=== PATIENT | male | born 1995 | race Two or more races ===

== ENCOUNTER 2019-01-02 14:24 | Inpatient (IN) | payer MEDICAID ==
[2019-01-02] VITALS (9 sets, daily range): BP systolic 91–126; BP diastolic 44–80
[~2019-01-02] VITALS: Ht 165.1 cm; Wt 59.4 kg
[~2019-01-02 14:24] MED LIST: Cefepime HCl 1 GM in NS 55 ML IV STA
[2019-01-02] MEDS ORDERED: LORazepam Inj 2mg/ml 1ml IV ONE (14:30)
[2019-01-02] MEDS ORDERED: Sodium Chloride 1,900 ML IVLG ONE (14:30)
[2019-01-02] MEDS ORDERED: Acetaminophen 650 MG SUPP RECTAL ONE (14:30)
[2019-01-02] MEDS ORDERED: levETIRAcetam 500mg/NS100ml 100 ML IVPB ONE (14:30)
[2019-01-02] MEDS ORDERED: Vancomycin 1 GM in NS 275 ML IV ONE (14:30)
[2019-01-02] MEDS ORDERED: ALBUTEROL2.5 MG/3 M INH (14:36)
--- NOTE | 2019-01-02 14:40 | Emergency Room Report ---
History of Present Illness General Chief Complaint: Seizure Source: Family Member, Medical Record, EMS Present Illness HPI Patient is brought by EMS from a custodial facility. Apparently has a fever and also seizures. Patient has a tracheostomy and is unable to communicate at this time. According to family member he was discharged from [facility] yesterday. When he left the hospital he still had a fever. 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 He's been treated with by PLEX and IVIG. Also it appears that he got rituximab. When he was admitted on December 26 he did have evidence of possible pneumonia at that time. This was treated with antibiotics. Because of uncontrolled seizures he had respiratory failure. This finally led to a tracheostomy. The patient also has a gastrostomy tube. 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 His mom says that these are persistent and never extinguished. The patient is on Keppra and valproic acid. 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 Social History Narrative from SNF Reviewed Nursing Documentation: PMH: Agreed; PSxH: Agreed Nursing Documentation-PMH Hx Cardiac Problems: No - ENCEPHALOPY Hx Seizures: Yes Review of Systems All Other Systems: limited Physical Exam Vital Signs Date Time Temp Pulse Resp B/P (MAP) Pulse Ox O2 Delivery O2 Flow Rate FiO2 01/02/19 14:15 101.1 151 22 120/73 100 Ambu-Bag General Appearance: moderate distress, Chronically Ill Head: normocephalic, atraumatic Eyes: bilateral eye normal inspection, bilateral eye PERRL, bilateral eye abnormal EOM - constant stare ENT: dry mucus membranes, other - constant motor movement of lips and mough Neck: supple, tracheotomy Respiratory: respiratory distress, rales, rhonchi Cardiovascular #1: no edema, no JVD, tachycardia Cardiovascular #2: 2+ radial (R) Gastrointestinal: other - Gastrostomy tube, decreased bowel sounds Genitourinary: other - Uncircumcised Musculoskeletal: other - Atrophy Neurologic: other - Not responding to exter with fasciculations of lips Psychiatric: other - Stupor Reflexes: 3+ knee (R), 3+ knee (L) Skin: other - Hot and diaphoretic Procedures Critical Care Time Critical Care Time Total Critical Care Time: 60 min bedside evaluation and treatment excludes procedures (EKG). Reason for critical care: sepsis, pneumonia, alternative history, treatment for possible seizures Possible complications: hypotension, hypertension, OH, shock, arrhythmias, metabolic acidosis, end organ damage, respiratory failure. Interventions: sepsis resuscitation, antibiotics, vent adjustment, repeat evaluations, discussions with family Course: Patient presents with fever, respiratory distress and allergic seizures with a history of encephalopathy. Sepsis resuscitation initiated and antibiotics begun. Patient placed on ventilator (prior was on CPAP). Discussion with family and review of records from [facility]. Treatment with Ativan and Keppra. Transient hypotension treated with fluid bolus. Reassessment. Discussion with RT ventilator setting adjustment. Determination of level of care. Discussion with admitting physician. Consultations: nursing staff, EMS, family, RT, admitting MD Performed by: Dr. Roman Tolerated well condition = serious Medical Decision Making Diagnostic Impression: Primary Impression: Sepsis Qualified Codes: A41.9 - Sepsis, unspecified organism Additional Impressions: Pneumonia Qualified Codes: J18.1 - Lobar pneumonia, unspecified organism Anti-NMDA receptor encephalitis ER Course Patient presents with fever, respiratory distress and h/o seizures. Differential includes sepsis, pneumonia, aspiration, uncontrolled seizures, electrolyte abnormalities amongst others. Evaluation will be with chest x-ray, EKG and labs. The patient will get sepsis resuscitation, Tylenol and antibiotics. The patient was on CPAP before he needs to be placed on a ventilator at this time. In addition Ativan has been ordered along with Keppra. At baseline Keppra level has been ordered also. As mom states baseline mentation and neurologic function, CT not indicated. EKG ST. CXR L infiltrate. Leukocytosis with L shift. CMP unremarkable. Initial lactate elevated. ABG with adequate oxygenation and pH. BP dropped 88. Still tachycardic. Rebolus. Improved with bolus. BP 99. Bolus LR as HR still elevated. Temp better. Repeat lactate normal. Good capillary fill. Mentation unchanged. (Sepsis re-evaluation) Appears to be fluid responsive. Valproic acid level undetected. No tonic/clonic seizure activity and Keppra had been given. Discussed with Dr. Leung and family. Decrease FIO2. Admit SDU. Laboratory Tests Test 01/02/19 14:55 01/02/19 15:00 01/02/19 15:05 01/02/19 15:40 Arterial Blood pH 7.438 (7.350-7.450) Arterial Blood Partial Pressure CO2 32.4 mmHg (35.0-45.0) L Arterial Blood Partial Pressure O2 159.4 mmHg (75.0-100.0) H Arterial Blood HCO3 21.4 mmol/L (22.0-26.0) L Arterial Blood Oxygen Saturation 98.6 % (95-100) Arterial Blood Base Excess -2.2 (-2-2) L Jurgen Test Positive White Blood Count 11.2 K/UL (4.8-10.8) H Red Blood Count 3.78 M/UL (4.70-6.10) L Hemoglobin 11.5 G/DL (14.2-18.0) L Hematocrit 34.3 % (42.0-52.0) L Mean Corpuscular Volume 91 FL (80-99) Mean Corpuscular Hemoglobin 30.4 PG (27.0-31.0) Mean Corpuscular Hemoglobin Concent 33.5 G/DL (32.0-36.0) Red Cell Distribution Width 13.1 % (11.6-14.8) Platelet Count 141 K/UL (150-450) L Mean Platelet Volume 5.8 FL (6.5-10.1) L Neutrophils (%) (Auto) % (45.0-75.0) Lymphocytes (%) (Auto) % (20.0-45.0) Monocytes (%) (Auto) % (1.0-10.0) Eosinophils (%) (Auto) % (0.0-3.0) Basophils (%) (Auto) % (0.0-2.0) Neutrophils % (Manual) Pending Lymphocytes % (Manual) Pending Prothrombin Time 12.7 SEC (9.30-11.50) H Prothrombin Time INR 1.2 (0.9-1.1) H PTT 31 SEC (23-33) Sodium Level 135 MMOL/L (136-145) L Potassium Level 3.8 MMOL/L (3.5-5.1) Chloride Level 98 MMOL/L (98-107) Carbon Dioxide Level 27 MMOL/L (21-32) Anion Gap 10 mmol/L (5-15) Blood Urea Nitrogen 16 mg/dL (7-18) Creatinine 0.7 MG/DL (0.55-1.30) Estimate Glomerular Filtration Rate > 60 mL/min (>60) Glucose Level 121 MG/DL (74-106) H Lactic Acid Level 2.10 mmol/L (0.4-2.0) H 1.40 mmol/L (0.66-2.22) Calcium Level 9.0 MG/DL (8.5-10.1) Magnesium Level 1.9 MG/DL (1.8-2.4) Total Bilirubin 0.2 MG/DL (0.2-1.0) Aspartate Amino Transferase (AST) 27 U/L (15-37) Alanine Aminotransferase (ALT) 39 U/L (12-78) Alkaline Phosphatase 70 U/L (46-116) Total Creatine Kinase 34 U/L (26-308) Troponin I 0.000 ng/mL (0.000-0.056) Pro-B-Type Natriuretic Peptide 443 pg/mL (0-125) H Total Protein 8.1 G/DL (6.4-8.2) Albumin 2.8 G/DL (3.4-5.0) L Globulin 5.3 g/dL Albumin/Globulin Ratio 0.5 (1.0-2.7) L Lipase 342 U/L (73-393) Valproic Acid Level < 3 MCG/ML (50-100) L Levetiracetam Level Pending Urine Color Pale yellow Urine Appearance Clear Urine pH 6 (4.5-8.0) Urine Specific [place] 1.010 (1.005-1.035) Urine Protein 1+ (NEGATIVE) H Urine Glucose (UA) Negative (NEGATIVE) Urine Ketones Negative (NEGATIVE) Urine Blood 5+ (NEGATIVE) H Urine Nitrite Negative (NEGATIVE) Urine Bilirubin Negative (NEGATIVE) Urine Urobilinogen Normal MG/DL (0.0-1.0) Urine Leukocyte Esterase Negative (NEGATIVE) Urine RBC 10-15 /HPF (0 - 0) H Urine WBC 2-4 /HPF (0 - 0) Urine Squamous Epithelial Cells None /LPF (NONE/OCC) Urine Bacteria Few /HPF (NONE) EKG Diagnostic Results Rate: tachycardiac Rhythm: other ST Segments: no acute changes Rhythm Strip Diag. Results EP Interpretation: yes Rhythm: no PVC's, no ectopy, other - Sinus tachycardia Chest X-Ray Diagnostic Results Chest X-Ray Diagnostic Results : Chest X-Ray Ordered: Yes # of Views/Limited/Complete: 1 View Indication: Other EP Interpretation: Yes Interpretation: no effusion, no pneumothorax, other - LLL infiltrate Impression: Other Electronically Signed by: Electronically signed by Kojo Roman MD Last Vital Signs Date Time Temp Pulse Resp B/P (MAP) Pulse Ox O2 Delivery O2 Flow Rate FiO2 01/03/19 05:24 107 27 35 01/03/19 05:00 134/95 (108) 100 01/03/19 04:00 100.8 01/03/19 04:00 Mechanical Ventilator 01/02/19 18:45 55.0 Status: improved Disposition: ADMITTED INPATIENT Condition: Critical Kojo Roman MD Jan 02, 2019 14:40
[2019-01-02] MEDS ORDERED: ASCORBIC ACID500 MG ORAL (14:48)
[2019-01-02] MEDS ORDERED: VALPROIC ACID250 MG GT (14:48)
[2019-01-02] MEDS ORDERED: SENNA8.6 M2 GT (14:48)
[2019-01-02] MEDS ORDERED: CLOBAZAM10 MG GT (14:48)
[2019-01-02] MEDS ORDERED: LANSOPRAZOLE15 MG GT (14:48)
[2019-01-02] MEDS ORDERED: LEVOCARNITINE330 M1 GT (14:48)
[2019-01-02] MEDS ORDERED: METAMUCIL1 PK1 GT (14:48)
[2019-01-02] MEDS ORDERED: ACETAMINOPHEN325 M1 GT (14:48)
[2019-01-02] MEDS ORDERED: ZINC SULFATE220 M2 ORAL (14:48)
[2019-01-02] MEDS ORDERED: MULTI-DELYN237 ML GT (14:48)
--- NOTE | 2019-01-02 14:53 | NUR ---
ED Nurse Note: Pt BIBA from [facility] s/p seizures starting today. EMS also stated that he has a fever. Upon arrival to ED, pt has a rectal temp of 101.7F. Pt is full code. Vent dependent. Gtube in place. Sating at 100%.
--- NOTE | 2019-01-02 15:19 | Diagnostic Imaging Report ---
Indication: Dyspnea Comparison: None A single view chest radiograph was obtained. Findings: Cardiomediastinal appearance is within normal limits for age. Tracheostomy noted. The lungs are clear. Pulmonary vascularity is appropriate. The diaphragmatic contour is smooth and costophrenic angles are sharp. No pleural effusions are identified. The bones are unremarkable. Impression: No acute findings
[2019-01-02 15:22] LABS: INR 1.2 (0.9-1.1)
[2019-01-02 15:29] LABS: HEMATOCRIT 34.3 % (42.0-52.0); HEMOGLOBIN 11.5 G/DL (14.2-18.0); MEAN CORPUSCULAR VOLUME 91 FL (80-99); PLATELET COUNT 141 K/UL (150-450); RED BLOOD COUNT 3.78 M/UL (4.70-6.10); RED CELL DISTRIBUTION WIDTH 13.1 % (11.6-14.8); WHITE BLOOD COUNT 11.2 K/UL (4.8-10.8)
[2019-01-02 15:31] LABS: ANION GAP 10 mmol/L (5-15); BLOOD UREA NITROGEN 16 mg/dL (7-18); CARBON DIOXIDE 27 MMOL/L (21-32); CHLORIDE 98 MMOL/L (98-107); CREATININE 0.7 MG/DL (0.55-1.30); POTASSIUM 3.8 MMOL/L (3.5-5.1); SODIUM 135 MMOL/L (136-145)
[2019-01-02 15:45] LABS: ALANINE AMINOTRANSFERASE 39 U/L (12-78); ALBUMIN 2.8 G/DL (3.4-5.0); ALBUMIN/GLOBULIN RATIO 0.5 (1.0-2.7); ALKALINE PHOSPHATASE 70 U/L (46-116); ASPARTATE AMINO TRANSFERASE 27 U/L (15-37); BILIRUBIN,TOTAL 0.2 MG/DL (0.2-1.0); CREATINE KINASE 34 U/L (26-308)
[2019-01-02 16:09] LABS: APPEARANCE,URINE CLEAR; BILIRUBIN, URINE NEGATIVE (NEGATIVE); COLOR,URINE PALE YELLOW; GLUCOSE, URINE (UA) NEGATIVE (NEGATIVE); KETONES,URINE NEGATIVE (NEGATIVE); LEUKOCYTE ESTERASE ,URINE NEGATIVE (NEGATIVE); NITRITE,URINE NEGATIVE (NEGATIVE); PH,URINE 6 (4.5-8.0); PROTEIN,URINE 1+ (NEGATIVE); UROBILINOGEN,URINE NORMAL MG/DL (0.0-1.0)
--- NOTE | 2019-01-02 16:32 | NUR ---
ED Nurse Note: Sacral redness noted on pt.
[2019-01-02] MEDS ORDERED: LR 1000ml 1,000 ML IV STA (17:18)
[2019-01-02] MEDS: LR 1000ml 1,000 ML IV SCH ×2 (17:30→17:45)
--- NOTE | 2019-01-02 18:12 | NUR ---
ED Nurse Note: Gave telephone report to ILA Damon.
--- NOTE | 2019-01-02 18:15 | NUR ---
ED Nurse Note: Waiting for RT arrival to send pt up to unit.
--- NOTE | 2019-01-02 18:44 | NUR ---
ED Nurse Note: Pt brought up to unit w/ no acute distress noted. Pt had not belongings.
--- NOTE | 2019-01-02 18:50 | NUR ---
NURSE NOTES: Pt admitted from ER via [facility]. Received hand-off report from Olivia THORPE. Pt is on vent via trach Shiley 8.0, AC16, VT450, FIO2 40%, Peep 5.0, with O2Sat 100%. GT in place, tubing clumped. Peripheral IV access on left AC #20G, and right FA #20G, both saline locks, patent/intact. Skin is intact, coccyx redness noted. Pt is on seizure precautions, with side rails padded, bed locked and in lowest position, with three side rails up and head of bed at semi-hunter's, and call light within reach. Magdaleno in place, draining clear/yellow urine. monitoring specialist displays ST, with heart rate fluctuating from 120's to 130's. Pt has no belonging's. Will continue to monitor and endorse to next shift for admission orders. Addendum: 01/02/19 at 1941 by PITER LEMUS RN Belonging's list was signed with the receiving nurse.
--- NOTE | 2019-01-02 19:00 | NUR ---
NURSE NOTES: Patient received from Marisol THORPE. Patient newly admitted from ER. Patient is trached Shiley 8, AC 16, 450tv, 40% FiO2 and peep of 5. Patient Has L and R AC 20G SL. Patient is obtunded, opens eyes spontaneously, has no strength at bilateral arm. able to shake legs a bit. Patient has a Magdaleno that was inserted in ER. Will continue to monitor.
--- NOTE | 2019-01-02 19:12 | NUR ---
NURSE NOTES: Called and left message for Dr. Cox for admission orders. Awaiting for call back.
--- NOTE | 2019-01-02 19:30 | NUR ---
NURSE NOTES: Non-blanchable redness on sacral area. Pictures were taken and low air loss mattress applied. Calazime applied to sacral area and Optifoam applied. Addendum: 01/03/19 at 0537 by GINA HEATON RN CORRECTION TO THIS NOTE: Red non blanchable skin with open wound at sacral area. Pictures were taken. Low air loss mattress applied. Triad, non skin barrier film and Optifoam applied. Wound intervention was updated.
--- NOTE | 2019-01-02 19:41 | NUR ---
HAND-OFF: Report given to Guy THORPE. Pt is resting in semi-hunter's position in stable condition. Endorsed plan of care.
--- NOTE | 2019-01-02 20:00 | NUR ---
NURSE NOTES: Patient is tachycardic in the 120s, BP is normotensive, Temperature of 100.1F. Applied Cooling blanket. Fan at bedside. Patient given oral care and cooling bath also provided.
--- NOTE | 2019-01-02 20:18 | NUR ---
NURSE NOTES: Called Dr. Leung and left message regarding admission orders, awaiting for call back.
[2019-01-02] MEDS ORDERED: Albuterol/Ipratropium 3ml neb HHN PRN (20:45)
--- NOTE | 2019-01-02 21:00 | NUR ---
NURSE NOTES: Dr. Leung called back to give admission orders. DVT prophylaxis was provided. Family are at bedside and given updates and the plan of care for the night.
[2019-01-02] MEDS: D5 1/2NS 1,000 ML IV SCH (21:29)
[2019-01-02] MEDS: Heparin 5000 units/ml inj SUBQ SCH (21:36)
--- NOTE | 2019-01-02 22:00 | NUR ---
NURSE NOTES: Dr. Leung at bedside assessing patient and viewing patients chart. Gave Md report and updates. Orders to continue tube feeds from SNF
[2019-01-02] MEDS: Piperacillin/Tazobactam 3.375 GM in NS 110 ML IVPB SCH (23:01)
[2019-01-03] VITALS (24 sets, daily range): BP systolic 117–146; BP diastolic 75–102
--- NOTE | 2019-01-03 | NUR ---
NURSE NOTES: Patient repositioned and provided oral care. No new changes. temperature now is 100.4F. Patient remains Sinus tach with current HR of 109/ D51/2Ns hung earlier and Zosyn abx hung, IV lines remain patent.
--- NOTE | 2019-01-03 02:00 | NUR ---
NURSE NOTES: Patient repositioned and given oral care. HR remains Sinus Tachy. Patients temperature now is 100.0, Rectal tube remains in place, no leaks. Will continue to monitor.
--- NOTE | 2019-01-03 04:00 | NUR ---
NURSE NOTES: Patient repositioned and provided oral care, no acute distress at this time, but remains feverish. Cooling blanket remains on. Patient HR is slightly coming down. Patient continues to be having diarrhea.
[2019-01-03] MEDS: D5 1/2NS 1,000 ML IV SCH (04:43)
[2019-01-03 05:12] LABS: BASOPHILS % (AUTO) 0.4 % (0.0-2.0); HEMATOCRIT 28.2 % (42.0-52.0); HEMOGLOBIN 9.3 G/DL (14.2-18.0); LYMPHOCYTES % (AUTO) 10.7 % (20.0-45.0); MEAN CORPUSCULAR VOLUME 91 FL (80-99); MONOCYTES % (AUTO) 9.2 % (1.0-10.0); NEUTROPHILS % (AUTO) 79.7 % (45.0-75.0); PLATELET COUNT 120 K/UL (150-450); RED BLOOD COUNT 3.11 M/UL (4.70-6.10); WHITE BLOOD COUNT 11.8 K/UL (4.8-10.8)
[2019-01-03 05:40] LABS: ALANINE AMINOTRANSFERASE 43 U/L (12-78); ALBUMIN 2.1 G/DL (3.4-5.0); ALBUMIN/GLOBULIN RATIO 0.5 (1.0-2.7); ALKALINE PHOSPHATASE 55 U/L (46-116); ANION GAP 7 mmol/L (5-15); ASPARTATE AMINO TRANSFERASE 30 U/L (15-37); BILIRUBIN,TOTAL 0.2 MG/DL (0.2-1.0); BLOOD UREA NITROGEN 4 mg/dL (7-18); CALCIUM 8.1 MG/DL (8.5-10.1); CARBON DIOXIDE 27 MMOL/L (21-32); CHLORIDE 101 MMOL/L (98-107); CREATININE 0.4 MG/DL (0.55-1.30); SODIUM 135 MMOL/L (136-145)
--- NOTE | 2019-01-03 06:00 | NUR ---
NURSE NOTES: Repositioned and hung Abx. Patient suctioned and made comfortable. No acute distress at this time. Vitals remains stable, making good urine output, IV lines remains patent.
[2019-01-03] MEDS: Piperacillin/Tazobactam 3.375 GM in NS 110 ML IVPB SCH ×3 (06:08→21:30)
--- NOTE | 2019-01-03 06:27 | NUR ---
NURSE NOTES: C-diff coming back negative
--- NOTE | 2019-01-03 07:03 | NUR ---
RESPIRATORY NOTE:Received pt on current vent settings with size 8 shiley trached cuffed. Pt is sleeping and showing no s/s of distress. Vent alarms are on and audible. Will cont. to monitor pt.
--- NOTE | 2019-01-03 07:40 | NUR ---
NURSE NOTES: Report received from Guy THORPE. Pt awake, obtunded, eyes open without tracking. Pt on cardiac surgeon, SR. PT on trache to vent shiley #8, AC 16, TV 450, 40% fiO2, PEEP 5. GTF with Jevity 1.2 running at 55 cc/hr. Rectal tube noted and intact draining liquid, brown stool to gravity. Cooling blanket on monitor mode, rectal temp 99.2. Magdaleno noted and intact draining clear, yellow urine to gravity. LAC 20G and RFA 20G noted with D51/2 NS @ 150 cc/hr. Safety measures in place with bed locked and in lowest position, side rails x3 up and bed alarm on. Will continue to monitor and continue plan of care.
--- NOTE | 2019-01-03 08:21 | NUR ---
NURSE NOTES: Pt generalized seizure activity for about 40 seconds. Called and left message to Dr Leung. Will continue to monitor.
[2019-01-03] MEDS: Heparin 5000 units/ml inj SUBQ SCH ×2 (08:51→21:32)
[2019-01-03] MEDS ORDERED: levETIRAcetam 500mg/5ml Liquid GT SCH (09:00)
[2019-01-03] MEDS: Pantoprazole Inj IVP SCH (09:00)
[2019-01-03] MEDS: LORazepam Inj 2mg/ml 1ml IV PRN (09:01)
--- NOTE | 2019-01-03 09:11 | NUR ---
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 PNA VS: BP 91/73, P 151, T 101.7, RR 22, SpO2 100 VENT AC 16, TV 450, PEEP 5.0, FiO2 40 WBC 11.2, RBC 3.78, H&H 11.5/34.3, LACTIC ACID 2.10, Na 135, K 3.0, BUN 4, CR 0.4 IS:LACTATED RINGERS x1L IV NS x1L IV VANCOMYCIN 275ml IV NS x1.9L IVLG LORAZEPAM 1mg IV LEVETIRACETAM 100ml IVPB CEFEPIME HCI 55ml IV LEVOFLOXACIN 150ml IV ADMITEED TO ICU DCP: RETURN TO [facility]
--- NOTE | 2019-01-03 10:14 | NUR ---
NURSE NOTES: Dr Thompson and Dr Hardy here to see pt. Discussed KCL level and seizures. Will continue to monitor.
--- NOTE | 2019-01-03 10:29 | Consultation ---
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 Allergies: Coded Allergies: No Known Allergies (Unverified , 01/02/19) Medication History Scheduled Ascorbic Acid* (Ascorbic Acid*), 500 MG ORAL DAILY, (Reported) Lansoprazole* (Lansoprazole*), 15 MG GT DAILY, (Reported) Levocarnitine (levOCARNitine), 330 MG GT EVERY 8 HOURS, (Reported) Multivitamin Liquid* (Multi-Delyn*), 5 ML GT DAILY, (Reported) Psyllium (Metamucil Powder), 1 PKT GT BID, (Reported) Sennosides (Senna), 8.6 MG GT DAILY, (Reported) Valproic Acid (Valproic Acid), 250 MG GT EVERY 8 HOURS, (Reported) Zinc Sulfate (Zinc Sulfate), 220 MG ORAL DAILY, (Reported) Scheduled PRN Acetaminophen* (Acetaminophen 325MG Tablet*), 650 MG GT Q6H PRN for Pain Scale ( 3-5), (Reported) Albuterol Sulfate* (Albuterol Sulfate Hhn*), 3 ML INH Q4H PRN for Shortness of Breath, (Reported) Miscellaneous Medications cloBAZam (cloBAZam), 10 MG GT, (Reported) Patient History Healthcare decision maker Sonia Roth Resuscitation status Full Code Advanced Directive on File No Past Medical/Surgical History Past Medical/Surgical History: (1) Chronic respiratory failure (2) S/P percutaneous endoscopic gastrostomy (PEG) tube placement (3) Anti-NMDA receptor encephalitis Review of Systems All Other Systems: negative except mentioned in HPI Physical Exam General Appearance: WD/WN Lines, tubes and drains: peripheral, trach, gtube HEENT: normocephalic, atraumatic Neck: non-tender, normal alignment Respiratory/Chest: chest wall non-tender, lungs clear Breasts: no masses Cardiovascular/Chest: normal peripheral pulses, normal rate Abdomen: normal bowel sounds Genitourinary/Rectal: normal genital exam Extremities: normal range of motion Last 24 Hour Vital Signs Date Time Temp Pulse Resp B/P (MAP) Pulse Ox O2 Delivery O2 Flow Rate FiO2 01/03/19 10:00 103 17 118/77 (91) 100 01/03/19 09:02 142 24 35 01/03/19 09:00 106 17 117/75 (89) 100 01/03/19 08:00 40 01/03/19 08:00 99.2 129 28 123/81 (95) 100 01/03/19 08:00 Mechanical Ventilator 01/03/19 08:00 96 01/03/19 07:00 102 21 35 01/03/19 07:00 93 22 127/90 (102) 100 01/03/19 06:00 94 20 146/96 (113) 100 01/03/19 05:24 107 27 35 01/03/19 05:00 115 20 134/95 (108) 100 01/03/19 04:00 123 01/03/19 04:00 40 01/03/19 04:00 100.8 115 23 137/89 (105) 100 01/03/19 04:00 Mechanical Ventilator 01/03/19 03:00 108 20 125/86 (99) 100 01/03/19 02:59 115 24 35 01/03/19 02:00 111 22 134/92 (106) 100 01/03/19 01:09 102 20 35 01/03/19 01:00 109 21 117/87 (97) 100 01/03/19 00:00 40 01/03/19 00:00 100.4 100 20 118/83 (95) 100 01/03/19 00:00 112 01/03/19 00:00 Mechanical Ventilator 01/02/19 23:00 122 22 126/76 (93) 100 01/02/19 22:57 135 23 40 01/02/19 22:00 131 26 108/44 (65) 100 01/02/19 21:28 114 20 40 01/02/19 21:00 118 22 106/54 (71) 100 01/02/19 20:00 130 01/02/19 20:00 125 23 106/60 (75) 100 01/02/19 20:00 40 01/02/19 20:00 Mechanical Ventilator 01/02/19 19:12 139 24 40 01/02/19 19:00 101.7 129 23 104/66 (79) 100 01/02/19 18:56 Mechanical Ventilator 01/02/19 18:56 101.4 23 115/80 (92) 100 01/02/19 18:45 99.6 139 29 108/63 100 Mechanical Ventilator 55.0 40 01/02/19 17:05 135 30 40 01/02/19 17:00 100.0 120 23 91/73 100 Mechanical Ventilator 55.0 40 01/02/19 16:06 40 01/02/19 15:17 99.6 01/02/19 14:55 119 21 Mechanical Ventilator 100 01/02/19 14:55 101.7 119 21 113/73 100 Mechanical Ventilator 55.0 40 01/02/19 14:40 129 29 Mechanical Ventilator 55.0 40 01/02/19 14:36 129 29 40 01/02/19 14:15 101.1 151 22 120/73 100 Ambu-Bag Intake and Output 01/02/19 01/03/19 18:59 06:59 Intake Total 2150 ml 2560.0 ml Output Total 400 ml 2500 ml Balance 1750 ml 60.0 ml Intake Free Water 100 ml IV Total 2150 ml 2310.0 ml Tube Feeding 150 ml Output Urine Total 400 ml 2500 ml # Bowel Movements 1 Laboratory Tests Test 01/02/19 14:55 01/02/19 15:00 01/02/19 15:05 01/02/19 15:40 Arterial Blood pH 7.438 (7.350-7.450) Arterial Blood Partial Pressure CO2 32.4 mmHg (35.0-45.0) L Arterial Blood Partial Pressure O2 159.4 mmHg (75.0-100.0) H Arterial Blood HCO3 21.4 mmol/L (22.0-26.0) L Arterial Blood Oxygen Saturation 98.6 % (95-100) Arterial Blood Base Excess -2.2 (-2-2) L Jurgen Test Positive White Blood Count 11.2 K/UL (4.8-10.8) H Red Blood Count 3.78 M/UL (4.70-6.10) L Hemoglobin 11.5 G/DL (14.2-18.0) L Hematocrit 34.3 % (42.0-52.0) L Mean Corpuscular Volume 91 FL (80-99) Mean Corpuscular Hemoglobin 30.4 PG (27.0-31.0) Mean Corpuscular Hemoglobin Concent 33.5 G/DL (32.0-36.0) Red Cell Distribution Width 13.1 % (11.6-14.8) Platelet Count 141 K/UL (150-450) L Mean Platelet Volume 5.8 FL (6.5-10.1) L Neutrophils (%) (Auto) % (45.0-75.0) Lymphocytes (%) (Auto) % (20.0-45.0) Monocytes (%) (Auto) % (1.0-10.0) Eosinophils (%) (Auto) % (0.0-3.0) Basophils (%) (Auto) % (0.0-2.0) Differential Total Cells Counted 100 Neutrophils % (Manual) 70 % (45-75) Lymphocytes % (Manual) 9 % (20-45) L Monocytes % (Manual) 3 % (1-10) Eosinophils % (Manual) 0 % (0-3) Basophils % (Manual) 0 % (0-2) Band Neutrophils 18 % (0-8) H Platelet Estimate Adequate Platelet Morphology Normal Hypochromasia 1+ Anisocytosis 1+ Prothrombin Time 12.7 SEC (9.30-11.50) H Prothromb Time International Ratio 1.2 (0.9-1.1) H Activated Partial Thromboplast Time 31 SEC (23-33) Sodium Level 135 MMOL/L (136-145) L Potassium Level 3.8 MMOL/L (3.5-5.1) Chloride Level 98 MMOL/L (98-107) Carbon Dioxide Level 27 MMOL/L (21-32) Anion Gap 10 mmol/L (5-15) Blood Urea Nitrogen 16 mg/dL (7-18) Creatinine 0.7 MG/DL (0.55-1.30) Estimat Glomerular Filtration Rate > 60 mL/min (>60) Glucose Level 121 MG/DL (74-106) H Lactic Acid Level 2.10 mmol/L (0.4-2.0) H 1.40 mmol/L (0.66-2.22) Calcium Level 9.0 MG/DL (8.5-10.1) Magnesium Level 1.9 MG/DL (1.8-2.4) Total Bilirubin 0.2 MG/DL (0.2-1.0) Aspartate Amino Transf (AST/SGOT) 27 U/L (15-37) Alanine Aminotransferase (ALT/SGPT) 39 U/L (12-78) Alkaline Phosphatase 70 U/L (46-116) Total Creatine Kinase 34 U/L (26-308) Troponin I 0.000 ng/mL (0.000-0.056) Pro-B-Type Natriuretic Peptide 443 pg/mL (0-125) H Total Protein 8.1 G/DL (6.4-8.2) Albumin 2.8 G/DL (3.4-5.0) L Globulin 5.3 g/dL Albumin/Globulin Ratio 0.5 (1.0-2.7) L Lipase 342 U/L (73-393) Valproic Acid (Depakene) Level < 3 MCG/ML (50-100) L Levetiracetam (Keppra) Level Pending Urine Color Pale yellow Urine Appearance Clear Urine pH 6 (4.5-8.0) Urine Specific [place] 1.010 (1.005-1.035) Urine Protein 1+ (NEGATIVE) H Urine Glucose (UA) Negative (NEGATIVE) Urine Ketones Negative (NEGATIVE) Urine Blood 5+ (NEGATIVE) H Urine Nitrite Negative (NEGATIVE) Urine Bilirubin Negative (NEGATIVE) Urine Urobilinogen Normal MG/DL (0.0-1.0) Urine Leukocyte Esterase Negative (NEGATIVE) Urine RBC 10-15 /HPF (0 - 0) H Urine WBC 2-4 /HPF (0 - 0) Urine Squamous Epithelial Cells None /LPF (NONE/OCC) Urine Bacteria Few /HPF (NONE) Test 01/03/19 04:00 White Blood Count 11.8 K/UL (4.8-10.8) H Red Blood Count 3.11 M/UL (4.70-6.10) L Hemoglobin 9.3 G/DL (14.2-18.0) L Hematocrit 28.2 % (42.0-52.0) L Mean Corpuscular Volume 91 FL (80-99) Mean Corpuscular Hemoglobin 30.0 PG (27.0-31.0) Mean Corpuscular Hemoglobin Concent 33.0 G/DL (32.0-36.0) Red Cell Distribution Width 13.0 % (11.6-14.8) Platelet Count 120 K/UL (150-450) L Mean Platelet Volume 5.9 FL (6.5-10.1) L Neutrophils (%) (Auto) 79.7 % (45.0-75.0) H Lymphocytes (%) (Auto) 10.7 % (20.0-45.0) L Monocytes (%) (Auto) 9.2 % (1.0-10.0) Eosinophils (%) (Auto) 0.0 % (0.0-3.0) Basophils (%) (Auto) 0.4 % (0.0-2.0) Erythrocyte Sedimentation Rate 100 MM/HR (0-15) H Sodium Level 135 MMOL/L (136-145) L Potassium Level 3.0 MMOL/L (3.5-5.1) L Chloride Level 101 MMOL/L (98-107) Carbon Dioxide Level 27 MMOL/L (21-32) Anion Gap 7 mmol/L (5-15) Blood Urea Nitrogen 4 mg/dL (7-18) L Creatinine 0.4 MG/DL (0.55-1.30) L Estimat Glomerular Filtration Rate > 60 mL/min (>60) Glucose Level 137 MG/DL (74-106) H Calcium Level 8.1 MG/DL (8.5-10.1) L Total Bilirubin 0.2 MG/DL (0.2-1.0) Aspartate Amino Transf (AST/SGOT) 30 U/L (15-37) Alanine Aminotransferase (ALT/SGPT) 43 U/L (12-78) Alkaline Phosphatase 55 U/L (46-116) Total Protein 6.5 G/DL (6.4-8.2) Albumin 2.1 G/DL (3.4-5.0) L Globulin 4.4 g/dL Albumin/Globulin Ratio 0.5 (1.0-2.7) L Vitamin D 25-Hydroxy Pending 25-Hydroxy Vitamin D2 Pending 25-Hydroxy Vitamin D3 Pending Thyroid Stimulating Hormone (TSH) 1.649 uiU/mL (0.358-3.740) Microbiology Date/Time Source Procedure Growth Status 01/02/19 23:00 Stool Clostridium difficile Toxin Assay - Final Complete Height (Feet): 5 Height (Inches): 5.00 Weight (Pounds): 127 Medications Current Medications Medications (Trade) Dose Ordered Sig/Cassidy Route PRN Reason Start Time Stop Time Status Last Admin Dose Admin Albuterol/ Ipratropium (Albuterol/ Ipratropium) 3 ml Q4HRT PRN HHN Shortness of Breath 01/02/19 20:45 01/07/19 20:44 Dextrose/Sodium Chloride 1,000 ml @ 150 mls/hr Q6H40M IV 01/02/19 22:00 02/01/19 21:59 01/03/19 04:43 Heparin Sodium (Porcine) (Heparin 5000 units/ml) 5,000 units EVERY 12 HOURS SUBQ 01/02/19 21:00 02/01/19 20:59 01/02/19 21:36 Levetiracetam (Keppra) 500 mg Q12HR GT 01/03/19 09:00 02/02/19 08:59 01/03/19 09:01 Lorazepam (Ativan 2mg/ml 1ml) 2 mg Q2H PRN IV For Seizures 01/03/19 08:45 01/10/19 08:44 01/03/19 09:01 Pantoprazole (Protonix) 40 mg DAILY IVP 01/03/19 09:00 02/02/19 08:59 01/03/19 09:00 Piperacillin Sod/ Tazobactam Sod 3.375 gm/Sodium Chloride 110 ml @ 27.5 mls/hr Q8HR IVPB 01/02/19 22:00 01/09/19 21:59 01/03/19 06:08 Assessment/Plan Problem List: (1) Sepsis ICD Codes: A41.9 - Sepsis, unspecified organism SNOMED: 62330019 Qualifiers: Qualified Codes: A41.9 - Sepsis, unspecified organism (2) Chronic respiratory failure ICD Codes: J96.10 - Chronic respiratory failure, unspecified whether with hypoxia or hypercapnia SNOMED: 28233135 (3) S/P percutaneous endoscopic gastrostomy (PEG) tube placement ICD Codes: Z93.1 - Gastrostomy status SNOMED: 801045267 (4) Anti-NMDA receptor encephalitis ICD Codes: G04.81 - Other encephalitis and encephalomyelitis SNOMED: 16441601 Respiratory: monitor respiratory rate, adjust FIO2, CXR Cardiac: continue to monitor HR/BP Renal: F/U I&O, check electrolytes Infectious Disease: check cultures Gastrointestinal: continue feedings/current rate Endocrine: monitor blood sugar Hematologic: monitor H/H, transfuse if hgb<8.5 Neurologic: PRN Ativan, keep patient comfortable Prophylaxis: Protonix Disposition: keep in ICU Notes Reviewed: decaler, cardio Discussed with: nurses, complex case manager Babita Hardy MD January 03, 2019 10:29
--- NOTE | 2019-01-03 11:27 | NUR ---
RD ASSESSMENT & RECOMMENDATIONS SEE CARE ACTIVITY FOR COMPLETE ASSESSMENT DAILY ESTIMATED NEEDS: Needs based on Critical care, underweight, wound/ 41kg 28-35 kcals/kg [id number] total kcals 1.25-2 g protein/kg 51-82 g total protein 25-30 mL/kg 25-1230 total fluid mLs NUTRITION DIAGNOSIS: * Swallowing difficulty R/T respiratory status, dx of uncontrolled seizures as evidenced by trach/vent dep, PEG dep. * Increased kcal/prot needs R/T wound healing and underweight status as evidenced by admitted w/ sacral redness per RN report, low BMI per guidelines, pt @ 73% IBW. CURRENT TF:Jevity 1.2 @ 55ml/hr x 24hrs ENTERAL NUTRITION RECOMMENDATIONS: Jevity 1.2 @ 50ml/hr x 24 hrs to provide 1200ml, 1440kcal, 67g prot, 968ml free water * Rec to decrease goal rate to 50ml/hr x 24 hrs -> meets 100% est kcal/prot needs * HOB over 30 degrees/ water flush per MD ADDITIONAL RECOMMENDATIONS: 1) Per SNF: HT=63", WT=90lbs (obtained 01/02/19) 2) Calibrated bedscale wt: conflicting wts, pt on P200 mattress 3) Monitor lytes, replete as needed 4) Consider probiotics BID -> +diarrhea 5) Continue Jasbir 1pkt BID for skin integrity, f/up w/ wound eval 6) Monitor BGs w/ TF
--- NOTE | 2019-01-03 11:51 | NUR ---
NURSE NOTES: Mom visiting with pt. Fan turned back on because temp was 99. Will continue to monitor.
--- NOTE | 2019-01-03 13:22 | NUR ---
NURSE NOTES: Pt turned and repositioned. Mom at bedside. Will continue to monitor.
--- NOTE | 2019-01-03 13:30 | NUR ---
Social Service Note Patient opens eyes, non-responsive with trach and vent support. SW confirmed with [place] [phone] patient was transferred on 01/01 form [facility] and within less then 24 hours [place] [facility] Patient mother Sonia Roth [phone] and brother Flynn Roth [phone] are patient's emergency contacts. Patient is a full code. Patient will continue to require ocean transportation intermediary placement upon discharge. Will continue to monitor and assist as needed.
[2019-01-03] MEDS: Acetaminophen 650mg/20.3ml GT PRN (13:56)
--- NOTE | 2019-01-03 14:54 | Diagnostic Imaging Report ---
APPROVED REPORT CPT Code: 53348 Present Symptoms Comments: AMS. Screening. BILATERAL: Imaging reveals a patent deep venous system bilaterally. There is no evidence of thrombus within the common femoral, superficial femoral, popliteal or tibial segments. The greater saphenous veins are within normal limits. Doppler indicates normal spontaneous flow within these segments.
--- NOTE | 2019-01-03 15:12 | NUR ---
NURSE NOTES: Pt rectal temp is back down to 99.7. Pt turned and repositioned. Will continue to monitor.
--- NOTE | 2019-01-03 15:55 | NUR ---
NURSE NOTES:WOUND CARE NOTES:Pt presented on admission with non-blanchable erythema without induration or fluctuance to sacrum . Incontinence associated dermatitis noted to groin.scrotum and R and L ischial regions.Medial and posterior aspects of both upper thighs. . Erythema with shearing perianal area. Macular red rash noted to upper/mid back. Both heels are pink and blanchable. No other areas of skin breakdown noted. Tx.Plan: Apply Triad paste to sacrum .Cover with Optifoam drsg. Change every 3 days and prn. Apply Triad Paste to groin,scrotum ,Affected areas upper thighs and perianal areas with each incontinence care. Apply Cavilon Skin Barrier to both heels. Cover each heel with Optifoam drsg. Change every 7 days and prn. Reposition at least every 2hours or as tolerated. APM/LIYA Mattress overlay.
--- NOTE | 2019-01-03 17:14 | Consultation ---
History of Present Illness General Chief Complaint: Seizure Present Illness Allergies: Coded Allergies: No Known Allergies (Unverified , 01/02/19) Medication History Scheduled Ascorbic Acid* (Ascorbic Acid*), 500 MG ORAL DAILY, (Reported) Lansoprazole* (Lansoprazole*), 15 MG GT DAILY, (Reported) Levocarnitine (levOCARNitine), 330 MG GT EVERY 8 HOURS, (Reported) Multivitamin Liquid* (Multi-Delyn*), 5 ML GT DAILY, (Reported) Psyllium (Metamucil Powder), 1 PKT GT BID, (Reported) Sennosides (Senna), 8.6 MG GT DAILY, (Reported) Valproic Acid (Valproic Acid), 250 MG GT EVERY 8 HOURS, (Reported) Zinc Sulfate (Zinc Sulfate), 220 MG ORAL DAILY, (Reported) Scheduled PRN Acetaminophen* (Acetaminophen 325MG Tablet*), 650 MG GT Q6H PRN for Pain Scale ( 3-5), (Reported) Albuterol Sulfate* (Albuterol Sulfate Hhn*), 3 ML INH Q4H PRN for Shortness of Breath, (Reported) Miscellaneous Medications cloBAZam (cloBAZam), 10 MG GT, (Reported) Patient History Healthcare decision maker Sonia Roth Resuscitation status Full Code Advanced Directive on File No Physical Exam Last 24 Hour Vital Signs Date Time Temp Pulse Resp B/P (MAP) Pulse Ox O2 Delivery O2 Flow Rate FiO2 01/03/19 16:52 93 21 35 01/03/19 16:00 88 01/03/19 16:00 98.9 83 16 123/90 (101) 100 01/03/19 16:00 Mechanical Ventilator 01/03/19 16:00 40 01/03/19 15:00 107 16 124/83 (97) 100 01/03/19 15:00 107 20 35 01/03/19 14:26 99.7 01/03/19 14:00 99 17 138/99 (112) 100 01/03/19 13:15 112 20 35 01/03/19 13:00 110 16 128/99 (109) 100 01/03/19 12:00 Mechanical Ventilator 01/03/19 12:00 96 01/03/19 12:00 100.0 78 16 128/83 (98) 100 01/03/19 12:00 40 01/03/19 11:00 100 18 123/81 (95) 100 01/03/19 10:40 133 22 35 01/03/19 10:00 103 17 118/77 (91) 100 01/03/19 09:02 142 24 35 01/03/19 09:00 106 17 117/75 (89) 100 01/03/19 08:00 40 01/03/19 08:00 99.2 129 28 123/81 (95) 100 01/03/19 08:00 Mechanical Ventilator 01/03/19 08:00 96 01/03/19 07:00 102 21 35 01/03/19 07:00 93 22 127/90 (102) 100 01/03/19 06:00 94 20 146/96 (113) 100 01/03/19 05:24 107 27 35 01/03/19 05:00 115 20 134/95 (108) 100 01/03/19 04:00 123 01/03/19 04:00 40 01/03/19 04:00 100.8 115 23 137/89 (105) 100 01/03/19 04:00 Mechanical Ventilator 01/03/19 03:00 108 20 125/86 (99) 100 01/03/19 02:59 115 24 35 01/03/19 02:00 111 22 134/92 (106) 100 01/03/19 01:09 102 20 35 01/03/19 01:00 109 21 117/87 (97) 100 01/03/19 00:00 40 01/03/19 00:00 100.4 100 20 118/83 (95) 100 01/03/19 00:00 112 01/03/19 00:00 Mechanical Ventilator 01/02/19 23:00 122 22 126/76 (93) 100 01/02/19 22:57 135 23 40 01/02/19 22:00 131 26 108/44 (65) 100 01/02/19 21:28 114 20 40 01/02/19 21:00 118 22 106/54 (71) 100 01/02/19 20:00 130 01/02/19 20:00 125 23 106/60 (75) 100 01/02/19 20:00 40 01/02/19 20:00 Mechanical Ventilator 01/02/19 19:12 139 24 40 01/02/19 19:00 101.7 129 23 104/66 (79) 100 01/02/19 18:56 Mechanical Ventilator 01/02/19 18:56 101.4 23 115/80 (92) 100 01/02/19 18:45 99.6 139 29 108/63 100 Mechanical Ventilator 55.0 40 01/02/19 17:05 135 30 40 Intake and Output 01/02/19 01/03/19 19:00 07:00 Intake Total 2150 ml 2590.0 ml Output Total 650 ml 2350 ml Balance 1500 ml 240.0 ml Intake Free Water 100 ml IV Total 2150 ml 2310.0 ml Tube Feeding 180 ml Output Urine Total 650 ml 2350 ml # Bowel Movements 1 Laboratory Tests Test 01/03/19 04:00 White Blood Count 11.8 K/UL (4.8-10.8) H Red Blood Count 3.11 M/UL (4.70-6.10) L Hemoglobin 9.3 G/DL (14.2-18.0) L Hematocrit 28.2 % (42.0-52.0) L Mean Corpuscular Volume 91 FL (80-99) Mean Corpuscular Hemoglobin 30.0 PG (27.0-31.0) Mean Corpuscular Hemoglobin Concent 33.0 G/DL (32.0-36.0) Red Cell Distribution Width 13.0 % (11.6-14.8) Platelet Count 120 K/UL (150-450) L Mean Platelet Volume 5.9 FL (6.5-10.1) L Neutrophils (%) (Auto) 79.7 % (45.0-75.0) H Lymphocytes (%) (Auto) 10.7 % (20.0-45.0) L Monocytes (%) (Auto) 9.2 % (1.0-10.0) Eosinophils (%) (Auto) 0.0 % (0.0-3.0) Basophils (%) (Auto) 0.4 % (0.0-2.0) Erythrocyte Sedimentation Rate 100 MM/HR (0-15) H Sodium Level 135 MMOL/L (136-145) L Potassium Level 3.0 MMOL/L (3.5-5.1) L Chloride Level 101 MMOL/L (98-107) Carbon Dioxide Level 27 MMOL/L (21-32) Anion Gap 7 mmol/L (5-15) Blood Urea Nitrogen 4 mg/dL (7-18) L Creatinine 0.4 MG/DL (0.55-1.30) L Estimat Glomerular Filtration Rate > 60 mL/min (>60) Glucose Level 137 MG/DL (74-106) H Calcium Level 8.1 MG/DL (8.5-10.1) L Total Bilirubin 0.2 MG/DL (0.2-1.0) Aspartate Amino Transf (AST/SGOT) 30 U/L (15-37) Alanine Aminotransferase (ALT/SGPT) 43 U/L (12-78) Alkaline Phosphatase 55 U/L (46-116) Total Protein 6.5 G/DL (6.4-8.2) Albumin 2.1 G/DL (3.4-5.0) L Globulin 4.4 g/dL Albumin/Globulin Ratio 0.5 (1.0-2.7) L Vitamin D 25-Hydroxy Pending 25-Hydroxy Vitamin D2 Pending 25-Hydroxy Vitamin D3 Pending Thyroid Stimulating Hormone (TSH) 1.649 uiU/mL (0.358-3.740) Microbiology Date/Time Source Procedure Growth Status 01/02/19 23:00 Stool Clostridium difficile Toxin Assay - Final Complete Height (Feet): 5 Height (Inches): 5.00 Weight (Pounds): 127 Medications Current Medications Medications (Trade) Dose Ordered Sig/Cassidy Route PRN Reason Start Time Stop Time Status Last Admin Dose Admin Acetaminophen (Tylenol) 650 mg Q4H PRN GT Mild Pain/Temp > 100.5 01/03/19 14:00 02/02/19 13:59 01/03/19 13:56 Albuterol/ Ipratropium (Albuterol/ Ipratropium) 3 ml Q4HRT PRN HHN Shortness of Breath 01/02/19 20:45 01/07/19 20:44 Dextrose/ Electrolytes 1,000 ml @ 50 mls/hr Q20H IV 01/03/19 11:30 02/02/19 11:29 01/03/19 11:39 Heparin Sodium (Porcine) (Heparin 5000 units/ml) 5,000 units EVERY 12 HOURS SUBQ 01/02/19 21:00 02/01/19 20:59 01/02/19 21:36 Levetiracetam (Keppra) 1,000 mg Q12HR GT 01/03/19 21:00 02/02/19 08:59 Lorazepam (Ativan 2mg/ml 1ml) 2 mg Q2H PRN IV For Seizures 01/03/19 08:45 01/10/19 08:44 01/03/19 09:01 Pantoprazole (Protonix) 40 mg DAILY IVP 01/03/19 09:00 02/02/19 08:59 01/03/19 09:00 Piperacillin Sod/ Tazobactam Sod 3.375 gm/Sodium Chloride 110 ml @ 27.5 mls/hr Q8HR IVPB 01/02/19 22:00 01/09/19 21:59 01/03/19 14:59 Assessment/Plan Assessment/Plan: Hematology Consultation REQ MD: Klever Leung DOS: 01/03/19 RFC: Anemia eval HPI Patient is brought by EMS from a group home facility. Apparently has a fever and also seizures. Patient has a tracheostomy and is unable to communicate at this time. According to family member he was discharged from [facility] yesterday. When he left the hospital he still had a fever. 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 He's been treated with by PLEX and IVIG. Also it appears that he got rituximab. When he was admitted on December 26 he did have evidence of possible pneumonia at that time. This was treated with antibiotics. Because of uncontrolled seizures he had respiratory failure. This finally led to a tracheostomy. The patient also has a gastrostomy tube. 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 His mom says that these are persistent and never extinguished. The patient is on Keppra and valproic acid. Allergies: No Known Allergies (Unverified , 01/02/19) Limited by: medical condition Past Medical History: see triage record, old chart reviewed Social History: Denies: smoking, alcohol use, drug use - pain medicine Social History Narrative from SNF Reviewed Nursing Documentation: PMH: Agreed; PSxH: Agreed Hx Cardiac Problems: No - ENCEPHALOPY Hx Seizures: Yes Review of systems: limited PE Vital Signs Date Time Temp Pulse Resp B/P (MAP) Pulse Ox O2 Delivery O2 Flow Rate FiO2 01/02/19 14:15 101.1 151 22 120/73 100 Ambu-Bag General Appearance: moderate distress, Chronically Ill Head: normocephalic, atraumatic Eyes: bilateral eye normal inspection, bilateral eye PERRL, bilateral eye abnormal EOM - constant stare ENT: dry mucus membranes, other - constant motor movement of lips and mough Neck: supple, tracheotomy Respiratory: respiratory distress, rales, rhonchi Cardiovascular: no edema, no JVD, tachycardia, 2+ radial (R) GI: Gastrostomy tube, decreased bowel sounds : other - Uncircumcised Musculoskeletal: other - Atrophy Neurologic: other - Not responding to exter with fasciculations of lips Psychiatric: other - Stupor Laboratory Tests Test 01/03/19 04:00 White Blood Count 11.8 K/UL (4.8-10.8) H Red Blood Count 3.11 M/UL (4.70-6.10) L Hemoglobin 9.3 G/DL (14.2-18.0) L Hematocrit 28.2 % (42.0-52.0) L Mean Corpuscular Volume 91 FL (80-99) Mean Corpuscular Hemoglobin 30.0 PG (27.0-31.0) Mean Corpuscular Hemoglobin Concent 33.0 G/DL (32.0-36.0) Red Cell Distribution Width 13.0 % (11.6-14.8) Platelet Count 120 K/UL (150-450) L Mean Platelet Volume 5.9 FL (6.5-10.1) L Neutrophils (%) (Auto) 79.7 % (45.0-75.0) H Lymphocytes (%) (Auto) 10.7 % (20.0-45.0) L Monocytes (%) (Auto) 9.2 % (1.0-10.0) Eosinophils (%) (Auto) 0.0 % (0.0-3.0) Basophils (%) (Auto) 0.4 % (0.0-2.0) Erythrocyte Sedimentation Rate 100 MM/HR (0-15) H Sodium Level 135 MMOL/L (136-145) L Potassium Level 3.0 MMOL/L (3.5-5.1) L Chloride Level 101 MMOL/L (98-107) Carbon Dioxide Level 27 MMOL/L (21-32) Anion Gap 7 mmol/L (5-15) Blood Urea Nitrogen 4 mg/dL (7-18) L Creatinine 0.4 MG/DL (0.55-1.30) L Estimat Glomerular Filtration Rate > 60 mL/min (>60) Glucose Level 137 MG/DL (74-106) H Calcium Level 8.1 MG/DL (8.5-10.1) L Total Bilirubin 0.2 MG/DL (0.2-1.0) Aspartate Amino Transf (AST/SGOT) 30 U/L (15-37) Alanine Aminotransferase (ALT/SGPT) 43 U/L (12-78) Alkaline Phosphatase 55 U/L (46-116) Total Protein 6.5 G/DL (6.4-8.2) Albumin 2.1 G/DL (3.4-5.0) L Globulin 4.4 g/dL Albumin/Globulin Ratio 0.5 (1.0-2.7) L Vitamin D 25-Hydroxy Pending 25-Hydroxy Vitamin D2 Pending 25-Hydroxy Vitamin D3 Pending Thyroid Stimulating Hormone (TSH) 1.649 uiU/mL (0.358-3.740) Current Medications Medications (Trade) Dose Ordered Sig/Cassidy Route PRN Reason Start Time Stop Time Status Last Admin Dose Admin Acetaminophen (Tylenol) 650 mg Q4H PRN GT Mild Pain/Temp > 100.5 01/03/19 14:00 02/02/19 13:59 01/03/19 13:56 Albuterol/ Ipratropium (Albuterol/ Ipratropium) 3 ml Q4HRT PRN HHN Shortness of Breath 01/02/19 20:45 01/07/19 20:44 Dextrose/ Electrolytes 1,000 ml @ 50 mls/hr Q20H IV 01/03/19 11:30 02/02/19 11:29 01/03/19 11:39 Heparin Sodium (Porcine) (Heparin 5000 units/ml) 5,000 units EVERY 12 HOURS SUBQ 01/02/19 21:00 02/01/19 20:59 01/02/19 21:36 Levetiracetam (Keppra) 1,000 mg Q12HR GT 01/03/19 21:00 02/02/19 08:59 Lorazepam (Ativan 2mg/ml 1ml) 2 mg Q2H PRN IV For Seizures 01/03/19 08:45 01/10/19 08:44 01/03/19 09:01 Pantoprazole (Protonix) 40 mg DAILY IVP 01/03/19 09:00 02/02/19 08:59 01/03/19 09:00 Piperacillin Sod/ Tazobactam Sod 3.375 gm/Sodium Chloride 110 ml @ 27.5 mls/hr Q8HR IVPB 01/02/19 22:00 01/09/19 21:59 01/03/19 14:59 Assessment and Recs: # Anemia of chronic disease (or of iron deficiency) due to underlying chronic medical issues, multifactorial --> Anemia workup has been ordered, rule out gi bleed --> No evidence of hemolysis is noted, peripheral smear has been reviewed. --> Hgb goal >7. Transfuse prn. --> Epogen or iron at this time is not particularly indicated --> Medications have been reviewed --> evaluate with Gi team prn --> transfuse if hgb is < 7 (will trend CBC daily) --> low threshold for gi evaluation in case has occult + # Thrombocytopenia - potential causes multifactorial, evaluate liver and viral etiologies to begin, also could be related to underlying medications patient has received. --> Hep panel and HIV ordered --> US abd to evaluate for cirrhosis and hsm ordered --> Peripheral smear ordered to evaluate for blasts /schistocytes --> abx and other meds have been reviewed --> ok for ppx if plt >50k w/ either heparin or lovenox --> Transfuse if Plt < 20k and fever, or if Plt < 10k without fever # Leukocytosis with cxr showing left infitrate, cmp is unremarkable, initial lactate elevated --> peripheral smear has been ordered # Sepsis r/o undelrying infection --> on abx, as per id # Pneumonia # Anti-NMDA rec # h/o seizures. --> Valproic acid level undetected. No tonic/clonic seizure activity and Keppra had been given --> per neuro # Respiratory with vent --> as per Antony santos The timing of this note does not necessarily reflect the time of the patient was seen. Greatly appreciate consultation! Alok Thompson MD January 03, 2019 17:14
[2019-01-03] MEDS ORDERED: D5 1/2NS 1000ml IV ONE (18:05)
[2019-01-03] MEDS ORDERED: Tubing IV Secondary IV ONE (18:05)
[2019-01-03] MEDS ORDERED: Sterile Water Irrig 1000ml IRRIG ONE (18:05)
--- NOTE | 2019-01-03 18:11 | NUR ---
NURSE NOTES: Pt turned and repositioned. No more seizure activity since this am. Temp is 97.9. No acute distress. Will continue to monitor.
--- NOTE | 2019-01-03 18:15 | History and Physical Report ---
DATE OF ADMISSION: 01/02/2019 NOTE: POOR AUDIO REASON FOR ADMISSION: This is a first admission to [facility] of this 23-year-old patient because of fever, tachycardia, and sepsis. HISTORY OF PRESENT ILLNESS: The patient was discharged 2 days ago from [facility] to [facility]. Short period after his arrival, he developed again high fever to 101.8, tachycardia to the heart rate of 140. He was transferred to [facility] ER where he was found to be in septic shock and he came and was admitted. PAST MEDICAL HISTORY: 1. While here he was bizarre behavior the patient in the right function. 2. His last seizure was 1 year ago, he was admitted to [facility] and underwent extensive examination that included MRI of the brain, CT scan of the brain and face, CT scan of the chest, multiple lab tests . 3. 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 ALLERGIES: No known drug allergies. MEDICATIONS: The patient has been on antibiotic upon arrival but recommend the patient . FAMILY HISTORY: Both parents are alive and in good health. SOCIAL HISTORY: Lives single. for many years prior to the debility. The patient did not smoke, drink, or use illicit drugs. REVIEW OF SYSTEMS: The patient is unable to give any information regarding his state of health. PHYSICAL EXAMINATION: VITAL SIGNS: The patient is 108/50, pulse was . HEART: PMI was in the fourth left intercostal space in midclavicular line. Normal S1 and normal S2. There was no murmur. No arrhythmia. No S3. No S4. No pericardial rub. ABDOMEN: Soft and nontender without organomegaly. There were no masses palpable. Normal bowel sounds without bruits. There was no guarding. No rebound tenderness. No ascites. No hernia. No CVA tenderness. Liver span was 8 cm, mostly nontender. EXTREMITIES: No cyanosis, no clubbing, and no edema. Extremities were warm. NEUROLOGICAL: Reflexes in biceps, triceps, and brachioradialis were difficult to obtain. Patellar retinaculum was difficult to obtain. Plantars were in extension bilaterally. . Cerebellar function, there was no tremor. No nystagmus. No extrapyramidal rigidity. Sensory exam to pinprick, cotton touch, and position grossly normal. Motor strength was 5/5 against resistance in upper and lower extremities in proximal and distal muscles. LABORATORY AND DIAGNOSTIC DATA: His chest x-ray showed no active disease. His hemoglobin was , hematocrit with MCV of 91, WBC , and platelets 141,000. His BUN and creatinine, urine drug screen was negative. 2+. IMPRESSION AND PLAN: Despite of his low WBC, the patient has fever and tachycardia. the patient was . pulmonary consulted. to assist in the management of this case. Klever Leung M.D. DR: CRISTA JOB#: [id number] CC:
--- NOTE | 2019-01-03 18:59 | NUR ---
HAND-OFF: Report given to Guy THORPE.
--- NOTE | 2019-01-03 19:00 | NUR ---
NURSE NOTES: Report received from Mychal RN. Pt awake, obtunded, eyes open without tracking. Pt on patient monitor, SR. PT on trache to vent shiley #8, AC 16, TV 450, 40% fiO2, PEEP 5. GTF with Jevity 1.2 running at 55 cc/hr. Rectal tube noted and intact draining liquid, brown stool to gravity. Cooling blanket on monitor mode, rectal temp 98.8F. Magdaleno noted and intact draining clear, yellow urine to gravity. LAC 20G and RFA 20G noted with D5NS w/20mEq KCL @ 50 cc/hr. Seizures precautions/padded side rails in place and other safety measures in place with bed locked and in lowest position, side rails x3 up and bed alarm on. Skin assessment noted.
--- NOTE | 2019-01-03 20:00 | NUR ---
NURSE NOTES: Dr. Palomares at bedside assessing patient. Urine culture and Sputum cultures were ordered and sent to lab. Vancomycin and Cefepime added to abx regiment. The urine and sputum cx were obtain and sent before starting the new regiment of abx. Patient was turned and repositioned. Added Optifoam to bony prominences. Rectal tube remains intact and minimal leak observed. Patient continues to be having fever, cooling blanket is turned on and light sheet is applied. Temperature is 101.0
--- NOTE | 2019-01-03 20:30 | Consultation ---
Consult Note Consult Note # [id number] Marcell Palomares MD January 03, 2019 20:30
[2019-01-03 20:37] LABS: % IRON SATURATION 15 % (15-50); IRON 31 ug/dL (50-175); TOTAL IRON BINDING CAPACITY 201 ug/dL (250-450)
[2019-01-03 20:40] LABS: FERRITIN 378 NG/ML (8-388); LACTATE DEHYDROGENASE 194 U/L (81-234)
[2019-01-03 20:51] LABS: INR 1.2 (0.9-1.1)
[2019-01-03] MEDS: levETIRAcetam 500mg/5ml Liquid GT SCH (21:00)
--- NOTE | 2019-01-03 21:16 | Consultation ---
History of Present Illness General Date patient seen: January 03, 2019 Chief Complaint: Seizure with hx of NMDA Encephalitis Referring physician: Dr. Roxanne Hardy Present Illness HPI Chon Roth is a 23 year old young man with a complicated history of prescription opioid, illicit drug use, and acquired seizure disorder. 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 Events leading to his initial admission included his family noticing that patient stopped remembering where regular items in home were, or to wash himself. They ultimately noted that he became non verbal and brought him to the hospital where he then had tonic clonic seizure, ultimately respiratory failure and was intubated on 11/26/18. His LP was performed and showed 1:320 positive anti-NMDA receptor antibodies. He was started on PLEX. He received a total of 5 day course with no clinical improvement. A starting dose of IVIG on 12/05/18 was also done for the patient. Apparently during this time, there was some clinical improvement in patient's wakefulness and eye tracking. He was subsequently diagnosed with PNA bilaterally and treated with broad specturm antibiotics. He was discharged/ transferred to [facility] with recs to continue Rituximab 1000mg IV x 2 induction therapy and then every 6 months thereafter for immunosuppression. Tracheostomy placed 12/15/18, PEG 12/20/18, transferred to LT[facility] on or around and [place] [facility] [place] for fever and also seizures. Allergies: Coded Allergies: No Known Allergies (Unverified , 01/02/19) Medication History Scheduled Ascorbic Acid* (Ascorbic Acid*), 500 MG ORAL DAILY, (Reported) Lansoprazole* (Lansoprazole*), 15 MG GT DAILY, (Reported) Levocarnitine (levOCARNitine), 330 MG GT EVERY 8 HOURS, (Reported) Multivitamin Liquid* (Multi-Delyn*), 5 ML GT DAILY, (Reported) Psyllium (Metamucil Powder), 1 PKT GT BID, (Reported) Sennosides (Senna), 8.6 MG GT DAILY, (Reported) Valproic Acid (Valproic Acid), 250 MG GT EVERY 8 HOURS, (Reported) Zinc Sulfate (Zinc Sulfate), 220 MG ORAL DAILY, (Reported) Scheduled PRN Acetaminophen* (Acetaminophen 325MG Tablet*), 650 MG GT Q6H PRN for Pain Scale ( 3-5), (Reported) Albuterol Sulfate* (Albuterol Sulfate Hhn*), 3 ML INH Q4H PRN for Shortness of Breath, (Reported) Miscellaneous Medications cloBAZam (cloBAZam), 10 MG GT, (Reported) Patient History Healthcare decision maker Sonia Roth Resuscitation status Full Code Advanced Directive on File No Physical Exam General Appearance: lethargic - INtubated, triple flexion in LEs to noxious stimuli and decerebrate posturing in UEs. , confused, other Lines, tubes and drains: endotracheal tube HEENT: normocephalic, atraumatic, anicteric, mucous membranes moist Neck: normal alignment Extremities: normal inspection, non-pitting Skin Exam: normal pigmentation, warm/dry Neurologic: no pronator, abnormal CN, motor weakness, disoriented, unresponsiveness, aphasia, other Musculoskeletal: atrophy - General atrophy Last 24 Hour Vital Signs Date Time Temp Pulse Resp B/P (MAP) Pulse Ox O2 Delivery O2 Flow Rate FiO2 01/03/19 21:08 87 17 35 01/03/19 19:00 92 20 129/82 (98) 100 01/03/19 18:54 74 18 35 01/03/19 18:00 76 17 137/102 (114) 100 01/03/19 17:00 71 16 121/91 (101) 100 01/03/19 16:52 93 21 35 01/03/19 16:00 88 01/03/19 16:00 98.9 83 16 123/90 (101) 100 01/03/19 16:00 Mechanical Ventilator 01/03/19 16:00 40 01/03/19 15:00 107 16 124/83 (97) 100 01/03/19 15:00 107 20 35 01/03/19 14:26 99.7 01/03/19 14:00 99 17 138/99 (112) 100 01/03/19 13:15 112 20 35 01/03/19 13:00 110 16 128/99 (109) 100 01/03/19 12:00 Mechanical Ventilator 01/03/19 12:00 96 01/03/19 12:00 100.0 78 16 128/83 (98) 100 01/03/19 12:00 40 01/03/19 11:00 100 18 123/81 (95) 100 01/03/19 10:40 133 22 35 01/03/19 10:00 103 17 118/77 (91) 100 01/03/19 09:02 142 24 35 01/03/19 09:00 106 17 117/75 (89) 100 01/03/19 08:00 40 01/03/19 08:00 99.2 129 28 123/81 (95) 100 01/03/19 08:00 Mechanical Ventilator 01/03/19 08:00 96 01/03/19 07:00 102 21 35 01/03/19 07:00 93 22 127/90 (102) 100 01/03/19 06:00 94 20 146/96 (113) 100 01/03/19 05:24 107 27 35 01/03/19 05:00 115 20 134/95 (108) 100 01/03/19 04:00 123 01/03/19 04:00 40 01/03/19 04:00 100.8 115 23 137/89 (105) 100 01/03/19 04:00 Mechanical Ventilator 01/03/19 03:00 108 20 125/86 (99) 100 01/03/19 02:59 115 24 35 01/03/19 02:00 111 22 134/92 (106) 100 01/03/19 01:09 102 20 35 01/03/19 01:00 109 21 117/87 (97) 100 01/03/19 00:00 40 01/03/19 00:00 100.4 100 20 118/83 (95) 100 01/03/19 00:00 112 01/03/19 00:00 Mechanical Ventilator 01/02/19 23:00 122 22 126/76 (93) 100 01/02/19 22:57 135 23 40 01/02/19 22:00 131 26 108/44 (65) 100 01/02/19 21:28 114 20 40 Intake and Output 01/02/19 01/03/19 19:00 07:00 Intake Total 2150 ml 2590.0 ml Output Total 650 ml 2350 ml Balance 1500 ml 240.0 ml Intake Free Water 100 ml IV Total 2150 ml 2310.0 ml Tube Feeding 180 ml Output Urine Total 650 ml 2350 ml # Bowel Movements 1 Laboratory Tests Test 01/03/19 04:00 01/03/19 19:35 White Blood Count 11.8 K/UL (4.8-10.8) H Red Blood Count 3.11 M/UL (4.70-6.10) L Hemoglobin 9.3 G/DL (14.2-18.0) L Hematocrit 28.2 % (42.0-52.0) L Mean Corpuscular Volume 91 FL (80-99) Mean Corpuscular Hemoglobin 30.0 PG (27.0-31.0) Mean Corpuscular Hemoglobin Concent 33.0 G/DL (32.0-36.0) Red Cell Distribution Width 13.0 % (11.6-14.8) Platelet Count 120 K/UL (150-450) L Mean Platelet Volume 5.9 FL (6.5-10.1) L Neutrophils (%) (Auto) 79.7 % (45.0-75.0) H Lymphocytes (%) (Auto) 10.7 % (20.0-45.0) L Monocytes (%) (Auto) 9.2 % (1.0-10.0) Eosinophils (%) (Auto) 0.0 % (0.0-3.0) Basophils (%) (Auto) 0.4 % (0.0-2.0) Differential Total Cells Counted 100 Neutrophils % (Manual) 46 % (45-75) Lymphocytes % (Manual) 22 % (20-45) Monocytes % (Manual) 9 % (1-10) Eosinophils % (Manual) 0 % (0-3) Basophils % (Manual) 0 % (0-2) Band Neutrophils 23 % (0-8) H Platelet Estimate Decreased L Platelet Morphology Normal Hypochromasia 1+ Anisocytosis 1+ Erythrocyte Sedimentation Rate 100 MM/HR (0-15) H Reticulocyte Count 2.7 % (0.0-2.0) H Sodium Level 135 MMOL/L (136-145) L Potassium Level 3.0 MMOL/L (3.5-5.1) L Chloride Level 101 MMOL/L (98-107) Carbon Dioxide Level 27 MMOL/L (21-32) Anion Gap 7 mmol/L (5-15) Blood Urea Nitrogen 4 mg/dL (7-18) L Creatinine 0.4 MG/DL (0.55-1.30) L Estimat Glomerular Filtration Rate > 60 mL/min (>60) Glucose Level 137 MG/DL (74-106) H Calcium Level 8.1 MG/DL (8.5-10.1) L Total Bilirubin 0.2 MG/DL (0.2-1.0) Aspartate Amino Transf (AST/SGOT) 30 U/L (15-37) Alanine Aminotransferase (ALT/SGPT) 43 U/L (12-78) Alkaline Phosphatase 55 U/L (46-116) Total Protein 6.5 G/DL (6.4-8.2) Albumin 2.1 G/DL (3.4-5.0) L Globulin 4.4 g/dL Albumin/Globulin Ratio 0.5 (1.0-2.7) L Vitamin D 25-Hydroxy Pending 25-Hydroxy Vitamin D2 Pending 25-Hydroxy Vitamin D3 Pending Thyroid Stimulating Hormone (TSH) 1.649 uiU/mL (0.358-3.740) HIV (1&2) Antibody Rapid Negative (NEGATIVE) Sickle Cell Screen Pending Prothrombin Time 12.2 SEC (9.30-11.50) H Prothromb Time International Ratio 1.2 (0.9-1.1) H Fibrinogen 386 mg/dL (200-400) Iron Level 31 ug/dL (50-175) L Total Iron Binding Capacity 201 ug/dL (250-450) L Percent Iron Saturation 15 % (15-50) Unsaturated Iron Binding 170 ug/dL (112-346) Ferritin 378 NG/ML (8-388) Lactate Dehydrogenase 194 U/L (81-234) Vitamin B12 Level 1336 PG/ML (193-986) H Hepatitis A IgM Antibody Pending Hepatitis B Surface Antigen Pending Hepatitis B Core IgM Antibody Pending Hepatitis C Antibody Pending Microbiology Date/Time Source Procedure Growth Status 01/02/19 23:00 Stool Clostridium difficile Toxin Assay - Final Complete Height (Feet): 5 Height (Inches): 5.00 Weight (Pounds): 127 Medications Current Medications Medications (Trade) Dose Ordered Sig/Cassidy Route PRN Reason Start Time Stop Time Status Last Admin Dose Admin Acetaminophen (Tylenol) 650 mg Q4H PRN GT Mild Pain/Temp > 100.5 01/03/19 14:00 02/02/19 13:59 01/03/19 13:56 Albuterol/ Ipratropium (Albuterol/ Ipratropium) 3 ml Q4HRT PRN HHN Shortness of Breath 01/02/19 20:45 01/07/19 20:44 Cefepime HCl 1 gm/ Dextrose 55 ml @ 110 mls/hr EVERY 12 HOURS IVPB 01/03/19 23:00 01/10/19 22:59 Dextrose/ Electrolytes 1,000 ml @ 50 mls/hr Q20H IV 01/03/19 11:30 02/02/19 11:29 01/03/19 11:39 Heparin Sodium (Porcine) (Heparin 5000 units/ml) 5,000 units EVERY 12 HOURS SUBQ 01/02/19 21:00 02/01/19 20:59 01/02/19 21:36 Levetiracetam (Keppra) 1,000 mg Q12HR GT 01/03/19 21:00 02/02/19 08:59 Lorazepam (Ativan 2mg/ml 1ml) 2 mg Q2H PRN IV For Seizures 01/03/19 08:45 01/10/19 08:44 01/03/19 09:01 Pantoprazole (Protonix) 40 mg DAILY IVP 01/03/19 09:00 02/02/19 08:59 01/03/19 09:00 Piperacillin Sod/ Tazobactam Sod 3.375 gm/Sodium Chloride 110 ml @ 27.5 mls/hr Q8HR IVPB 01/02/19 22:00 01/09/19 21:59 01/03/19 14:59 Vancomycin HCl (Vanco rx to dose) 1 ea DAILY PRN MISC Per rx protocol 01/03/19 20:30 02/02/19 20:29 Vancomycin HCl 750 mg/Sodium Chloride 275 ml @ 183.333 mls/hr Q8H IVPB 01/04/19 06:00 01/09/19 05:59 Vancomycin HCl/ Dextrose 275 ml @ 183.333 mls/hr ONCE IVPB 01/03/19 22:00 01/04/19 00:00 Assessment/Plan Problem List: (1) Status post tracheostomy ICD Codes: Z93.0 - Tracheostomy status SNOMED: 22114542, 361511704 (2) Seizure disorder ICD Codes: G40.909 - Epilepsy, unspecified, not intractable, without status epilepticus SNOMED: 458567055 (3) Anti-NMDA receptor encephalitis ICD Codes: G04.81 - Other encephalitis and encephalomyelitis SNOMED: 81831831 (4) Chronic respiratory failure ICD Codes: J96.10 - Chronic respiratory failure, unspecified whether with hypoxia or hypercapnia SNOMED: 99125130 (5) Pneumonia ICD Codes: J18.9 - Pneumonia, unspecified organism SNOMED: 155617706 Qualifiers: Qualified Codes: J18.1 - Lobar pneumonia, unspecified organism (6) S/P percutaneous endoscopic gastrostomy (PEG) tube placement ICD Codes: Z93.1 - Gastrostomy status SNOMED: 343317133 Assessment/Plan: EEG ordered LP ordered Test for : Glucose Protein Culture/Sensitivity Oligoclonal Bands Coccoides Anti NMDA antibody HSV Maintain normothermia Commence Broad spectrum Abx Na 135-145 Maintain normoglycemia IV Keppra 1g BID Check Keppra serum level 1-2mg Ativan for seizure activity PRN Record/ report all seizure activity. Q hr Neuro checks . Advisable to commence Rituxan DREA for induction phase x 2 weeks . Nell Bragg N.P. January 03, 2019 21:16
[2019-01-03] MEDS: Cefepime HCl 1 GM in D5W 55 ML IVPB SCH (21:30)
[2019-01-03] MEDS ORDERED: Vancomycin 1.25gm Premix IVPB SCH (22:00)
--- NOTE | 2019-01-03 22:00 | NUR ---
NURSE NOTES: Spinal tap with CSF fluid collection studies has been ordered for tomorrow by SENIOR ANALYST . CT head w/o contrast was ordered. Patient repositioned and pillows adjusted. Scheduled medications given. Oral care performed and passive range of motion provided for patient. Heel remains off loaded. Patients temperature now is 99.8F.
--- NOTE | 2019-01-03 23:00 | NUR ---
NURSE NOTES: Patient back from CT, no issues along the way. Patient kept clean and dry. Patient is making good urine output, >100ml/hr. Patient continues to have fasciculations of the his face and mouth since start of shift. Mother states he has been having this twitching since he has been hospitalized at previous hospital prior to this admission. No seizure activity since start of shift. Previous RN endorsed to me that patient experienced a generalized tonic clonic seizure in the morning lasting for about 40 seconds.
[2019-01-04] VITALS (27 sets, daily range): BP systolic 90–151; BP diastolic 17–121
--- NOTE | 2019-01-04 | NUR ---
NURSE NOTES: Patient repositioned and provided oral care. TF ongoing. No residual noted. Patient remains on cooling blanket.
--- NOTE | 2019-01-04 02:00 | NUR ---
NURSE NOTES: Patient repositioned and given oral care, vitals has remained stable. Patient is afebrile at this moment. No seizure activity observed so far.
--- NOTE | 2019-01-04 04:00 | NUR ---
NURSE NOTES: Patient was cleaned and repositioned. Lab draws was done and sent. No form of acute distress at this time. Remains afebrile at this time. No seizure activity observed at this time. Patient continues to have facial twitching and intensifies when patient is moved and repositioned. Patient has not opened his eyes throughout the shift, yesterday patients eyes were open throughout some of the night.
[2019-01-04 04:56] LABS: EOSINOPHILS % (AUTO) 0.2 % (0.0-3.0); HEMATOCRIT 30.7 % (42.0-52.0); HEMOGLOBIN 10.4 G/DL (14.2-18.0); LYMPHOCYTES % (AUTO) 16.1 % (20.0-45.0); MEAN CORPUSCULAR VOLUME 89 FL (80-99); MONOCYTES % (AUTO) 10.8 % (1.0-10.0); PLATELET COUNT 131 K/UL (150-450); RED BLOOD COUNT 3.43 M/UL (4.70-6.10); RED CELL DISTRIBUTION WIDTH 12.8 % (11.6-14.8); WHITE BLOOD COUNT 8.6 K/UL (4.8-10.8)
[2019-01-04 05:26] LABS: ALANINE AMINOTRANSFERASE 41 U/L (12-78); ALBUMIN 2.3 G/DL (3.4-5.0); ALBUMIN/GLOBULIN RATIO 0.5 (1.0-2.7); ALKALINE PHOSPHATASE 65 U/L (46-116); ANION GAP 6 mmol/L (5-15); ASPARTATE AMINO TRANSFERASE 25 U/L (15-37); BILIRUBIN,TOTAL 0.2 MG/DL (0.2-1.0); BLOOD UREA NITROGEN 3 mg/dL (7-18); CALCIUM 8.2 MG/DL (8.5-10.1); CARBON DIOXIDE 30 MMOL/L (21-32); CHLORIDE 96 MMOL/L (98-107); CREATININE 0.4 MG/DL (0.55-1.30); POTASSIUM 2.9 MMOL/L (3.5-5.1); SODIUM 132 MMOL/L (136-145)
--- NOTE | 2019-01-04 05:30 | Consultation ---
DATE OF CONSULTATION: 01/03/2019 INFECTIOUS DISEASE CONSULTATION CONSULTING PHYSICIAN: Marcell Palomares M.D. REFERRING PHYSICIAN: Babita Haryd M.D. REASON FOR CONSULTATION: Evaluation of the patient for fever, possible sepsis, and antibiotic management. HISTORY OF PRESENT ILLNESS: The patient is a 23-year-old unfortunate male with past medical history significant for NMDA encephalitis, who was admitted to this medical center due to fever and onset of a seizure. The patient has been admitted to intensive care unit and started on IV antibiotics. Infectious Disease consultation has been requested for further evaluation of the patient and antibiotic management. The patient's past medical history is complicated, that was obtained from the history of the patient from back in December of 2018. PAST MEDICAL HISTORY: 1. History of recent seizure x1 year. 2. History of ventilator-dependent respiratory failure, status post trach. 3. History of anti-NMDA receptor antibody encephalitis (status post LP that showed a titer of 1:320). 4. Status post PLEX without improvement. 5. Status post IVIG, CT of chest, abdomen, and pelvis did not show any evidence of cancer. MEDICATIONS: IV Zosyn. ALLERGIES: No known drug allergies. SOCIAL HISTORY: The patient lives in a fci. FAMILY HISTORY: Not contributing. REVIEW OF SYSTEMS: Unobtainable. LABORATORY AND DIAGNOSTIC DATA: White blood cells 11.8, hemoglobin 9.3, and platelets 120. UA unremarkable. Hepatitis panel is pending. HIV is negative. C. diff toxin negative. Blood culture is growing Gram-positive cocci in clusters. Chest x-ray, no acute findings. Venous duplex unremarkable. ASSESSMENT: 1. The patient is a 23-year-old male with multiple medical problems as above, who has positive blood culture, Gram-positive cocci. 2. Fever. 3. Ventilator associated pneumonia. 4. Anemia. 5. Thrombocytopenia. 6. Seizure disorder. PLAN: 1. Change Zosyn (due to threshold of the seizure) to cefepime and add IV vancomycin. 2. Repeat blood culture. 3. Sputum culture. 4. Urine culture. 5. Monitor CBC and BMP. 6. Based on the patient's clinical course and labs, we will do further recommendations. 7. 2D echo. Marcell Palomares M.D. DR: YOUNG JOB#: [id number] CC:
[2019-01-04] MEDS: Piperacillin/Tazobactam 3.375 GM in NS 110 ML IVPB SCH (05:31)
[2019-01-04] MEDS: Vancomycin 750mg/NS 275ml IVPB SCH ×4 (05:31→15:06)
--- NOTE | 2019-01-04 06:00 | NUR ---
NURSE NOTES: Patient repositioned, temperature now is 99.5F. Patient is calm and relaxed. NAD at this time. Maintenance fluids are ongoing, antibiotics infusing.
--- NOTE | 2019-01-04 07:00 | NUR ---
HAND-OFF: Report given to Nicol Horta RN. Patient remains stable at this time. Current temperature is 98.0 F. BP stable, bedside report given.
--- NOTE | 2019-01-04 07:25 | NUR ---
NURSE NOTES: Report received from Guy THORPE. Pt sleeping, obtunded, eyes closed without tracking. Pt on night monitor, SR. Pt on trache to vent shiley #8, AC 16, TV 450, 40% fiO2, PEEP 5. GTF clamped, feeding on hold, kept NPO for abdominal ultrasound today. Rectal tube noted and intact draining liquid, brown stool to gravity. Cooling blanket on monitor mode, rectal temp 98. Magdaleno noted and intact draining clear, yellow urine to gravity. LAC 20G and RFA 20G noted with D5NS + 20K @ 50 cc/hr. Safety measures in place with bed locked and in lowest position, side rails x3 up and bed alarm on. Will continue to monitor and continue plan of care.
[2019-01-04] MEDS: Heparin 5000 units/ml inj SUBQ SCH ×2 (08:07→20:58)
[2019-01-04] MEDS: levETIRAcetam 500mg/5ml Liquid GT SCH ×2 (08:17→20:15)
[2019-01-04] MEDS: Pantoprazole Inj IVP SCH (08:17)
[2019-01-04] MEDS: Cefepime HCl 1 GM in D5W 55 ML IVPB SCH ×3 (08:17→21:00)
--- NOTE | 2019-01-04 09:38 | Diagnostic Imaging Report ---
Indication: Headache Technique: Contiguous 5 mm thick transaxial imaging of the head obtained in a Siemens Sensation [address] scanner. Soft tissue and bone windows generated. Automatic Exposure Control was utilized. Total Dose length Product (DLP): 1358.[address] Dose Index Volume (CTDIvol): 70.38 mGy Comparison: none Findings: The size and configuration of the cortical sulci, basal cisterns, and ventricles are within normal limits for age. There is no mass effect, midline shift, or edema identified. There is no evidence of acute hemorrhage or abnormal intra-axial or extra-axial fluid collections. The bones and soft tissues are unremarkable. Impression: No mass effect, edema or acute bleed. [facility] has communicated the preliminary results to the Emergency Department. Their findings are largely concordant with this report. The CT scanner at [facility] is accredited by the [employer] and the scans are performed using dose optimization techniques as appropriate to a performed exam including Automatic Exposure control.
--- NOTE | 2019-01-04 09:55 | NUR ---
NURSE NOTES: US tech here to do abdominal and scrotal ultrasound. VSS. No acute distress. Will continue to monitor.
--- NOTE | 2019-01-04 10:15 | Pulmonolgy Critical Care Note ---
Critical Care - Asmt/Plan Problems: (1) Sepsis (2) Pneumonia (3) Anti-NMDA receptor encephalitis (4) Chronic respiratory failure (5) S/P percutaneous endoscopic gastrostomy (PEG) tube placement Respiratory: monitor respiratory rate, adjust FIO2, CXR Cardiac: continue to monitor HR/BP Renal: F/U I&O, keep IV fluid Infectious Disease: check cultures, continue antibiotics Gastrointestinal: continue feedings/current rate Endocrine: monitor blood sugar Hematologic: transfuse if hgb<8.5 Neurologic: PRN Ativan, PRN Morphine, keep patient comfortable Prophylaxis: Heparin Notes Reviewed: oil rigger, cardio, renal Discussed with: nurses, consultants, 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 - Objective Last 24 Hour Vital Signs Date Time Temp Pulse Resp B/P (MAP) Pulse Ox O2 Delivery O2 Flow Rate FiO2 01/04/19 10:00 113 17 147/108 (121) 100 01/04/19 09:00 102 18 139/89 (106) 100 01/04/19 08:00 99.1 72 18 135/89 (104) 100 01/04/19 08:00 72 01/04/19 08:00 40 01/04/19 08:00 Mechanical Ventilator 01/04/19 07:00 94 16 130/94 (106) 19 01/04/19 06:46 102 17 35 01/04/19 06:00 81 16 131/96 (108) 100 01/04/19 05:14 72 17 35 01/04/19 05:00 68 18 127/90 (102) 100 01/04/19 04:00 98.1 93 18 122/89 (100) 100 01/04/19 04:00 Mechanical Ventilator 01/04/19 04:00 40 01/04/19 04:00 97 01/04/19 03:22 88 17 35 01/04/19 03:00 93 18 126/90 (102) 100 01/04/19 02:00 91 21 151/99 (116) 100 01/04/19 01:45 77 19 35 01/04/19 01:00 93 17 140/94 (109) 100 01/04/19 00:00 99.4 68 18 147/104 (118) 100 01/04/19 00:00 Mechanical Ventilator 01/04/19 00:00 78 01/04/19 00:00 40 01/03/19 23:25 67 16 35 01/03/19 23:00 74 17 125/84 (98) 100 01/03/19 22:00 83 17 120/85 (97) 100 01/03/19 21:08 87 17 35 01/03/19 21:00 104 19 128/90 (103) 100 01/03/19 20:00 Mechanical Ventilator 01/03/19 20:00 40 01/03/19 20:00 101.0 110 19 129/82 (98) 100 01/03/19 20:00 111 01/03/19 19:00 92 20 129/82 (98) 100 01/03/19 18:54 74 18 35 01/03/19 18:00 76 17 137/102 (114) 100 01/03/19 17:00 71 16 121/91 (101) 100 01/03/19 16:52 93 21 35 01/03/19 16:00 88 01/03/19 16:00 98.9 83 16 123/90 (101) 100 01/03/19 16:00 Mechanical Ventilator 01/03/19 16:00 40 01/03/19 15:00 107 16 124/83 (97) 100 01/03/19 15:00 107 20 35 01/03/19 14:26 99.7 01/03/19 14:00 99 17 138/99 (112) 100 01/03/19 13:15 112 20 35 01/03/19 13:00 110 16 128/99 (109) 100 01/03/19 12:00 Mechanical Ventilator 01/03/19 12:00 96 01/03/19 12:00 100.0 78 16 128/83 (98) 100 01/03/19 12:00 40 01/03/19 11:00 100 18 123/81 (95) 100 01/03/19 10:40 133 22 35 Condition: critical HEENT: atraumatic Heart: HR/BP stable Abdomen: soft, non-tender Extremities: no C/C/E Micro: Microbiology Date/Time Source Procedure Growth Status 01/02/19 14:30 Blood Blood Culture - Preliminary Staphylococcus Species Resulted 01/02/19 14:15 Blood Blood Culture - Preliminary Staphylococcus Species Resulted 01/02/19 15:20 Nasal Nares MRSA Culture - Final NO METHICILLIN RESISTANT STAPH AUREUS... Complete 01/02/19 23:00 Stool Clostridium difficile Toxin Assay - Final Complete 01/02/19 15:20 Rectum VRE Culture - Final NO VANCOMYCIN RESISTANT ENTEROCOCCUS ... Resulted 01/02/19 15:20 Rectum Pending Resulted Critical Care - Subjective ROS Limited/Unobtainable: Yes Condition: critical EKG Rhythm: Sinus Rhythm FI02: 40 Vent Support Breath Rate: 16 Vent Support Mode: AC Vent Tidal Volume: 450 Sputum Amount: Scant PEEP: 5.0 PIP: 16 Tube Feeding Amount: 55 I&O: Intake and Output 01/03/19 01/04/19 19:00 07:00 Intake Total 1170.0 ml 2330.0 ml Output Total 1340 ml 2325 ml Balance -170.0 ml 5.0 ml Intake Free Water 300 ml 100 ml IV Total 485.0 ml 1570.0 ml Tube Feeding 385 ml 660 ml Output Urine Total 1340 ml 2325 ml Labs: Laboratory Tests Test 01/03/19 19:35 01/04/19 04:20 01/04/19 08:50 Sickle Cell Screen Pending Prothrombin Time 12.2 SEC (9.30-11.50) H Prothromb Time International Ratio 1.2 (0.9-1.1) H Fibrinogen 386 mg/dL (200-400) Iron Level 31 ug/dL (50-175) L Total Iron Binding Capacity 201 ug/dL (250-450) L Percent Iron Saturation 15 % (15-50) Unsaturated Iron Binding 170 ug/dL (112-346) Ferritin 378 NG/ML (8-388) Lactate Dehydrogenase 194 U/L (81-234) Vitamin B12 Level 1336 PG/ML (193-986) H Levetiracetam (Keppra) Level Pending Hepatitis A IgM Antibody Negative (Negative) Hepatitis B Surface Antigen Negative (Negative) Hepatitis B Core IgM Antibody Negative (Negative) Hepatitis C Antibody 0.1 s/co ratio (0.0-0.9) White Blood Count 8.6 K/UL (4.8-10.8) Red Blood Count 3.43 M/UL (4.70-6.10) L Hemoglobin 10.4 G/DL (14.2-18.0) L Hematocrit 30.7 % (42.0-52.0) L Mean Corpuscular Volume 89 FL (80-99) Mean Corpuscular Hemoglobin 30.4 PG (27.0-31.0) Mean Corpuscular Hemoglobin Concent 34.0 G/DL (32.0-36.0) Red Cell Distribution Width 12.8 % (11.6-14.8) Platelet Count 131 K/UL (150-450) L Mean Platelet Volume 6.2 FL (6.5-10.1) L Neutrophils (%) (Auto) 72.0 % (45.0-75.0) Lymphocytes (%) (Auto) 16.1 % (20.0-45.0) L Monocytes (%) (Auto) 10.8 % (1.0-10.0) H Eosinophils (%) (Auto) 0.2 % (0.0-3.0) Basophils (%) (Auto) 1.0 % (0.0-2.0) Erythrocyte Sedimentation Rate 90 MM/HR (0-15) H Sodium Level 132 MMOL/L (136-145) L Potassium Level 2.9 MMOL/L (3.5-5.1) L Chloride Level 96 MMOL/L (98-107) L Carbon Dioxide Level 30 MMOL/L (21-32) Anion Gap 6 mmol/L (5-15) Blood Urea Nitrogen 3 mg/dL (7-18) L Creatinine 0.4 MG/DL (0.55-1.30) L Estimat Glomerular Filtration Rate > 60 mL/min (>60) Glucose Level 144 MG/DL (74-106) H Calcium Level 8.2 MG/DL (8.5-10.1) L Phosphorus Level 3.0 MG/DL (2.5-4.9) Magnesium Level 1.7 MG/DL (1.8-2.4) L Total Bilirubin 0.2 MG/DL (0.2-1.0) Aspartate Amino Transf (AST/SGOT) 25 U/L (15-37) Alanine Aminotransferase (ALT/SGPT) 41 U/L (12-78) Alkaline Phosphatase 65 U/L (46-116) C-Reactive Protein, Quantitative 10.2 mg/dL (0.00-0.90) H Total Protein 7.1 G/DL (6.4-8.2) Albumin 2.3 G/DL (3.4-5.0) L Globulin 4.8 g/dL Albumin/Globulin Ratio 0.5 (1.0-2.7) L Arterial Blood pH 7.458 (7.350-7.450) Arterial Blood Partial Pressure CO2 42.1 mmHg (35.0-45.0) Arterial Blood Partial Pressure O2 312.8 mmHg (75.0-100.0) H Arterial Blood HCO3 29.1 mmol/L (22.0-26.0) H Arterial Blood Oxygen Saturation 99.2 % (95-100) Arterial Blood Base Excess 4.8 (-2-2) H Jurgen Test Positive Babita Hardy MD January 04, 2019 10:15
--- NOTE | 2019-01-04 10:16 | NUR ---
NURSE NOTES: Discussed with IR regarding lumbar puncture. IR said they cant do the procedure because pt has to be face down for about an hour. Called Devin Kelly NP and left message, awaiting call back. Will continue to monitor.
--- NOTE | 2019-01-04 11:36 | Diagnostic Imaging Report ---
Indication: Dyspnea Comparison: 01/02/2019 A single view chest radiograph was obtained. Findings: Cardiomediastinal appearance is within normal limits for age. The lungs are clear. Tracheostomy is noted. Pulmonary vascularity is appropriate. The diaphragmatic contour is smooth and costophrenic angles are sharp. No pleural effusions are identified. The bones are unremarkable. Impression: No acute findings. No interval change
[2019-01-04] MEDS ORDERED: Potassium Chloride 40 MEQ in Sodium Chloride 550 ML IVPB ONE (12:00)
--- NOTE | 2019-01-04 12:00 | Diagnostic Imaging Report ---
Indication:Scrotal pain Technique: Real time grayscale and duplex Doppler imaging of the scrotum performed. Comparison: None Findings: The size, contour, and echogenicitiy of the testis appear normal bilaterally. There is no testicular mass or evidence of torsion. There is good doppler evidence of blood flow within both testes. Epididimi are unremarkable. Left testis 4.1 x 1.6 x 2.9 cm. Right testis 4.6 x 1.4 x 2.8 cm. Impression: Negative scrotal ultrasound
--- NOTE | 2019-01-04 12:03 | Diagnostic Imaging Report ---
Indication: Abdominal pain. Gastrostomy. Technique: Grayscale and duplex Doppler imaging of the abdomen performed. Comparison: None Findings: The liver is somewhat prominent but otherwise unremarkable. No definite gallstones are identified. There is a small wall adherent nodules likely small polyps within the gallbladder lumen. Sonographic Douglas's sign is equivocal. There is a moderate degree of bowel gas and gastrostomy obscuring the pancreas and aorta and portions of the kidneys. Both kidneys appear unremarkable. The spleen is normal in size. There is no biliary ductal dilatation identified. Doppler evaluation of the main portal vein shows patency. There is no ascites. No hydronephrosis seen. Impression: No acute findings. Borderline hepatomegaly. Gallbladder polyps. Limited study due to bowel gas.
--- NOTE | 2019-01-04 12:39 | NUR ---
NURSE NOTES: Pt turned and repositioned. No acute distress. Will continue to monitor.
--- NOTE | 2019-01-04 14:43 | Cardiology Report ---
APPROVED REPORT EKG Measurement Heart [id number] [place] [id number] Sinus tachycardia Otherwise normal ECG
--- NOTE | 2019-01-04 15:06 | General Progress Note ---
Assessment/Plan Assessment/Plan: Assessment and Recs: # Anemia of chronic disease due to underlying chronic medical issues, multifactorial --> Anemia workup has been reviewed, no dory noted --> No evidence of hemolysis is noted, peripheral smear has been reviewed. --> Hgb goal >7. Transfuse prn. --> Epogen or iron at this time is not particularly indicated --> Medications have been reviewed --> evaluate with Gi team prn --> transfuse if hgb is < 7 (will trend CBC daily) --> ferritin is 378, tibc is 201 # Thrombocytopenia - potential causes multifactorial, evaluate liver and viral etiologies to begin, also could be related to underlying medications patient has received. --> Hep panel and HIV is negative --> US abd shows borderline splenomegaly --> Peripheral smear ordered to evaluate for blasts /schistocytes and none noted --> abx and other meds have been reviewed --> ok for ppx if plt >50k w/ either heparin or lovenox --> Trend 130k-->121k # Leukocytosis with cxr showing left infitrate, cmp is unremarkable, initial lactate elevated --> peripheral smear reviewed --> wbc trend 12-->9 # Sepsis r/o undelrying infection --> on abx, as per id # Pneumonia on abx # Anti-NMDA rec # h/o seizures. --> Valproic acid level undetected. No tonic/clonic seizure activity and Keppra had been given --> per neuro # Respiratory with vent --> as per Antony santos # Dysphagia s/p peg The timing of this note does not necessarily reflect the time of the patient was seen. Greatly appreciate consultation! Subjective Constitutional: Denies: no symptoms, chills, diaphoresis, fever, malaise, weakness, other HEENT: Denies: no symptoms, eye pain, blurred vision, tearing, double vision, ear pain, ear discharge, nose pain, nose congestion, throat pain, throat swelling, mouth pain, mouth swelling, other Respiratory: Denies: no symptoms, cough, orthopnea, shortness of breath, SOB with excertion, SOB at rest, sputum, stridor, wheezing, other Gastrointestinal/Abdominal: Denies: no symptoms, abdomen distended, abdominal pain, black stools, tarry stools, blood in stool, constipated, diarrhea, difficulty swallowing, nausea, poor appetite, poor fluid intake, rectal bleeding , vomiting, other Genitourinary: Denies: no symptoms, burning, discharge, frequency, flank pain, hematuria, incontinence, pain, urgency, other Endocrine: Denies: no symptoms, excessive sweating, flushing, intolerance to cold, intolerance to heat, increased hunger, increased thirst, increased urine, unexplained weight gain, unexplained weight loss, other Hematologic/Lymphatic: Denies: no symptoms, anemia, easy bleeding, easy bruising, other Allergies: Coded Allergies: No Known Allergies (Unverified , 01/02/19) Subjective 01/04: remains in the icu, no f/c, no night sweats, remains on abx Objective Last 24 Hour Vital Signs Date Time Temp Pulse Resp B/P (MAP) Pulse Ox O2 Delivery O2 Flow Rate FiO2 01/04/19 14:32 91 26 35 01/04/19 12:40 102 28 35 01/04/19 11:00 95 17 130/99 (109) 100 01/04/19 10:43 97 18 35 01/04/19 10:00 113 17 147/108 (121) 100 01/04/19 09:00 102 18 139/89 (106) 100 01/04/19 08:45 87 20 35 01/04/19 08:00 99.1 72 18 135/89 (104) 100 01/04/19 08:00 72 01/04/19 08:00 40 01/04/19 08:00 Mechanical Ventilator 01/04/19 07:00 94 16 130/94 (106) 19 01/04/19 06:46 102 17 35 01/04/19 06:00 81 16 131/96 (108) 100 01/04/19 05:14 72 17 35 01/04/19 05:00 68 18 127/90 (102) 100 01/04/19 04:00 98.1 93 18 122/89 (100) 100 01/04/19 04:00 Mechanical Ventilator 01/04/19 04:00 40 01/04/19 04:00 97 01/04/19 03:22 88 17 35 01/04/19 03:00 93 18 126/90 (102) 100 01/04/19 02:00 91 21 151/99 (116) 100 01/04/19 01:45 77 19 35 01/04/19 01:00 93 17 140/94 (109) 100 01/04/19 00:00 99.4 68 18 147/104 (118) 100 01/04/19 00:00 Mechanical Ventilator 01/04/19 00:00 78 01/04/19 00:00 40 01/03/19 23:25 67 16 35 01/03/19 23:00 74 17 125/84 (98) 100 01/03/19 22:00 83 17 120/85 (97) 100 01/03/19 21:08 87 17 35 01/03/19 21:00 104 19 128/90 (103) 100 01/03/19 20:00 Mechanical Ventilator 01/03/19 20:00 40 01/03/19 20:00 101.0 110 19 129/82 (98) 100 01/03/19 20:00 111 01/03/19 19:00 92 20 129/82 (98) 100 01/03/19 18:54 74 18 35 01/03/19 18:00 76 17 137/102 (114) 100 01/03/19 17:00 71 16 121/91 (101) 100 01/03/19 16:52 93 21 35 01/03/19 16:00 88 01/03/19 16:00 98.9 83 16 123/90 (101) 100 01/03/19 16:00 Mechanical Ventilator 01/03/19 16:00 40 Intake and Output 01/03/19 01/04/19 18:59 06:59 Intake Total 1095.0 ml 2027.5 ml Output Total 1320 ml 2320 ml Balance -225.0 ml -292.5 ml Intake Free Water 300 ml 100 ml IV Total 435.0 ml 1267.5 ml Tube Feeding 360 ml 660 ml Output Urine Total 1320 ml 2320 ml Laboratory Tests 01/03/19 19:35: Sickle Cell Screen [Pending], Prothrombin Time 12.2H, Prothromb Time International Ratio 1.2H, Fibrinogen 386, Iron Level 31L, Total Iron Binding Capacity 201L, Percent Iron Saturation 15, Unsaturated Iron Binding 170, Ferritin 378, Lactate Dehydrogenase 194, Vitamin B12 Level 1336H, Levetiracetam (Keppra) Level [Pending], Hepatitis A IgM Antibody Negative, Hepatitis B Surface Antigen Negative, Hepatitis B Core IgM Antibody Negative, Hepatitis C Antibody 0.1 01/04/19 04:20: White Blood Count 8.6, Red Blood Count 3.43L, Hemoglobin 10.4L, Hematocrit 30.7L , Mean Corpuscular Volume 89, Mean Corpuscular Hemoglobin 30.4, Mean Corpuscular Hemoglobin Concent 34.0, Red Cell Distribution Width 12.8, Platelet Count 131L, Mean Platelet Volume 6.2L, Neutrophils (%) (Auto) 72.0, Lymphocytes (%) (Auto) 16.1L, Monocytes (%) (Auto) 10.8H, Eosinophils (%) (Auto) 0.2, Basophils (%) (Auto) 1.0, Erythrocyte Sedimentation Rate 90H, Sodium Level 132L , Potassium Level 2.9L, Chloride Level 96L, Carbon Dioxide Level 30, Anion Gap 6 , Blood Urea Nitrogen 3L, Creatinine 0.4L, Estimat Glomerular Filtration Rate > 60, Glucose Level 144H, Calcium Level 8.2L, Phosphorus Level 3.0, Magnesium Level 1.7L, Total Bilirubin 0.2, Aspartate Amino Transf (AST/SGOT) 25, Alanine Aminotransferase (ALT/SGPT) 41, Alkaline Phosphatase 65, C-Reactive Protein, Quantitative 10.2H, Total Protein 7.1, Albumin 2.3L, Globulin 4.8, Albumin/ Globulin Ratio 0.5L 01/04/19 08:50: Arterial Blood pH 7.458H, Arterial Blood Partial Pressure CO2 42.1, Arterial Blood Partial Pressure O2 312.8H, Arterial Blood HCO3 29.1H, Arterial Blood Oxygen Saturation 99.2, Arterial Blood Base Excess 4.8H, Jurgen Test Positive Height (Feet): 5 Height (Inches): 5.00 Weight (Pounds): 126 Objective General Appearance: moderate distress, Chronically Ill Head: normocephalic, atraumatic Eyes: bilateral eye normal inspection, bilateral eye PERRL, bilateral eye abnormal EOM - constant stare ENT: dry mucus membranes, other - constant motor movement of lips and mough Neck: supple, tracheotomy Respiratory: respiratory distress, rales, rhonchi Cardiovascular: no edema, no JVD, tachycardia, 2+ radial (R) GI: Gastrostomy tube, decreased bowel sounds : other - Uncircumcised Musculoskeletal: other - Atrophy Neurologic: other - Not responding to exter with fasciculations of lips Psychiatric: other - Stupor Alok Thompson MD January 04, 2019 15:06
--- NOTE | 2019-01-04 15:37 | NUR ---
NURSE NOTES: EEG completed. Mom at bedside. No acute distress. Pt more responsive, eyes reactive to light. Will continue to monitor.
--- NOTE | 2019-01-04 16:41 | NUR ---
VISUAL COMMUNICATIONS INSTRUCTORACADEMIC AFFAIRS DIRECTOR SI:SEPSIS . PNA VS: BP 134/104, P 106, T 98.9, RR 28, SpO2 100 on VENT FiO2 40 RBC 3.43, H&H 10.4/30.7, NA 132, K 2.9, BUN 3, CR 0.4 IS:POTASSIUM CHLORIDE 570ml IVPB MAGNESIUM SULFATE 100ml VANCOMYCIN 275ml KEPPRA 1,000mg D5/ELECTROLYTES x1L IV ZOSYN 110ml IV HEPARIN SUBUQ ICU STATUS
[2019-01-04] MEDS ORDERED: NS 275ml ONE (16:46)
--- NOTE | 2019-01-04 17:38 | Infectious Diseases Prog Note ---
Assessment/Plan Assessment/Plan ASSESSMENT: The patient is a 23-year-old male with blood culture, Gram-positive cocci. Fever, improving Ventilator associated pneumonia. Anemia. Thrombocytopenia. Seizure disorder History of recent seizure x1 year. 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 PLAN: Cont cefepime and add IV Vancomycin d# 2 Repeat blood culture Sputum culture. Urine culture. Monitor CBC and BMP. Subjective Allergies: Coded Allergies: No Known Allergies (Unverified , 01/02/19) Subjective afebrile today on vent Objective Vital Signs Last 24 Hour Vital Signs Date Time Temp Pulse Resp B/P (MAP) Pulse Ox O2 Delivery O2 Flow Rate FiO2 01/04/19 17:00 110 19 129/98 (108) 98 01/04/19 16:53 105 24 35 01/04/19 16:00 98.9 106 18 132/103 (113) 100 01/04/19 16:00 107 01/04/19 16:00 40 01/04/19 16:00 Mechanical Ventilator 01/04/19 15:00 103 21 134/104 (114) 100 01/04/19 14:32 91 26 35 01/04/19 14:00 99 21 128/89 (102) 99 01/04/19 13:00 101 18 131/99 (110) 100 01/04/19 12:40 102 28 35 01/04/19 12:00 89 01/04/19 12:00 40 01/04/19 12:00 Mechanical Ventilator 01/04/19 12:00 97.9 94 18 134/95 (108) 100 01/04/19 11:00 95 17 130/99 (109) 100 01/04/19 10:43 97 18 35 01/04/19 10:00 113 17 147/108 (121) 100 01/04/19 09:00 102 18 139/89 (106) 100 01/04/19 08:45 87 20 35 01/04/19 08:00 99.1 72 18 135/89 (104) 100 01/04/19 08:00 72 01/04/19 08:00 40 01/04/19 08:00 Mechanical Ventilator 01/04/19 07:00 94 16 130/94 (106) 19 01/04/19 06:46 102 17 35 01/04/19 06:00 81 16 131/96 (108) 100 01/04/19 05:14 72 17 35 01/04/19 05:00 68 18 127/90 (102) 100 01/04/19 04:00 98.1 93 18 122/89 (100) 100 01/04/19 04:00 Mechanical Ventilator 01/04/19 04:00 40 01/04/19 04:00 97 01/04/19 03:22 88 17 35 01/04/19 03:00 93 18 126/90 (102) 100 01/04/19 02:00 91 21 151/99 (116) 100 01/04/19 01:45 77 19 35 01/04/19 01:00 93 17 140/94 (109) 100 01/04/19 00:00 99.4 68 18 147/104 (118) 100 01/04/19 00:00 Mechanical Ventilator 01/04/19 00:00 78 01/04/19 00:00 40 01/03/19 23:25 67 16 35 01/03/19 23:00 74 17 125/84 (98) 100 01/03/19 22:00 83 17 120/85 (97) 100 01/03/19 21:08 87 17 35 01/03/19 21:00 104 19 128/90 (103) 100 01/03/19 20:00 Mechanical Ventilator 01/03/19 20:00 40 01/03/19 20:00 101.0 110 19 129/82 (98) 100 01/03/19 20:00 111 01/03/19 19:00 92 20 129/82 (98) 100 01/03/19 18:54 74 18 35 01/03/19 18:00 76 17 137/102 (114) 100 Height (Feet): 5 Height (Inches): 5.00 Weight (Pounds): 126 HEENT: anicteric Respiratory/Chest: normal breath sounds Cardiovascular: regularly irregular Abdomen: soft, non tender Microbiology Date/Time Source Procedure Growth Status 01/02/19 14:30 Blood Blood Culture - Preliminary Staphylococcus Species Resulted 01/02/19 14:15 Blood Blood Culture - Preliminary Staphylococcus Species Resulted 01/02/19 15:20 Nasal Nares MRSA Culture - Final NO METHICILLIN RESISTANT STAPH AUREUS... Complete 01/02/19 23:00 Stool Clostridium difficile Toxin Assay - Final Complete 01/02/19 15:20 Rectum VRE Culture - Final NO VANCOMYCIN RESISTANT ENTEROCOCCUS ... Resulted 01/02/19 15:20 Rectum Pending Resulted Laboratory Tests Test 01/03/19 19:35 01/04/19 04:20 01/04/19 08:50 Sickle Cell Screen Negative (Negative) Prothrombin Time 12.2 SEC (9.30-11.50) H Prothromb Time International Ratio 1.2 (0.9-1.1) H Fibrinogen 386 mg/dL (200-400) Iron Level 31 ug/dL (50-175) L Total Iron Binding Capacity 201 ug/dL (250-450) L Percent Iron Saturation 15 % (15-50) Unsaturated Iron Binding 170 ug/dL (112-346) Ferritin 378 NG/ML (8-388) Lactate Dehydrogenase 194 U/L (81-234) Vitamin B12 Level 1336 PG/ML (193-986) H Levetiracetam (Keppra) Level Pending Hepatitis A IgM Antibody Negative (Negative) Hepatitis B Surface Antigen Negative (Negative) Hepatitis B Core IgM Antibody Negative (Negative) Hepatitis C Antibody 0.1 s/co ratio (0.0-0.9) White Blood Count 8.6 K/UL (4.8-10.8) Red Blood Count 3.43 M/UL (4.70-6.10) L Hemoglobin 10.4 G/DL (14.2-18.0) L Hematocrit 30.7 % (42.0-52.0) L Mean Corpuscular Volume 89 FL (80-99) Mean Corpuscular Hemoglobin 30.4 PG (27.0-31.0) Mean Corpuscular Hemoglobin Concent 34.0 G/DL (32.0-36.0) Red Cell Distribution Width 12.8 % (11.6-14.8) Platelet Count 131 K/UL (150-450) L Mean Platelet Volume 6.2 FL (6.5-10.1) L Neutrophils (%) (Auto) 72.0 % (45.0-75.0) Lymphocytes (%) (Auto) 16.1 % (20.0-45.0) L Monocytes (%) (Auto) 10.8 % (1.0-10.0) H Eosinophils (%) (Auto) 0.2 % (0.0-3.0) Basophils (%) (Auto) 1.0 % (0.0-2.0) Erythrocyte Sedimentation Rate 90 MM/HR (0-15) H Sodium Level 132 MMOL/L (136-145) L Potassium Level 2.9 MMOL/L (3.5-5.1) L Chloride Level 96 MMOL/L (98-107) L Carbon Dioxide Level 30 MMOL/L (21-32) Anion Gap 6 mmol/L (5-15) Blood Urea Nitrogen 3 mg/dL (7-18) L Creatinine 0.4 MG/DL (0.55-1.30) L Estimat Glomerular Filtration Rate > 60 mL/min (>60) Glucose Level 144 MG/DL (74-106) H Calcium Level 8.2 MG/DL (8.5-10.1) L Phosphorus Level 3.0 MG/DL (2.5-4.9) Magnesium Level 1.7 MG/DL (1.8-2.4) L Total Bilirubin 0.2 MG/DL (0.2-1.0) Aspartate Amino Transf (AST/SGOT) 25 U/L (15-37) Alanine Aminotransferase (ALT/SGPT) 41 U/L (12-78) Alkaline Phosphatase 65 U/L (46-116) C-Reactive Protein, Quantitative 10.2 mg/dL (0.00-0.90) H Total Protein 7.1 G/DL (6.4-8.2) Albumin 2.3 G/DL (3.4-5.0) L Globulin 4.8 g/dL Albumin/Globulin Ratio 0.5 (1.0-2.7) L Arterial Blood pH 7.458 (7.350-7.450) Arterial Blood Partial Pressure CO2 42.1 mmHg (35.0-45.0) Arterial Blood Partial Pressure O2 312.8 mmHg (75.0-100.0) H Arterial Blood HCO3 29.1 mmol/L (22.0-26.0) H Arterial Blood Oxygen Saturation 99.2 % (95-100) Arterial Blood Base Excess 4.8 (-2-2) H Jurgen Test Positive Current Medications Medications (Trade) Dose Ordered Sig/Cassidy Route PRN Reason Start Time Stop Time Status Last Admin Dose Admin Acetaminophen (Tylenol) 650 mg Q4H PRN GT Mild Pain/Temp > 100.5 01/03/19 14:00 02/02/19 13:59 01/03/19 13:56 Albuterol/ Ipratropium (Albuterol/ Ipratropium) 3 ml Q4HRT PRN HHN Shortness of Breath 01/02/19 20:45 01/07/19 20:44 Cefepime HCl 1 gm/ Dextrose 55 ml @ 110 mls/hr EVERY 12 HOURS IVPB 01/03/19 23:00 01/10/19 22:59 01/04/19 08:17 Dextrose/ Electrolytes 1,000 ml @ 50 mls/hr Q20H IV 01/03/19 11:30 02/02/19 11:29 01/04/19 05:31 Heparin Sodium (Porcine) (Heparin 5000 units/ml) 5,000 units EVERY 12 HOURS SUBQ 01/02/19 21:00 02/01/19 20:59 01/03/19 21:32 Levetiracetam (Keppra) 1,000 mg Q12HR GT 01/03/19 21:00 02/02/19 08:59 01/04/19 08:17 Lorazepam (Ativan 2mg/ml 1ml) 2 mg Q2H PRN IV For Seizures 01/03/19 08:45 01/10/19 08:44 01/03/19 09:01 Pantoprazole (Protonix) 40 mg DAILY IVP 01/03/19 09:00 02/02/19 08:59 01/04/19 08:17 Vancomycin HCl (Vanco rx to dose) 1 ea DAILY PRN MISC Per rx protocol 01/03/19 20:30 02/02/19 20:29 Vancomycin HCl 750 mg/Sodium Chloride 275 ml @ 183.333 mls/hr Q8H IVPB 01/04/19 06:00 01/09/19 05:59 01/04/19 15:06 Marcell Palomares MD January 04, 2019 17:38
--- NOTE | 2019-01-04 18:09 | NUR ---
NURSE NOTES: Dr Leung here to see pt. Updated him on pt status and what's been done today. Made MD aware that we can't do a lumbar puncture on him and he said that he doesnt need one since he's had one previously. No acute distress. Will continue to monitor.
--- NOTE | 2019-01-04 19:03 | NUR ---
RESPIRATORY NOTE: Received pt on AC 16, 450VT, 35%, PEEP +5. Pt is trach-dependent w/ a cuffed, Shiley 8 tube. Pt obtunded, responds to pain, eyes closed most of the time. B/S janett. rhonchi, sxn small amounts of thin, clear-white, frothy secretions. Vent plugged into red outlet, ambubag & spare trach kit at bedside. Pt resting comfortably, in no apparent distress at this time. Will continue to monitor pt.
--- NOTE | 2019-01-04 19:17 | NUR ---
HAND-OFF: Report given to Giovanny THORPE.
[2019-01-04] MEDS: LORazepam Inj 2mg/ml 1ml IV PRN ×3 (19:24→22:48)
--- NOTE | 2019-01-04 19:24 | NUR ---
NURSE NOTES: PATIENT GRAND TONIC SZ FOR 3 MINS THAT GIVEN ATIVAN 2MG BY IVP SLOWLY PRN ORDERED, WILL CONTINUE TO MONITOR, KEPT SZ PRECAUTION AND HOLD G TUBE FEEDING AT THIS TIME.
--- NOTE | 2019-01-04 19:40 | NUR ---
NURSE NOTES: PATIENT SZ STATUS, LETHARGIC, NON VERBAL, NO RESPONSE TO VERBAL OR TACTILE STIMULI AT THIS TIME, ON TRACH TO VENT AC 16/TV 450/FIO2 35%/PEEP 5, O2 SATURATION 100% NOTED, ABDOMEN SOFT, NON TENDER, RECTAL TUBE INTACT, BROWN LIQUID STOOL OUTED, G TUBE INTACT AND PATENT, HELD FEEDING DUE TO SZ STATUS, F/C INTACT AND PATENT YELLOW URINE OUTED, PERIPHERAL LINE TO RIGHT FA 20G AND RIGHT AC 20G, D5W NS W/ KCL 20MEQ AT 50ML/HR VIA PERIPHERAL LINE, KEPT SZ PRECAUTION, MADE LOWER BED POSITION, HOB 30 DEGREE, PROVIDED CALL LIGHT WITHIN REACH, WILL CONTINUE TO MONITOR.
--- NOTE | 2019-01-04 21:10 | NUR ---
NURSE NOTES: CALLED [facility] ARCHIT[employer] REGARDING CONTINUED SEIZURE, LEFT MESSAGE BY CHARGE NURSE.
--- NOTE | 2019-01-04 21:30 | NUR ---
NURSE NOTES: CALLED BACK FROM [facility]HE[employer] THAT RECEIVED NEW ORDER BY CHARGE NURSE.
[2019-01-04] MEDS ORDERED: LORazepam Inj 2mg/ml 1ml ONE (21:33)
[2019-01-04] MEDS ORDERED: LORazepam Inj 2mg/ml 1ml IV SCH (21:45)
--- NOTE | 2019-01-04 21:45 | NUR ---
NURSE NOTES: PATIENT HAD SZ CONTINUED THAT GIVEN EXTRA DOSE ATIVAN 2 MG IVP SLOWLY FOR SZ ORDERED.
[2019-01-04] MEDS: Phenytoin 1,000 MG in NS 275 ML IVPB SCH (22:23)
[2019-01-04] MEDS: Acetaminophen 650mg/20.3ml GT PRN (22:42)
[2019-01-04] MEDS: Vancomycin 1gm/D5W 275ml IVPB SCH ×2 (22:42)
--- NOTE | 2019-01-04 22:42 | NUR ---
NURSE NOTES: TEMP 102.3 NOTED THAT GIVEN TYLENOL 650MG VIA G TUBE, KEPT COOLING BLANKET AND WILL CONTINUE TO MONITOR.
--- NOTE | 2019-01-04 23:42 | Neurology Progress Note ---
Interim History Interim History ROS Limited/Unobtainable: Yes Complaints: Seizure Events: Continuous seizures this afternoon. Review of Systems All Systems: reviewed and negative except above Objective Physical Exam Last Vital Signs Date Time Temp Pulse Resp B/P (MAP) Pulse Ox O2 Delivery O2 Flow Rate FiO2 01/04/19 23:05 138 24 35 01/04/19 23:00 102.3 121/17 (51) 99 01/04/19 16:00 Mechanical Ventilator 01/02/19 18:45 55.0 Laboratory Tests Test 01/04/19 04:20 01/04/19 08:50 01/04/19 21:05 White Blood Count 8.6 K/UL (4.8-10.8) Red Blood Count 3.43 M/UL (4.70-6.10) L Hemoglobin 10.4 G/DL (14.2-18.0) L Hematocrit 30.7 % (42.0-52.0) L Mean Corpuscular Volume 89 FL (80-99) Mean Corpuscular Hemoglobin 30.4 PG (27.0-31.0) Mean Corpuscular Hemoglobin Concent 34.0 G/DL (32.0-36.0) Red Cell Distribution Width 12.8 % (11.6-14.8) Platelet Count 131 K/UL (150-450) L Mean Platelet Volume 6.2 FL (6.5-10.1) L Neutrophils (%) (Auto) 72.0 % (45.0-75.0) Lymphocytes (%) (Auto) 16.1 % (20.0-45.0) L Monocytes (%) (Auto) 10.8 % (1.0-10.0) H Eosinophils (%) (Auto) 0.2 % (0.0-3.0) Basophils (%) (Auto) 1.0 % (0.0-2.0) Erythrocyte Sedimentation Rate 90 MM/HR (0-15) H Sodium Level 132 MMOL/L (136-145) L Potassium Level 2.9 MMOL/L (3.5-5.1) L Chloride Level 96 MMOL/L (98-107) L Carbon Dioxide Level 30 MMOL/L (21-32) Anion Gap 6 mmol/L (5-15) Blood Urea Nitrogen 3 mg/dL (7-18) L Creatinine 0.4 MG/DL (0.55-1.30) L Estimat Glomerular Filtration Rate > 60 mL/min (>60) Glucose Level 144 MG/DL (74-106) H Calcium Level 8.2 MG/DL (8.5-10.1) L Phosphorus Level 3.0 MG/DL (2.5-4.9) Magnesium Level 1.7 MG/DL (1.8-2.4) L Total Bilirubin 0.2 MG/DL (0.2-1.0) Aspartate Amino Transf (AST/SGOT) 25 U/L (15-37) Alanine Aminotransferase (ALT/SGPT) 41 U/L (12-78) Alkaline Phosphatase 65 U/L (46-116) C-Reactive Protein, Quantitative 10.2 mg/dL (0.00-0.90) H Total Protein 7.1 G/DL (6.4-8.2) Albumin 2.3 G/DL (3.4-5.0) L Globulin 4.8 g/dL Albumin/Globulin Ratio 0.5 (1.0-2.7) L Arterial Blood pH 7.458 (7.350-7.450) Arterial Blood Partial Pressure CO2 42.1 mmHg (35.0-45.0) Arterial Blood Partial Pressure O2 312.8 mmHg (75.0-100.0) H Arterial Blood HCO3 29.1 mmol/L (22.0-26.0) H Arterial Blood Oxygen Saturation 99.2 % (95-100) Arterial Blood Base Excess 4.8 (-2-2) H Jurgen Test Positive Vancomycin Level Trough 6.4 ug/mL (5.0-12.0) Impression/Recommendations Recommendations EEG ordered LP ordered Test for : Glucose Protein Culture/Sensitivity Oligoclonal Bands Coccoides Anti NMDA antibody HSV Maintain normothermia Commence Broad spectrum Abx Na 135-145 Maintain normoglycemia 1g Phenytoin now and then BID to continue 1-2mg Ativan Q1-2 hrs PRN for seizure activity. IV Keppra 1g BID Check Keppra serum level Record/ report all seizure activity. Q hr Neuro checks . Advisable to commence Rituxan DREA for induction phase x 2 weeks . Nell Bragg N.P. January 04, 2019 23:42
[2019-01-05] VITALS (24 sets, daily range): BP systolic 86–117; BP diastolic 44–87
[2019-01-05] MEDS: LORazepam Inj 2mg/ml 1ml IV PRN
--- NOTE | 2019-01-05 | NUR ---
NURSE NOTES: PATIENT HAD TONIC SZ INTERMITTENT AT THIS TIME THAT GIVEN ATIVAN 2MG BY IVP SLOWLY PRN FOR SZ, WILL CONTINUE TO MONITOR.
--- NOTE | 2019-01-05 00:35 | NUR ---
NURSE NOTES: SEEN THE PATIENT BY LYNDA/LINDSEY THAT DISCUSSED WITH FAMILY MEMBERS.
--- NOTE | 2019-01-05 01:00 | NUR ---
NURSE NOTES: PATIENT CALM, SLEEPING, NO SZ NOTED AT THIS TIME, MADE CALM ENVIRONMENT.
--- NOTE | 2019-01-05 01:45 | Progress Note ---
DATE: 01/04/2019 SUBJECTIVE: The patient remained afebrile, hemodynamically stable with less tachycardia. He underwent EEG again today and yesterday. Neurological consult suggested to have a spinal tap that cannot be accomplished as the patient has to lie flat with his face down. PHYSICAL EXAMINATION: VITAL SIGNS: Blood pressure 129/98, his pulse is 110, respirations are 18, and temperature 98.9. HEENT: Eyes were normal. ENT, mucous membranes were moist and intact. NECK: Supple with no JVD without lymph nodes. Tracheostomy site is clean. LUNGS: Clear without rhonchi, rales, or wheezing. Secretions are small, thin, and whitish. HEART: Normal sounds with regular beats. There is tachycardia at rest. Sinus tachycardia on monitor. ABDOMEN: Soft and nontender with normal bowel sounds. Gastrostomy site is clean. EXTREMITIES: Warm without cyanosis, clubbing, or edema. The patient's facial expressions have changed. Previous day was very distressed, appeared peaceful today as compared to two days ago, could be associated with condition. LABORATORY DATA: His hemoglobin is 10.4, hematocrit 30.7 with MCV of 89, WBC of 8.6, and platelets is 131. His BUN and creatinine is 3 and 0.4 respectively. His sodium is 132, potassium 2.9, chloride 96, CO2 is 30. SGOT, SGPT, and alkaline phosphatase are normal. His CRP is 10.2. His albumin is 2.3 and total protein is 7.1. IMPRESSION: The patient has hypokalemia. He received potassium chloride IV today. In addition, the patient received normal saline because of his hyponatremia. CBC, BMP will be done in the a.m. We will wait for the result of the EEG to assess if the patient is rendered as severe encephalopathy. Klever Leung M.D. DR: NATHALIA JOB#: [id number] CC:
--- NOTE | 2019-01-05 03:00 | NUR ---
NURSE NOTES: PATIENT OPEN EYES, NO SZ NOTED, NO FEVER NOTED, TURNED COOLING BLANKET OFF STATUS.
[2019-01-05 05:08] LABS: BASOPHILS % (AUTO) 0.7 % (0.0-2.0); EOSINOPHILS % (AUTO) 0.2 % (0.0-3.0); HEMATOCRIT 30.4 % (42.0-52.0); HEMOGLOBIN 10.3 G/DL (14.2-18.0); LYMPHOCYTES % (AUTO) 17.2 % (20.0-45.0); MEAN CORPUSCULAR VOLUME 89 FL (80-99); MONOCYTES % (AUTO) 9.8 % (1.0-10.0); NEUTROPHILS % (AUTO) 72.2 % (45.0-75.0); PLATELET COUNT 180 K/UL (150-450); RED CELL DISTRIBUTION WIDTH 12.9 % (11.6-14.8); WHITE BLOOD COUNT 13.1 K/UL (4.8-10.8)
--- NOTE | 2019-01-05 05:10 | NUR ---
NURSE NOTES: MORNING CARE WAS DONE.
[2019-01-05 05:33] LABS: ALANINE AMINOTRANSFERASE 32 U/L (12-78); ALBUMIN 2.4 G/DL (3.4-5.0); ALBUMIN/GLOBULIN RATIO 0.5 (1.0-2.7); ALKALINE PHOSPHATASE 57 U/L (46-116); ANION GAP 7 mmol/L (5-15); ASPARTATE AMINO TRANSFERASE 19 U/L (15-37); BILIRUBIN,TOTAL 0.3 MG/DL (0.2-1.0); BLOOD UREA NITROGEN 3 mg/dL (7-18); CALCIUM 8.3 MG/DL (8.5-10.1); CARBON DIOXIDE 28 MMOL/L (21-32); CHLORIDE 96 MMOL/L (98-107); CREATININE 0.3 MG/DL (0.55-1.30); PHOSPHORUS 1.9 MG/DL (2.5-4.9); POTASSIUM 2.9 MMOL/L (3.5-5.1); SODIUM 131 MMOL/L (136-145)
[2019-01-05] MEDS: Vancomycin 1gm/D5W 275ml IVPB SCH ×4 (06:35→15:05)
--- NOTE | 2019-01-05 06:53 | NUR ---
NURSE NOTES: NO SZ OR ACUTE DISTRESS NOTED AT THIS TIME.
--- NOTE | 2019-01-05 06:55 | NUR ---
RESPIRATORY NOTE: Received pt on AC 16,450ml, 35%, PEEP +5. Pt is trach dependent wirh trach cuffed, Shiley 8.0, secured with trach tie and trach guard. Pt open eyes but not tracking, responds to stimuli. B/S janett. rhonchi, sxn small amounts of thick thin frothy white secretions without incidents. Alarms are set and audible, Vent is plugged into red outlet, ambubag at bedside. Pt in no apparent distress at this time. Will continue to monitor pt.
--- NOTE | 2019-01-05 07:14 | NUR ---
HAND-OFF: Report given to ILA HONG.
--- NOTE | 2019-01-05 08:31 | NUR ---
RADIOLOGY DEPT., CHEST X-RAY DONE.-P.DYE
--- NOTE | 2019-01-05 09:21 | NUR ---
HOUSING DEVELOPMENT SPECIALISTTIPPLE TENDER SI:HYPOKALEMIA . HYPONATREMIA . SEPSIS VS: BP 107/78, P 125, T 99.9, RR 25, SpO2 100 on VENT FiO2 35 WBC 13.1, RBC 3.40, H&H 10.3/30.4, Na 131, K 2.9, BUN 3, Cr 0.3 IS:VANCOMYCIN 275ml D5/ELECTROLYTES X1 IV KEPPRA 1,000mg ICU STATUS
--- NOTE | 2019-01-05 09:23 | Pulmonolgy Critical Care Note ---
Critical Care - Asmt/Plan Problems: (1) Sepsis (2) Pneumonia (3) Anti-NMDA receptor encephalitis (4) Chronic respiratory failure (5) S/P percutaneous endoscopic gastrostomy (PEG) tube placement Respiratory: monitor respiratory rate, adjust FIO2, CXR Cardiac: continue pressors, continue to monitor HR/BP Renal: F/U I&O, check electrolytes Infectious Disease: check cultures, continue antibiotics Gastrointestinal: continue feedings/current rate Endocrine: monitor blood sugar, check HgA1C Hematologic: transfuse if hgb<8.5 Neurologic: PRN Ativan, PRN Morphine, keep patient comfortable Prophylaxis: Protonix, Heparin Time Spent (Minutes): 40 Notes Reviewed: cardio Discussed with: nurses, consultants, caser upinsulation manager - Objective Last 24 Hour Vital Signs Date Time Temp Pulse Resp B/P (MAP) Pulse Ox O2 Delivery O2 Flow Rate FiO2 01/05/19 08:35 125 25 30 01/05/19 07:00 97 20 114/82 (93) 100 01/05/19 06:55 96 20 35 01/05/19 06:00 100 18 107/78 (88) 100 01/05/19 05:13 95 18 35 01/05/19 05:00 95 18 109/81 (90) 100 01/05/19 04:00 35 01/05/19 04:00 Mechanical Ventilator 01/05/19 04:00 97.0 87 16 112/80 (91) 100 01/05/19 03:09 92 21 35 01/05/19 03:01 82 01/05/19 03:00 83 20 112/82 (92) 100 01/05/19 02:00 99.9 96 21 115/85 (95) 100 01/05/19 01:25 104 25 35 01/05/19 01:00 113 21 117/85 (96) 100 01/05/19 00:00 100.9 135 23 117/87 (97) 100 01/05/19 00:00 35 01/05/19 00:00 Mechanical Ventilator 01/04/19 23:15 130 01/04/19 23:12 102.6 01/04/19 23:05 138 24 35 01/04/19 23:00 102.3 153 27 121/17 (51) 99 01/04/19 22:00 168 28 90/47 (61) 100 01/04/19 21:30 166 25 139/79 (99) 99 01/04/19 21:26 170 23 35 01/04/19 21:00 159 21 143/90 (107) 98 01/04/19 20:30 160 20 143/92 (109) 99 01/04/19 20:00 98.6 171 27 133/93 (106) 99 01/04/19 20:00 Mechanical Ventilator 01/04/19 20:00 35 01/04/19 19:30 121 21 109/55 (73) 100 01/04/19 19:19 127 01/04/19 19:01 90 24 35 01/04/19 19:00 100 16 151/121 (131) 100 01/04/19 18:00 83 18 134/88 (103) 100 01/04/19 17:00 110 19 129/98 (108) 98 01/04/19 16:53 105 24 35 01/04/19 16:00 98.9 106 18 132/103 (113) 100 01/04/19 16:00 107 01/04/19 16:00 40 01/04/19 16:00 Mechanical Ventilator 01/04/19 15:00 103 21 134/104 (114) 100 01/04/19 14:32 91 26 35 01/04/19 14:00 99 21 128/89 (102) 99 01/04/19 13:00 101 18 131/99 (110) 100 01/04/19 12:40 102 28 35 01/04/19 12:00 89 01/04/19 12:00 40 01/04/19 12:00 Mechanical Ventilator 01/04/19 12:00 97.9 94 18 134/95 (108) 100 01/04/19 11:00 95 17 130/99 (109) 100 01/04/19 10:43 97 18 35 01/04/19 10:00 113 17 147/108 (121) 100 Status: obtunded Condition: critical HEENT: atraumatic Neck: full ROM Lungs: clear Heart: HR/BP stable Abdomen: soft, non-tender, feeding tube Extremities: edema Micro: Microbiology Date/Time Source Procedure Growth Status 01/02/19 14:30 Blood Blood Culture - Final Staphylococcus Epidermidis Complete 01/02/19 14:15 Blood Blood Culture - Final Staphylococcus Epidermidis Complete 01/02/19 15:20 Nasal Nares MRSA Culture - Final NO METHICILLIN RESISTANT STAPH AUREUS... Complete 01/02/19 23:00 Stool Clostridium difficile Toxin Assay - Final Complete 01/02/19 15:20 Rectum VRE Culture - Final NO VANCOMYCIN RESISTANT ENTEROCOCCUS ... Complete 01/02/19 15:20 Rectum - Final NO CARBAPENEM-RESISTANT ENTEROBACTERI... Complete Critical Care - Subjective ROS Limited/Unobtainable: Yes Condition: critical EKG Rhythm: Sinus Rhythm FI02: 30 Vent Support Breath Rate: 16 Vent Support Mode: AC Vent Tidal Volume: 450 Sputum Amount: Small PEEP: 5.0 PIP: 13 Tube Feeding Amount: 55 I&O: Intake and Output 01/04/19 01/05/19 19:00 07:00 Intake Total 1100.33 ml 1605 ml Output Total 1475 ml 3390 ml Balance -374.67 ml -1785 ml IV Total 880.33 ml 1265 ml Tube Feeding 220 ml 240 ml Other 100 ml Output Urine Total 1475 ml 3190 ml Stool Total 200 ml Labs: Laboratory Tests Test 01/04/19 21:05 01/05/19 04:10 01/05/19 07:49 Vancomycin Level Trough 6.4 ug/mL (5.0-12.0) White Blood Count 13.1 K/UL (4.8-10.8) #H Red Blood Count 3.40 M/UL (4.70-6.10) L Hemoglobin 10.3 G/DL (14.2-18.0) L Hematocrit 30.4 % (42.0-52.0) L Mean Corpuscular Volume 89 FL (80-99) Mean Corpuscular Hemoglobin 30.3 PG (27.0-31.0) Mean Corpuscular Hemoglobin Concent 33.9 G/DL (32.0-36.0) Red Cell Distribution Width 12.9 % (11.6-14.8) Platelet Count 180 K/UL (150-450) Mean Platelet Volume 5.7 FL (6.5-10.1) L Neutrophils (%) (Auto) 72.2 % (45.0-75.0) Lymphocytes (%) (Auto) 17.2 % (20.0-45.0) L Monocytes (%) (Auto) 9.8 % (1.0-10.0) Eosinophils (%) (Auto) 0.2 % (0.0-3.0) Basophils (%) (Auto) 0.7 % (0.0-2.0) Sodium Level 131 MMOL/L (136-145) L Potassium Level 2.9 MMOL/L (3.5-5.1) L Chloride Level 96 MMOL/L (98-107) L Carbon Dioxide Level 28 MMOL/L (21-32) Anion Gap 7 mmol/L (5-15) Blood Urea Nitrogen 3 mg/dL (7-18) L Creatinine 0.3 MG/DL (0.55-1.30) L Estimat Glomerular Filtration Rate > 60 mL/min (>60) Glucose Level 138 MG/DL (74-106) H Calcium Level 8.3 MG/DL (8.5-10.1) L Phosphorus Level 1.9 MG/DL (2.5-4.9) L Magnesium Level 1.7 MG/DL (1.8-2.4) L Total Bilirubin 0.3 MG/DL (0.2-1.0) Aspartate Amino Transf (AST/SGOT) 19 U/L (15-37) Alanine Aminotransferase (ALT/SGPT) 32 U/L (12-78) Alkaline Phosphatase 57 U/L (46-116) Total Protein 7.0 G/DL (6.4-8.2) Albumin 2.4 G/DL (3.4-5.0) L Globulin 4.6 g/dL Albumin/Globulin Ratio 0.5 (1.0-2.7) L Arterial Blood pH 7.513 (7.350-7.450) Arterial Blood Partial Pressure CO2 34.0 mmHg (35.0-45.0) L Arterial Blood Partial Pressure O2 181.6 mmHg (75.0-100.0) H Arterial Blood HCO3 26.7 mmol/L (22.0-26.0) H Arterial Blood Oxygen Saturation 98.9 % (95-100) Arterial Blood Base Excess 3.9 (-2-2) H Jurgen Test Positive Babita Hardy MD January 05, 2019 09:23
--- NOTE | 2019-01-05 09:30 | NUR ---
NURSE NOTES: Patient is calm and resting in bed with no distress noted, he remains with no fever or seizure activity noted.
[2019-01-05] MEDS: Pantoprazole Inj IVP SCH (10:05)
[2019-01-05] MEDS: levETIRAcetam 500mg/5ml Liquid GT SCH ×2 (10:07→20:57)
[2019-01-05] MEDS: Phenytoin 1,000 MG in NS 275 ML IVPB SCH ×2 (10:10→20:58)
[2019-01-05] MEDS: Cefepime HCl 1 GM in D5W 55 ML IVPB SCH ×2 (10:10→20:58)
[2019-01-05] MEDS: Heparin 5000 units/ml inj SUBQ SCH ×2 (10:13→20:59)
--- NOTE | 2019-01-05 11:43 | Diagnostic Imaging Report ---
Indication: Dyspnea Technique: One view of the chest Comparison: 01/04/2019 Findings: Lungs and pleural spaces are clear. The heart size is normal. There is a tracheostomy again demonstrated. No significant interim change Impression: No acute process
--- NOTE | 2019-01-05 11:45 | NUR ---
NURSE NOTES: family handed patient information of previous hospital admissions,
--- NOTE | 2019-01-05 13:30 | NUR ---
NURSE NOTES: Dr. Hardy notified of ABG results, no changed to be made at this time, FIo2 titrated to 30%.
--- NOTE | 2019-01-05 14:30 | NUR ---
NURSE NOTES: Dr. Hardy gave telephone orders to have Potassium Phosphate 20MM, 2G of magnesium Sulfate and incresed the fluids to D5NS with 20KCL at 75ml/hr. will place orders.
[2019-01-05] MEDS ORDERED: Potassium Phosphate 20 MM in NS 275 ML IV SCH (16:00)
--- NOTE | 2019-01-05 16:10 | General Progress Note ---
Assessment/Plan Assessment/Plan: Assessment and Recs: # Anemia of chronic disease due to underlying chronic medical issues, multifactorial --> Anemia workup has been reviewed, no dory noted --> No evidence of hemolysis is noted, peripheral smear has been reviewed. --> Hgb goal >7. Transfuse prn. --> Epogen or iron at this time is not particularly indicated --> Medications have been reviewed --> evaluate with Gi team prn --> transfuse if hgb is < 7 (will trend CBC daily) --> ferritin is 378, tibc is 201 =? hgb trend 10.4-->10.3 # Thrombocytopenia - potential causes multifactorial, evaluate liver and viral etiologies to begin, also could be related to underlying medications patient has received. --> Hep panel and HIV is negative --> US abd shows borderline splenomegaly --> Peripheral smear ordered to evaluate for blasts /schistocytes and none noted --> abx and other meds have been reviewed --> ok for ppx if plt >50k w/ either heparin or lovenox --> Trend 130k-->121k # Leukocytosis with cxr showing left infitrate, cmp is unremarkable, initial lactate elevated --> peripheral smear reviewed --> wbc trend 12-->9 # Sepsis r/o undelrying infection --> on abx, as per id # Pneumonia on abx # Anti-NMDA rec # h/o seizures. --> Valproic acid level undetected. No tonic/clonic seizure activity and Keppra had been given --> per neuro # Respiratory with vent --> as per Antony santos # Dysphagia s/p peg The timing of this note does not necessarily reflect the time of the patient was seen. Greatly appreciate consultation! Subjective Constitutional: Denies: no symptoms, chills, diaphoresis, fever, malaise, weakness, other HEENT: Denies: no symptoms, eye pain, blurred vision, tearing, double vision, ear pain, ear discharge, nose pain, nose congestion, throat pain, throat swelling, mouth pain, mouth swelling, other Cardiovascular: Denies: no symptoms, chest pain, edema, irregular heart rate, lightheadedness, palpitations, syncope, other Respiratory: Denies: no symptoms, cough, orthopnea, shortness of breath, SOB with excertion, SOB at rest, sputum, stridor, wheezing, other Gastrointestinal/Abdominal: Denies: no symptoms, abdomen distended, abdominal pain, black stools, tarry stools, blood in stool, constipated, diarrhea, difficulty swallowing, nausea, poor appetite, poor fluid intake, rectal bleeding , vomiting, other Genitourinary: Denies: no symptoms, burning, discharge, frequency, flank pain, hematuria, incontinence, pain, urgency, other Endocrine: Denies: no symptoms, excessive sweating, flushing, intolerance to cold, intolerance to heat, increased hunger, increased thirst, increased urine, unexplained weight gain, unexplained weight loss, other Hematologic/Lymphatic: Denies: no symptoms, anemia, easy bleeding, easy bruising, other Allergies: Coded Allergies: No Known Allergies (Unverified , 01/02/19) Subjective 01/04: remains in the icu, no f/c, no night sweats, remains on abx 01/05: in icu, remains on trach/vent, no sig bleeding Objective Last 24 Hour Vital Signs Date Time Temp Pulse Resp B/P (MAP) Pulse Ox O2 Delivery O2 Flow Rate FiO2 01/05/19 15:16 90 22 30 01/05/19 13:02 112 25 30 01/05/19 13:00 109 19 95/58 (70) 100 01/05/19 12:00 98.6 106 18 98/66 (77) 100 01/05/19 12:00 30 01/05/19 12:00 Mechanical Ventilator 01/05/19 12:00 110 01/05/19 11:06 100 22 30 01/05/19 11:00 103 18 104/76 (85) 100 01/05/19 10:00 101 21 109/79 (89) 100 01/05/19 09:00 101 19 110/78 (89) 100 01/05/19 08:35 125 25 30 01/05/19 08:00 Mechanical Ventilator 01/05/19 08:00 35 01/05/19 08:00 84 01/05/19 08:00 98.8 103 18 115/87 (96) 100 01/05/19 07:00 97 20 114/82 (93) 100 01/05/19 06:55 96 20 35 01/05/19 06:00 100 18 107/78 (88) 100 01/05/19 05:13 95 18 35 01/05/19 05:00 95 18 109/81 (90) 100 01/05/19 04:00 35 01/05/19 04:00 Mechanical Ventilator 01/05/19 04:00 97.0 87 16 112/80 (91) 100 01/05/19 03:09 92 21 35 01/05/19 03:01 82 01/05/19 03:00 83 20 112/82 (92) 100 01/05/19 02:00 99.9 96 21 115/85 (95) 100 01/05/19 01:25 104 25 35 01/05/19 01:00 113 21 117/85 (96) 100 01/05/19 00:00 100.9 135 23 117/87 (97) 100 01/05/19 00:00 35 01/05/19 00:00 Mechanical Ventilator 01/04/19 23:15 130 01/04/19 23:12 102.6 01/04/19 23:05 138 24 35 01/04/19 23:00 102.3 153 27 121/17 (51) 99 01/04/19 22:00 168 28 90/47 (61) 100 01/04/19 21:30 166 25 139/79 (99) 99 01/04/19 21:26 170 23 35 01/04/19 21:00 159 21 143/90 (107) 98 01/04/19 20:30 160 20 143/92 (109) 99 01/04/19 20:00 98.6 171 27 133/93 (106) 99 01/04/19 20:00 Mechanical Ventilator 01/04/19 20:00 35 01/04/19 19:30 121 21 109/55 (73) 100 01/04/19 19:19 127 01/04/19 19:01 90 24 35 01/04/19 19:00 100 16 151/121 (131) 100 01/04/19 18:00 83 18 134/88 (103) 100 01/04/19 17:00 110 19 129/98 (108) 98 01/04/19 16:53 105 24 35 Intake and Output 01/04/19 01/05/19 18:59 06:59 Intake Total 1402.83 ml 1515 ml Output Total 1500 ml 3390 ml Balance -97.17 ml -1875 ml IV Total 1182.83 ml 1175 ml Tube Feeding 220 ml 240 ml Other 100 ml Output Urine Total 1500 ml 3190 ml Stool Total 200 ml Laboratory Tests 01/04/19 21:05: Vancomycin Level Trough 6.4 01/05/19 04:10: White Blood Count 13.1#H, Red Blood Count 3.40L, Hemoglobin 10.3L, Hematocrit 30.4L, Mean Corpuscular Volume 89, Mean Corpuscular Hemoglobin 30.3, Mean Corpuscular Hemoglobin Concent 33.9, Red Cell Distribution Width 12.9, Platelet Count 180, Mean Platelet Volume 5.7L, Neutrophils (%) (Auto) 72.2, Lymphocytes ( %) (Auto) 17.2L, Monocytes (%) (Auto) 9.8, Eosinophils (%) (Auto) 0.2, Basophils (%) (Auto) 0.7, Sodium Level 131L, Potassium Level 2.9L, Chloride Level 96L, Carbon Dioxide Level 28, Anion Gap 7, Blood Urea Nitrogen 3L, Creatinine 0.3L, Estimat Glomerular Filtration Rate > 60, Glucose Level 138H, Calcium Level 8.3L, Phosphorus Level 1.9L, Magnesium Level 1.7L, Total Bilirubin 0.3, Aspartate Amino Transf (AST/SGOT) 19, Alanine Aminotransferase ( ALT/SGPT) 32, Alkaline Phosphatase 57, Total Protein 7.0, Albumin 2.4L, Globulin 4.6, Albumin/Globulin Ratio 0.5L 01/05/19 07:49: Arterial Blood pH 7.513H, Arterial Blood Partial Pressure CO2 34.0L, Arterial Blood Partial Pressure O2 181.6H, Arterial Blood HCO3 26.7H, Arterial Blood Oxygen Saturation 98.9, Arterial Blood Base Excess 3.9H, Jurgen Test Positive Height (Feet): 5 Height (Inches): 5.00 Weight (Pounds): 119 Objective General Appearance: moderate distress, Chronically Ill Head: normocephalic, atraumatic Eyes: bilateral eye normal inspection, bilateral eye PERRL ENT: dry mucus membranes, other - constant motor movement of lips and mough Neck: supple, tracheotomy Respiratory: respiratory distress, rales, rhonci ++ trach/vent Cardiovascular: no edema, no JVD, tachycardia, 2+ radial (R) GI: ++ peg : other - Uncircumcised Musculoskeletal: other - Atrophy Neurologic: other - Not responding to exter with fasciculations of lips Psychiatric: other - Stupor Alok Thompson MD January 05, 2019 16:10
--- NOTE | 2019-01-05 16:50 | NUR ---
NURSE NOTES: No sezire noted through shift, temperate remained at 98.0-98.9F with rectal probe and patient remaining on cooling blanket,
--- NOTE | 2019-01-05 18:45 | NUR ---
NURSE NOTES: Dr. Joel assessed patient at the bedside, notified of EEG results awaiting to be read by Dr. Hairston. no verbal orders given at this time.
--- NOTE | 2019-01-05 18:56 | NUR ---
RESPIRATORY NOTE: Received pt on AC 16, 450VT, 30%, PEEP +5. Pt is trach-dependent w/ a cuffed, Shiley 8 tube. Pt obtunded, responds to stimuli/pain. B/S janett. rhonchi, sxn small amounts of thin, clear-white, frothy secretions. Vent plugged into red outlet, ambubag & spare trach kit at bedside. Pt in no apparent distress at this time. Will continue to monitor pt.
--- NOTE | 2019-01-05 19:27 | Infectious Diseases Prog Note ---
Assessment/Plan Assessment/Plan ASSESSMENT: The patient is a 23-year-old male with leukocytosis blood culture, CoNS Fever, improving probable Ventilator associated pneumonia Diarrhea C Diff neg HIV Hep panel : neg Anemia. Thrombocytopenia. Seizure disorder History of recent seizure x1 year. 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 PLAN: add oral Vanco d# 1 ( empirically as wbc increased ) Cont cefepime and add IV Vancomycin d# 3 Repeat blood culture Sputum culture Urine culture Monitor CBC and BMP 2DEcho Subjective Allergies: Coded Allergies: No Known Allergies (Unverified , 01/02/19) Subjective afebrile today WBC increased Objective Vital Signs Last 24 Hour Vital Signs Date Time Temp Pulse Resp B/P (MAP) Pulse Ox O2 Delivery O2 Flow Rate FiO2 01/05/19 18:54 110 23 30 01/05/19 18:00 115 22 98/54 (69) 99 01/05/19 17:09 117 24 30 01/05/19 17:00 112 19 86/44 (58) 100 01/05/19 16:00 Mechanical Ventilator 01/05/19 16:00 95 01/05/19 16:00 98.1 103 18 100/66 (77) 100 01/05/19 16:00 30 01/05/19 15:16 90 22 30 01/05/19 15:00 99 17 101/75 (84) 99 01/05/19 14:00 103 19 96/60 (72) 100 01/05/19 13:02 112 25 30 01/05/19 13:00 109 19 95/58 (70) 100 01/05/19 12:00 98.6 106 18 98/66 (77) 100 01/05/19 12:00 30 01/05/19 12:00 Mechanical Ventilator 01/05/19 12:00 110 01/05/19 11:06 100 22 30 01/05/19 11:00 103 18 104/76 (85) 100 01/05/19 10:00 101 21 109/79 (89) 100 01/05/19 09:00 101 19 110/78 (89) 100 5/3/19 08:35 125 25 30 01/05/19 08:00 Mechanical Ventilator 01/05/19 08:00 35 01/05/19 08:00 84 01/05/19 08:00 98.8 103 18 115/87 (96) 100 01/05/19 07:00 97 20 114/82 (93) 100 01/05/19 06:55 96 20 35 01/05/19 06:00 100 18 107/78 (88) 100 01/05/19 05:13 95 18 35 01/05/19 05:00 95 18 109/81 (90) 100 01/05/19 04:00 35 01/05/19 04:00 Mechanical Ventilator 01/05/19 04:00 97.0 87 16 112/80 (91) 100 01/05/19 03:09 92 21 35 01/05/19 03:01 82 01/05/19 03:00 83 20 112/82 (92) 100 01/05/19 02:00 99.9 96 21 115/85 (95) 100 01/05/19 01:25 104 25 35 01/05/19 01:00 113 21 117/85 (96) 100 01/05/19 00:00 100.9 135 23 117/87 (97) 100 01/05/19 00:00 35 01/05/19 00:00 Mechanical Ventilator 01/04/19 23:15 130 01/04/19 23:12 102.6 01/04/19 23:05 138 24 35 01/04/19 23:00 102.3 153 27 121/17 (51) 99 01/04/19 22:00 168 28 90/47 (61) 100 01/04/19 21:30 166 25 139/79 (99) 99 01/04/19 21:26 170 23 35 01/04/19 21:00 159 21 143/90 (107) 98 01/04/19 20:30 160 20 143/92 (109) 99 01/04/19 20:00 98.6 171 27 133/93 (106) 99 01/04/19 20:00 Mechanical Ventilator 01/04/19 20:00 35 01/04/19 19:30 121 21 109/55 (73) 100 Height (Feet): 5 Height (Inches): 5.00 Weight (Pounds): 119 HEENT: atraumatic Respiratory/Chest: no respiratory distress Cardiovascular: normal rate Abdomen: no organomegaly Microbiology Date/Time Source Procedure Growth Status 01/02/19 23:00 Stool Clostridium difficile Toxin Assay - Final Complete Laboratory Tests Test 01/04/19 21:05 01/05/19 04:10 01/05/19 07:49 Vancomycin Level Trough 6.4 ug/mL (5.0-12.0) White Blood Count 13.1 K/UL (4.8-10.8) #H Red Blood Count 3.40 M/UL (4.70-6.10) L Hemoglobin 10.3 G/DL (14.2-18.0) L Hematocrit 30.4 % (42.0-52.0) L Mean Corpuscular Volume 89 FL (80-99) Mean Corpuscular Hemoglobin 30.3 PG (27.0-31.0) Mean Corpuscular Hemoglobin Concent 33.9 G/DL (32.0-36.0) Red Cell Distribution Width 12.9 % (11.6-14.8) Platelet Count 180 K/UL (150-450) Mean Platelet Volume 5.7 FL (6.5-10.1) L Neutrophils (%) (Auto) 72.2 % (45.0-75.0) Lymphocytes (%) (Auto) 17.2 % (20.0-45.0) L Monocytes (%) (Auto) 9.8 % (1.0-10.0) Eosinophils (%) (Auto) 0.2 % (0.0-3.0) Basophils (%) (Auto) 0.7 % (0.0-2.0) Sodium Level 131 MMOL/L (136-145) L Potassium Level 2.9 MMOL/L (3.5-5.1) L Chloride Level 96 MMOL/L (98-107) L Carbon Dioxide Level 28 MMOL/L (21-32) Anion Gap 7 mmol/L (5-15) Blood Urea Nitrogen 3 mg/dL (7-18) L Creatinine 0.3 MG/DL (0.55-1.30) L Estimat Glomerular Filtration Rate > 60 mL/min (>60) Glucose Level 138 MG/DL (74-106) H Calcium Level 8.3 MG/DL (8.5-10.1) L Phosphorus Level 1.9 MG/DL (2.5-4.9) L Magnesium Level 1.7 MG/DL (1.8-2.4) L Total Bilirubin 0.3 MG/DL (0.2-1.0) Aspartate Amino Transf (AST/SGOT) 19 U/L (15-37) Alanine Aminotransferase (ALT/SGPT) 32 U/L (12-78) Alkaline Phosphatase 57 U/L (46-116) Total Protein 7.0 G/DL (6.4-8.2) Albumin 2.4 G/DL (3.4-5.0) L Globulin 4.6 g/dL Albumin/Globulin Ratio 0.5 (1.0-2.7) L Arterial Blood pH 7.513 (7.350-7.450) Arterial Blood Partial Pressure CO2 34.0 mmHg (35.0-45.0) L Arterial Blood Partial Pressure O2 181.6 mmHg (75.0-100.0) H Arterial Blood HCO3 26.7 mmol/L (22.0-26.0) H Arterial Blood Oxygen Saturation 98.9 % (95-100) Arterial Blood Base Excess 3.9 (-2-2) H Jurgen Test Positive Current Medications Medications (Trade) Dose Ordered Sig/Cassidy Route PRN Reason Start Time Stop Time Status Last Admin Dose Admin Acetaminophen (Tylenol) 650 mg Q4H PRN GT Mild Pain/Temp > 100.5 01/03/19 14:00 02/02/19 13:59 01/04/19 22:42 Albuterol/ Ipratropium (Albuterol/ Ipratropium) 3 ml Q4HRT PRN HHN Shortness of Breath 01/02/19 20:45 01/07/19 20:44 Cefepime HCl 1 gm/ Dextrose 55 ml @ 110 mls/hr EVERY 12 HOURS IVPB 01/03/19 23:00 01/10/19 22:59 01/05/19 10:10 Dextrose/ Electrolytes 1,000 ml @ 75 mls/hr [id number] IV 01/05/19 14:27 02/04/19 14:26 01/05/19 16:29 Heparin Sodium (Porcine) (Heparin 5000 units/ml) 5,000 units EVERY 12 HOURS SUBQ 01/02/19 21:00 02/01/19 20:59 01/05/19 10:13 Levetiracetam (Keppra) 1,000 mg Q12HR GT 01/03/19 21:00 02/02/19 08:59 01/05/19 10:07 Lorazepam (Ativan 2mg/ml 1ml) 2 mg Q1H PRN IV FOr seizure 01/04/19 22:30 01/11/19 22:29 01/05/19 00:00 Pantoprazole (Protonix) 40 mg DAILY IVP 01/03/19 09:00 02/02/19 08:59 01/05/19 10:05 Phenytoin 1000 mg/ Sodium Chloride 295 ml @ 295 mls/hr Q12HR IVPB 01/04/19 21:45 02/03/19 21:44 01/05/19 10:10 Potassium Phosphate 20 mm/ Sodium Chloride 281.6667 ml @ 46.944 m... ONCE IV 01/05/19 16:00 01/05/19 22:00 01/05/19 16:55 Vancomycin HCl (Vanco rx to dose) 1 ea DAILY PRN MISC Per rx protocol 01/03/19 20:30 02/02/19 20:29 Vancomycin HCl 1 gm/Dextrose 275 ml @ 183.708 mls/hr Q8H IVPB 01/04/19 23:00 01/09/19 22:59 01/05/19 15:05 Marcell Palomares MD January 05, 2019 19:27
--- NOTE | 2019-01-05 19:35 | NUR ---
HAND-OFF: Report given to ILA Perez.
--- NOTE | 2019-01-05 19:40 | NUR ---
NURSE NOTES: PATIENT LETHARGIC, NON VERBAL, OPEN EYES STATUS, ON TRACH TO VENT AC 16/TV 450/FIO2 30%/PEEP 5, O2 SATURATION 100% NOTED, ABDOMEN SOFT, NON TENDER, RECTAL TUBE INTACT, BROWN LIQUID STOOL OUTED, G TUBE INTACT AND PATENT, ONGOING JEVITY 1.2 AT 55ML/HR VIA G TUBE, NO RESIDUE NOTED, F/C INTACT AND PATENT YELLOW URINE OUTED, PERIPHERAL LINE TO RIGHT HAND 20G AND LEFT HAND 22G, D5W NS W/ KCL 20MEQ AT 75ML/HR VIA PERIPHERAL LINE, KEPT SZ PRECAUTION, MADE LOWER BED POSITION, HOB 30 DEGREE, PROVIDED CALL LIGHT WITHIN REACH, WILL CONTINUE TO MONITOR.
[2019-01-05] MEDS: Vancomycin oral 125mg/2.5ml ORAL SCH (20:57)
--- NOTE | 2019-01-05 21:30 | NUR ---
NURSE NOTES: PATIENT'S MOTHER STAYED AT BED SIDE, NO ACUTE DISTRESS OR SZ NOTED.
--- NOTE | 2019-01-05 22:03 | Neurology Progress Note ---
Interim History Interim History ROS Limited/Unobtainable: Yes Events: Seizures have stopped now Review of Systems All Systems: reviewed and negative except above Objective Physical Exam Last Vital Signs Date Time Temp Pulse Resp B/P (MAP) Pulse Ox O2 Delivery O2 Flow Rate FiO2 01/05/19 21:24 97 22 30 01/05/19 18:00 98/54 (69) 99 01/05/19 16:00 Mechanical Ventilator 01/05/19 16:00 98.1 01/02/19 18:45 55.0 Laboratory Tests Test 01/05/19 04:10 01/05/19 07:49 01/05/19 21:30 White Blood Count 13.1 K/UL (4.8-10.8) #H Red Blood Count 3.40 M/UL (4.70-6.10) L Hemoglobin 10.3 G/DL (14.2-18.0) L Hematocrit 30.4 % (42.0-52.0) L Mean Corpuscular Volume 89 FL (80-99) Mean Corpuscular Hemoglobin 30.3 PG (27.0-31.0) Mean Corpuscular Hemoglobin Concent 33.9 G/DL (32.0-36.0) Red Cell Distribution Width 12.9 % (11.6-14.8) Platelet Count 180 K/UL (150-450) Mean Platelet Volume 5.7 FL (6.5-10.1) L Neutrophils (%) (Auto) 72.2 % (45.0-75.0) Lymphocytes (%) (Auto) 17.2 % (20.0-45.0) L Monocytes (%) (Auto) 9.8 % (1.0-10.0) Eosinophils (%) (Auto) 0.2 % (0.0-3.0) Basophils (%) (Auto) 0.7 % (0.0-2.0) Sodium Level 131 MMOL/L (136-145) L Potassium Level 2.9 MMOL/L (3.5-5.1) L Chloride Level 96 MMOL/L (98-107) L Carbon Dioxide Level 28 MMOL/L (21-32) Anion Gap 7 mmol/L (5-15) Blood Urea Nitrogen 3 mg/dL (7-18) L Creatinine 0.3 MG/DL (0.55-1.30) L Estimat Glomerular Filtration Rate > 60 mL/min (>60) Glucose Level 138 MG/DL (74-106) H Calcium Level 8.3 MG/DL (8.5-10.1) L Phosphorus Level 1.9 MG/DL (2.5-4.9) L Magnesium Level 1.7 MG/DL (1.8-2.4) L Total Bilirubin 0.3 MG/DL (0.2-1.0) Aspartate Amino Transf (AST/SGOT) 19 U/L (15-37) Alanine Aminotransferase (ALT/SGPT) 32 U/L (12-78) Alkaline Phosphatase 57 U/L (46-116) Total Protein 7.0 G/DL (6.4-8.2) Albumin 2.4 G/DL (3.4-5.0) L Globulin 4.6 g/dL Albumin/Globulin Ratio 0.5 (1.0-2.7) L Arterial Blood pH 7.513 (7.350-7.450) Arterial Blood Partial Pressure CO2 34.0 mmHg (35.0-45.0) L Arterial Blood Partial Pressure O2 181.6 mmHg (75.0-100.0) H Arterial Blood HCO3 26.7 mmol/L (22.0-26.0) H Arterial Blood Oxygen Saturation 98.9 % (95-100) Arterial Blood Base Excess 3.9 (-2-2) H Jurgen Test Positive Vancomycin Level Trough 10.8 ug/mL (5.0-12.0) General: other Head: other Neurologic Exam Speech: other Language: other Cranial Nerve II: other Cranial Nerves III, IV, : other Cranial Nerve V: other Cranial Nerve VII: other Cranial Nerve VIII: other Cranial Nerve IX: other Cranial Nerve XI: other Cranial Nerve XII: other Motor System: other Sensory: other Coordination: other - Eyes opening intermittently without tracking to noxious stimuli. Decerebrate posturing in UEs to noxious stim. Triple flexing in LEs to stim. Pupils briskly reactive. Gag intact to trach suction. Impression/Recommendations Problems: (1) Seizure disorder (2) Sepsis (3) Anti-NMDA receptor encephalitis (4) Chronic respiratory failure (5) Status post tracheostomy (6) S/P percutaneous endoscopic gastrostomy (PEG) tube placement Recommendations EEG ordered LP ordered Test for : Glucose Protein Culture/Sensitivity Oligoclonal Bands Coccoides Anti NMDA antibody HSV Maintain normothermia Commence Broad spectrum Abx Na 135-145 Maintain normoglycemia IV Keppra 1g BID Check Keppra serum level 1-2mg Ativan for seizure activity PRN Record/ report all seizure activity. Q hr Neuro checks . Advisable to commence Rituxan DREA for induction phase x 2 weeks . Nell Bragg N.P. January 05, 2019 22:02
[2019-01-05] MEDS: Vancomycin 1.25gm Premix IVPB SCH (23:04)
--- NOTE | 2019-01-05 23:50 | NUR ---
NURSE NOTES: PATIENT ASLEEP STATUS, KEPT CALM ENVIRONMENT, WILL CONTINUE TO MONITOR.
[2019-01-06] VITALS (24 sets, daily range): BP systolic 97–119; BP diastolic 50–86
--- NOTE | 2019-01-06 00:30 | Progress Note ---
DATE: 01/05/2019 SUBJECTIVE: The patient's clinical condition has improved. He resists opening of his eyelid and he squeezes the hand when he was shaking his hand. The report of the EEG is still not available. It is clear that the patient has some cerebral activity. PHYSICAL EXAMINATION: VITAL SIGNS: Blood pressure 98/64, his pulse is 116, respirations are 22, and temperature 98.1. HEENT: Eyes were normal. ENT, mucous membranes were moist and intact. NECK: Supple with no JVD without lymph nodes. Tracheostomy site is clean. LUNGS: Clear without rhonchi, rales, or wheezing. Secretions are small, thin, and auguste. HEART: Normal sounds with regular beats. There is tachycardia at rest. ABDOMEN: Soft and nontender with normal bowel sounds. Gastrostomy site is clean. EXTREMITIES: Warm without cyanosis, clubbing, or edema. LABORATORY AND DIAGNOSTIC DATA: Hemoglobin is 10.3, hematocrit 30.4 with an MCV of 89, WBC of 13.1, and platelets 180,000. His BUN and creatinine are 3 and 0.3 respectively. His sodium is 141, potassium 2.9, chloride 96, CO2 is 28. His calcium is 8.3. His phosphorus is 1.9, his magnesium is 1.7, albumin is 2.4. Total protein is 7. All liver function tests are normal. The patient has hypokalemia, hypomagnesemia, and hypophosphatemia. All the three elements were corrected. Chest x-ray done today revealed clear lungs, heart normal in size. There is no active disease. Levetiracetam level was pending. ABG, pH was 7.51, pCO2 is 43, pO2 181, bicarbonate 26, O2 saturation 98, and base excess was 3.9. IMPRESSION: 1. The patient has cerebral activity, which sounds the problem of brain is low. 2. Leukocytosis. 3. Tachycardia. 4. . PLAN: 1. He was started on vancomycin 1 g IV piggyback q.8 h. 2. Cefepime 1 g IV piggyback q.12 h. 3. Repeat laboratory tests will be done in a.m. Klever Leung M.D. DR: King JOB#: [id number] CC:
--- NOTE | 2019-01-06 02:00 | NUR ---
NURSE NOTES: ORAL CARE WAS DONE, NO DISTRESS NOTED AT THIS TIME, WILL CONTINUE TO MONITOR.
--- NOTE | 2019-01-06 04:10 | NUR ---
NURSE NOTES: MORNING CARE AND ORAL CARE WAS DONE, NO SZ OR DISTRESS NOTED WHILE CARE.
[2019-01-06 06:29] LABS: ALANINE AMINOTRANSFERASE 32 U/L (12-78); ALBUMIN 2.5 G/DL (3.4-5.0); ALBUMIN/GLOBULIN RATIO 0.5 (1.0-2.7); ALKALINE PHOSPHATASE 77 U/L (46-116); ANION GAP 8 mmol/L (5-15); ASPARTATE AMINO TRANSFERASE 18 U/L (15-37); BILIRUBIN,TOTAL 0.3 MG/DL (0.2-1.0); BLOOD UREA NITROGEN 3 mg/dL (7-18); CALCIUM 8.4 MG/DL (8.5-10.1); CARBON DIOXIDE 27 MMOL/L (21-32); CHLORIDE 100 MMOL/L (98-107); CREATININE 0.5 MG/DL (0.55-1.30); POTASSIUM 4.2 MMOL/L (3.5-5.1); SODIUM 135 MMOL/L (136-145)
--- NOTE | 2019-01-06 06:30 | NUR ---
NURSE NOTES: PATIENT AWOKE, ABLE TO MOVE BOTH ARMS AND LEGS AT THIS TIME, DID NOT FOLLOWED COMMANDS, WILL CONTINUE PLAN OF CARE.
[2019-01-06 06:31] LABS: BASOPHILS % (AUTO) 1.1 % (0.0-2.0); EOSINOPHILS % (AUTO) 0.8 % (0.0-3.0); HEMATOCRIT 31.3 % (42.0-52.0); HEMOGLOBIN 10.6 G/DL (14.2-18.0); LYMPHOCYTES % (AUTO) 34.6 % (20.0-45.0); MEAN CORPUSCULAR VOLUME 89 FL (80-99); MONOCYTES % (AUTO) 9.4 % (1.0-10.0); PLATELET COUNT 210 K/UL (150-450); RED CELL DISTRIBUTION WIDTH 13.3 % (11.6-14.8); WHITE BLOOD COUNT 9.7 K/UL (4.8-10.8)
[2019-01-06] MEDS: Vancomycin 1.25gm Premix IVPB SCH ×2 (06:34→15:26)
--- NOTE | 2019-01-06 07:00 | NUR ---
Received Patient on ACVC RR 16, VT 450, FIO2 30%, PEEP +5. Patient has a Shiley 8 tracheostomy tube, secured with trache ties. Breath sounds reveal bilateral rhonchi. Suction minimal white, clear secretions as needed. Patient obtunded lying comfortably in bed. Vent plugged into red outlet. Alarms on and audible. Will continue to monitor thought the day.
[2019-01-06 07:14] LABS: APPEARANCE,URINE CLEAR; BILIRUBIN, URINE NEGATIVE (NEGATIVE); COLOR,URINE PALE YELLOW; GLUCOSE, URINE (UA) NEGATIVE (NEGATIVE); KETONES,URINE NEGATIVE (NEGATIVE); LEUKOCYTE ESTERASE ,URINE NEGATIVE (NEGATIVE); NITRITE,URINE NEGATIVE (NEGATIVE); PH,URINE 8 (4.5-8.0); PROTEIN,URINE NEGATIVE (NEGATIVE); UROBILINOGEN,URINE NORMAL MG/DL (0.0-1.0)
--- NOTE | 2019-01-06 07:15 | NUR ---
HAND-OFF: Report given to ILA BARNES.
--- NOTE | 2019-01-06 07:45 | NUR ---
NURSE NOTES: Received the patient from ILA Baltazar. Patient lethargic, slightly opens eyes spontaneously. unable to follow commands. Patient on trach to vent, shiley 8.0, AC 16, TV 450, FIO2 30% PEEP 5, O2 sat 100%. SR noted on the monitor. No acute distress noted. Rectal tube draining brown liquid stool, douglas cath intact and patent, draining yellow urine by gravity. G tube intact and patent, running jevity 1.2 at 55ml/hr. HOB elevated. Left hand 22G and left forearm 22G intact, running D5NS with 20meq KCl at 75ml/hr. SCDs on bilateral lower extremities. Cooling blanket is off at this time, temp 96.5. Bed in lowest position, locked, side rails upx3. Bed alarm on. Will continue to monitor.
[2019-01-06] MEDS: levETIRAcetam 500mg/5ml Liquid GT SCH ×2 (09:47→20:35)
[2019-01-06] MEDS: Vancomycin oral 125mg/2.5ml ORAL SCH ×4 (09:47→20:36)
[2019-01-06] MEDS: Phenytoin 1,000 MG in NS 275 ML IVPB SCH ×2 (09:47→20:36)
[2019-01-06] MEDS: Cefepime HCl 1 GM in D5W 55 ML IVPB SCH ×2 (09:48→20:36)
[2019-01-06] MEDS: Pantoprazole Inj IVP SCH (09:49)
[2019-01-06] MEDS: Heparin 5000 units/ml inj SUBQ SCH ×2 (09:51→20:37)
--- NOTE | 2019-01-06 10:00 | NUR ---
NURSE NOTES: Patient was turned and repositioned. Rectal tube and douglas cath intact, draining well.
--- NOTE | 2019-01-06 12:00 | NUR ---
NURSE NOTES: Patient on Jevity 1.2 at 55ml/hr via G-Tube, no residual noted. HOB kept elevated. Patient able to move extremities.
--- NOTE | 2019-01-06 12:56 | NUR ---
CASE MANAGEMENT: REVIEW SI: SEPSIS . RESPIRATORY FAILURE T 96.5 HR 107 RR 19 BP 110/80 SAT 100% MECH VENT H/H 10.6/31.3 NA 135 IS: VANCO IV Q8HR D5 NS w/KCl 20mEq IVF @ 75ML/HR DILANTIN IV Q12HR CEFEPIME IV Q12HR KEPPRA GT Q12HR ICU STATUS DCP: PATIENT IS FROM [facility]
--- NOTE | 2019-01-06 13:20 | NUR ---
NURSE NOTES: Patient resting in bed comfortably. No acute distress noted. pt's mother at bedside.
--- NOTE | 2019-01-06 14:00 | NUR ---
NURSE NOTES: Patient on cooling blanket, rectal temp 99.4
--- NOTE | 2019-01-06 15:03 | NUR ---
NURSE NOTES: no seizure activity observed. VSS. No cute distress noted.
--- NOTE | 2019-01-06 15:20 | NUR ---
NURSE NOTES: Temp 98.8 with cooling blanket.
--- NOTE | 2019-01-06 15:28 | Infectious Diseases Prog Note ---
Assessment/Plan Assessment/Plan ASSESSMENT: The patient is a 23-year-old male with leukocytosis, Sp blood culture, CoNS ? contaminant, will teat as true bacteremia Fever, (on cooling blanket ) due to sepsis vs relapse of anti-NMDA encephalitis probable Ventilator associated pneumonia Diarrhea C Diff neg ( will treat for C Diff in-view of sever watery diarrhea HIV Hep panel : neg Anemia. Thrombocytopenia. Seizure disorder History of recent seizure x1 year. 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 PLAN: Cont oral Vanco d# 2 ( empirically as wbc increased ) Cont cefepime and IV Vancomycin d# 4 Repeat blood culture Sputum culture ( delayed , despite of being ordered on 01/03) Urine culture ( delayed , despite of being ordered on 01/03) Monitor CBC and BMP 2DEcho cooling blanket Subjective Allergies: Coded Allergies: No Known Allergies (Unverified , 01/02/19) Subjective afebrile on cooling blanket WBC improved Objective Vital Signs Last 24 Hour Vital Signs Date Time Temp Pulse Resp B/P (MAP) Pulse Ox O2 Delivery O2 Flow Rate FiO2 01/06/19 15:00 107 18 109/72 (84) 100 01/06/19 14:36 115 21 30 01/06/19 14:00 110 18 106/72 (83) 100 01/06/19 13:29 102 19 30 01/06/19 13:00 102 18 114/83 (93) 98 01/06/19 12:00 Mechanical Ventilator 01/06/19 12:00 107 01/06/19 12:00 98.4 100 18 107/77 (87) 98 01/06/19 12:00 30 01/06/19 11:12 117 19 30 01/06/19 11:00 106 18 105/63 (77) 98 01/06/19 10:00 105 18 118/69 (85) 100 01/06/19 09:29 98 18 30 01/06/19 09:00 107 19 117/78 (91) 100 01/06/19 08:00 101 01/06/19 08:00 96.5 96 19 110/80 (90) 100 01/06/19 08:00 Mechanical Ventilator 01/06/19 08:00 30 01/06/19 07:00 90 17 114/82 (93) 96 01/06/19 06:55 100 22 30 01/06/19 06:00 95 17 114/79 (91) 99 01/06/19 05:06 101 22 30 01/06/19 05:00 100 18 108/73 (85) 99 01/06/19 04:00 99.8 107 23 112/62 (79) 99 01/06/19 04:00 Mechanical Ventilator 01/06/19 04:00 30 01/06/19 03:02 105 16 30 01/06/19 03:01 115 01/06/19 03:00 110 20 103/50 (67) 99 01/06/19 02:00 101 17 102/56 (71) 99 01/06/19 01:24 109 20 30 01/06/19 01:00 100 18 106/67 (80) 100 01/06/19 00:00 Mechanical Ventilator 01/06/19 00:00 99.2 101 17 105/69 (81) 100 01/06/19 00:00 30 01/05/19 23:01 104 01/05/19 23:00 108 19 99/55 (70) 100 01/05/19 22:57 109 20 30 01/05/19 22:00 108 19 107/57 (74) 100 01/05/19 21:24 97 22 30 01/05/19 21:00 97 18 106/74 (85) 100 01/05/19 20:00 Mechanical Ventilator 01/05/19 20:00 30 01/05/19 20:00 97.8 96 16 104/77 (86) 100 01/05/19 19:39 99 01/05/19 19:00 107 19 107/80 (89) 100 01/05/19 18:54 110 23 30 01/05/19 18:00 115 22 98/54 (69) 99 01/05/19 17:09 117 24 30 01/05/19 17:00 112 19 86/44 (58) 100 01/05/19 16:00 Mechanical Ventilator 01/05/19 16:00 95 01/05/19 16:00 98.1 103 18 100/66 (77) 100 01/05/19 16:00 30 Height (Feet): 5 Height (Inches): 5.00 Weight (Pounds): 119 HEENT: anicteric Respiratory/Chest: no respiratory distress Cardiovascular: regularly irregular Abdomen: non distended Laboratory Tests Test 01/05/19 21:30 01/06/19 05:30 01/06/19 05:50 Vancomycin Level Trough 10.8 ug/mL (5.0-12.0) White Blood Count 9.7 K/UL (4.8-10.8) Red Blood Count 3.50 M/UL (4.70-6.10) L Hemoglobin 10.6 G/DL (14.2-18.0) L Hematocrit 31.3 % (42.0-52.0) L Mean Corpuscular Volume 89 FL (80-99) Mean Corpuscular Hemoglobin 30.2 PG (27.0-31.0) Mean Corpuscular Hemoglobin Concent 33.7 G/DL (32.0-36.0) Red Cell Distribution Width 13.3 % (11.6-14.8) Platelet Count 210 K/UL (150-450) Mean Platelet Volume 5.6 FL (6.5-10.1) L Neutrophils (%) (Auto) 54.0 % (45.0-75.0) Lymphocytes (%) (Auto) 34.6 % (20.0-45.0) Monocytes (%) (Auto) 9.4 % (1.0-10.0) Eosinophils (%) (Auto) 0.8 % (0.0-3.0) Basophils (%) (Auto) 1.1 % (0.0-2.0) Sodium Level 135 MMOL/L (136-145) L Potassium Level 4.2 MMOL/L (3.5-5.1) Chloride Level 100 MMOL/L (98-107) Carbon Dioxide Level 27 MMOL/L (21-32) Anion Gap 8 mmol/L (5-15) Blood Urea Nitrogen 3 mg/dL (7-18) L Creatinine 0.5 MG/DL (0.55-1.30) #L Estimat Glomerular Filtration Rate > 60 mL/min (>60) Glucose Level 109 MG/DL (74-106) H Calcium Level 8.4 MG/DL (8.5-10.1) L Total Bilirubin 0.3 MG/DL (0.2-1.0) Aspartate Amino Transf (AST/SGOT) 18 U/L (15-37) Alanine Aminotransferase (ALT/SGPT) 32 U/L (12-78) Alkaline Phosphatase 77 U/L (46-116) Total Protein 7.2 G/DL (6.4-8.2) Albumin 2.5 G/DL (3.4-5.0) L Globulin 4.7 g/dL Albumin/Globulin Ratio 0.5 (1.0-2.7) L Urine Color Pale yellow Urine Appearance Clear Urine pH 8 (4.5-8.0) Urine Specific [place] 1.010 (1.005-1.035) Urine Protein Negative (NEGATIVE) Urine Glucose (UA) Negative (NEGATIVE) Urine Ketones Negative (NEGATIVE) Urine Blood Negative (NEGATIVE) Urine Nitrite Negative (NEGATIVE) Urine Bilirubin Negative (NEGATIVE) Urine Urobilinogen Normal MG/DL (0.0-1.0) Urine Leukocyte Esterase Negative (NEGATIVE) Urine RBC 0 /HPF (0 - 0) Urine WBC 0-2 /HPF (0 - 0) Urine Squamous Epithelial Cells Occasional /LPF Urine Bacteria Occasional /HPF (NONE) Current Medications Medications (Trade) Dose Ordered Sig/Cassidy Route PRN Reason Start Time Stop Time Status Last Admin Dose Admin Acetaminophen (Tylenol) 650 mg Q4H PRN GT Mild Pain/Temp > 100.5 01/03/19 14:00 02/02/19 13:59 01/04/19 22:42 Albuterol/ Ipratropium (Albuterol/ Ipratropium) 3 ml Q4HRT PRN HHN Shortness of Breath 01/02/19 20:45 01/07/19 20:44 Cefepime HCl 1 gm/ Dextrose 55 ml @ 110 mls/hr EVERY 12 HOURS IVPB 01/03/19 23:00 01/10/19 22:59 01/06/19 09:48 Dextrose/ Electrolytes 1,000 ml @ 75 mls/hr [id number] IV 01/05/19 14:27 02/04/19 14:26 01/06/19 10:11 Heparin Sodium (Porcine) (Heparin 5000 units/ml) 5,000 units EVERY 12 HOURS SUBQ 01/02/19 21:00 02/01/19 20:59 01/06/19 09:51 Levetiracetam (Keppra) 1,000 mg Q12HR GT 01/03/19 21:00 02/02/19 08:59 01/06/19 09:47 Lorazepam (Ativan 2mg/ml 1ml) 2 mg Q1H PRN IV FOr seizure 01/04/19 22:30 01/11/19 22:29 01/05/19 00:00 Pantoprazole (Protonix) 40 mg DAILY IVP 01/03/19 09:00 02/02/19 08:59 01/06/19 09:49 Phenytoin 1000 mg/ Sodium Chloride 295 ml @ 295 mls/hr Q12HR IVPB 01/04/19 21:45 02/03/19 21:44 01/06/19 09:47 Vancomycin HCl (Firvanq) 125 mg FOUR TIMES A DAY ORAL 01/05/19 21:00 01/12/19 20:59 01/06/19 13:15 Vancomycin HCl (Vanco rx to dose) 1 ea DAILY PRN MISC Per rx protocol 01/03/19 20:30 02/02/19 20:29 Vancomycin HCl/ Dextrose 275 ml @ 183.333 mls/hr Q8H IVPB 01/05/19 23:00 01/10/19 22:59 01/06/19 06:34 Marcell Palomares MD January 06, 2019 15:28
--- NOTE | 2019-01-06 15:30 | NUR ---
NURSE NOTES: Dr. Palomares in facility, updated on pt's condition. Notified neg C.diff result, okay to continue oral vanco.
--- NOTE | 2019-01-06 17:30 | NUR ---
NURSE NOTES: Patient is resting in bed. No acute distress noted. Patient was turned and repositioned. patient kept clean and dry. Sacral dressing changed, clean and dry.
--- NOTE | 2019-01-06 18:30 | NUR ---
NURSE NOTES: Patient off cooling blanket, Temp 98.1
--- NOTE | 2019-01-06 19:01 | NUR ---
HAND-OFF: Report given to ILA Baltazar.
--- NOTE | 2019-01-06 19:30 | NUR ---
NURSE NOTES: PATIENT LETHARGIC, NON VERBAL, OPEN EYES STATUS, ON TRACH TO VENT AC 16/TV 450/FIO2 30%/PEEP 5, O2 SATURATION 100% NOTED, ABDOMEN SOFT, NON TENDER, RECTAL TUBE INTACT, BROWN LIQUID STOOL OUTED, G TUBE INTACT AND PATENT, ONGOING JEVITY 1.2 AT 55ML/HR VIA G TUBE, NO RESIDUE NOTED, F/C INTACT AND PATENT YELLOW URINE OUTED, PERIPHERAL LINE TO LEFT FA 22G AND RIGHT WRIST 24G, D5W NS W/ KCL 20MEQ AT 75ML/HR VIA PERIPHERAL LINE, KEPT SZ PRECAUTION, ON P200 BED, MADE LOWER BED POSITION, KEPT HOB 30 DEGREE, PROVIDED CALL LIGHT WITHIN REACH, WILL CONTINUE TO MONITOR.
--- NOTE | 2019-01-06 21:35 | NUR ---
NURSE NOTES: PATIENT SPONTANEOUS OPENED EYES, SMILING, CHEWING, MOVING ARMS, SENSATION TO BOTH FEET BUT UNABLE TO EYE CONTACT, DID NOT FOLLOWED COMMANDS STATUS, WILL CONTINUE TO MONITOR.
--- NOTE | 2019-01-06 22:00 | NUR ---
NURSE NOTES: SEEN THE PATIENT BY DR. PIMENTEL AND DISCUSSED WITH PT'S PARENTS.
--- NOTE | 2019-01-06 23:05 | NUR ---
NURSE NOTES: CALLED [facility] REGARDING VANCO TROUGH LEVEL12.9 THAT PHARMACIST WAS AWARE.
[2019-01-06] MEDS: Vancomycin 1.5gm Premix 275 ML IVPB SCH (23:21)
[2019-01-07] VITALS (24 sets, daily range): BP systolic 109–146; BP diastolic 74–113
--- NOTE | 2019-01-07 00:52 | NUR ---
NURSE NOTES: PT'S FAMILY STAYED AT BED SIDE, NO SZ SIGN NOTED, WILL CONTINUE TO MONITOR.
[2019-01-07] MEDS: Acetaminophen 650mg/20.3ml GT PRN ×2 (01:27→21:04)
--- NOTE | 2019-01-07 01:27 | NUR ---
NURSE NOTES: PATIENT LOOKS UNCOMFORTABLE THAT GIVEN TYLENOL 650MG VIA G TUBE FOR PAIN OD 10/15, WILL CONTINUE TO MONITOR.
--- NOTE | 2019-01-07 03:00 | NUR ---
NURSE NOTES: PATIENT CHEWING ON AND OFF WHILE SLEEP AT THIS TIME, WILL CONTINUE TO MONITOR.
--- NOTE | 2019-01-07 05:00 | NUR ---
NURSE NOTES: MORNING CARE AND ORAL CARE WAS DONE, RECTAL TUBE INTACT AND PATENT, BROWN COLOR SOLID STOOL OUTED.
--- NOTE | 2019-01-07 06:30 | NUR ---
NURSE NOTES: NO SZ OR DISTRESS NOTED AT THIS SHIFT.
[2019-01-07] MEDS: Vancomycin 1.5gm Premix 275 ML IVPB SCH ×2 (06:36→14:52)
--- NOTE | 2019-01-07 07:01 | NUR ---
RESPIRATORY NOTE: Received pt on ordered vent settings. Pt tracheostomy tube is patent and secured. Suctioned pt prn. vent alarms are on and audible. Vent is plugged into red outlet. Will monitor pt progress.
--- NOTE | 2019-01-07 07:15 | NUR ---
HAND-OFF: Report given to ILA BARNES.
--- NOTE | 2019-01-07 07:21 | NUR ---
NURSE NOTES: Received the patient from ILA Baltazar. Patient lethargic, slightly opens eyes spontaneously. unable to follow commands. Patient on trach to vent, shiley 8.0, AC 16, TV 450, FIO2 30% PEEP 5, O2 sat 100%. SR noted on the monitor. No acute distress noted. Rectal tube draining brown liquid stool, douglas cath intact and patent, draining yellow urine by gravity. G tube intact and patent, running jevity 1.2 at 55ml/hr. HOB elevated. Left hand 22G and left forearm 22G intact, running D5NS with 20meq KCl at 75ml/hr. SCDs on bilateral lower extremities. Cooling blanket is off at this time, temp 97.5. Bed in lowest position, locked, side rails upx3. Bed alarm on. Will continue to monitor.
[2019-01-07] MEDS: Vancomycin oral 125mg/2.5ml ORAL SCH ×4 (08:49→21:00)
[2019-01-07] MEDS: Cefepime HCl 1 GM in D5W 55 ML IVPB SCH ×2 (08:49→21:00)
[2019-01-07] MEDS: levETIRAcetam 500mg/5ml Liquid GT SCH ×2 (08:50→20:59)
[2019-01-07] MEDS: Pantoprazole Inj IVP SCH (08:50)
[2019-01-07] MEDS: Heparin 5000 units/ml inj SUBQ SCH ×2 (08:51→21:01)
[2019-01-07] MEDS: Phenytoin 1,000 MG in NS 275 ML IVPB SCH ×2 (09:29→21:00)
--- NOTE | 2019-01-07 09:40 | NUR ---
NURSE NOTES: Patient was turned and repositioned. Oral care and douglas care provided. VSS.
--- NOTE | 2019-01-07 10:43 | NUR ---
RD ASSESSMENT & RECOMMENDATIONS SEE CARE ACTIVITY FOR COMPLETE ASSESSMENT DAILY ESTIMATED NEEDS: Needs based on Critical care, underweight, wound/ 41kg 28-35 kcals/kg [id number] total kcals 1.25-2 g protein/kg 51-82 g total protein 25-30 mL/kg 25-1230 total fluid mLs NUTRITION DIAGNOSIS: * Swallowing difficulty R/T respiratory status, dx of uncontrolled seizures as evidenced by trach/vent dep, PEG dep. * Increased kcal/prot needs R/T wound healing and underweight status as evidenced by admitted w/ sacral redness per RN report, low BMI per guidelines, pt @ 73% IBW. CURRENT TF: Jevity 1.2 @ 55ml/hr x 24hrs ENTERAL NUTRITION RECOMMENDATIONS: Jevity 1.2 @ 50ml/hr x 24 hrs to provide 1200ml, 1440kcal, 67g prot, 968ml free water * Rec to DECREASE goal rate to 50ml/hr x 24 hrs -> meets 100% est kcal/prot needs * HOB over 30 degrees/ water flush per MD ADDITIONAL RECOMMENDATIONS: 1) Per SNF: HT=63", WT=90lbs (obtained 01/02/19) 2) Calibrated bedscale wt: conflicting wts, pt on P200 mattress 3) Monitor lytes, replete as needed 4) Consider probiotics BID -> +diarrhea 5) Continue Jasbir 1pkt BID for skin integrity - Add VIT C 250 mg daily 6) Monitor BGs w/ TF
--- NOTE | 2019-01-07 11:53 | NUR ---
NURSE NOTES: Patient is resting in bed comfortably. No seizure activity, afebrile
--- NOTE | 2019-01-07 11:56 | NUR ---
CASE MANAGEMENT: REVIEW SI: SEPSIS . RESPIRATORY FAILURE T 98.5 HR 103 RR 22 BP 130/98 SAT 100% MECH VENT FIO2 30 IS: VANCO IV Q8HR D5 NS w/KCl 20mEq IVF @ 75ML/HR DILANTIN IV Q12HR CEFEPIME IV Q12HR KEPPRA GT Q12HR ICU STATUS DCP: PATIENT IS FROM [facility]
--- NOTE | 2019-01-07 14:07 | NUR ---
NURSE NOTES: Patient tolerating tube feeding, HOB kept elevated. No acute distress noted. VSS
--- NOTE | 2019-01-07 16:21 | General Progress Note ---
Assessment/Plan Assessment/Plan: Assessment and Recs: # Anemia of chronic disease due to underlying chronic medical issues, multifactorial --> Anemia workup has been reviewed, no dory noted --> No evidence of hemolysis is noted, peripheral smear has been reviewed. --> Hgb goal >7. Transfuse prn. --> Epogen or iron at this time is not particularly indicated --> Medications have been reviewed --> evaluate with Gi team prn --> transfuse if hgb is < 7 (will trend CBC daily) --> ferritin is 378, tibc is 201 => hgb trend 10.4-->10.3-->10.6 # Thrombocytopenia - potential causes multifactorial, evaluate liver and viral etiologies to begin, also could be related to underlying medications patient has received. --> Hep panel and HIV is negative --> US abd shows borderline splenomegaly --> Peripheral smear ordered to evaluate for blasts /schistocytes and none noted --> abx and other meds have been reviewed --> ok for ppx if plt >50k w/ either heparin or lovenox --> Trend 130k-->121k # Leukocytosis with cxr showing left infitrate, cmp is unremarkable, initial lactate elevated --> peripheral smear reviewed --> wbc trend 12-->9 # Sepsis r/o undelrying infection --> on abx, as per id # Pneumonia on abx # Anti-NMDA rec # h/o seizures. --> Valproic acid level undetected. No tonic/clonic seizure activity and Keppra had been given --> per neuro # Respiratory with vent/trach --> as per Antony santos # Dysphagia s/p peg The timing of this note does not necessarily reflect the time of the patient was seen. Greatly appreciate consultation! Subjective Constitutional: Denies: no symptoms, chills, diaphoresis, fever, malaise, weakness, other HEENT: Denies: no symptoms, eye pain, blurred vision, tearing, double vision, ear pain, ear discharge, nose pain, nose congestion, throat pain, throat swelling, mouth pain, mouth swelling, other Respiratory: Denies: no symptoms, cough, orthopnea, shortness of breath, SOB with excertion, SOB at rest, sputum, stridor, wheezing, other Gastrointestinal/Abdominal: Denies: no symptoms, abdomen distended, abdominal pain, black stools, tarry stools, blood in stool, constipated, diarrhea, difficulty swallowing, nausea, poor appetite, poor fluid intake, rectal bleeding , vomiting, other Genitourinary: Denies: no symptoms, burning, discharge, frequency, flank pain, hematuria, incontinence, pain, urgency, other Neurologic/Psychiatric: Denies: no symptoms, anxiety, depressed, emotional problems, headache, numbness, paresthesia, pre-existing deficit, seizure, tingling, tremors, weakness, other Endocrine: Denies: no symptoms, excessive sweating, flushing, intolerance to cold, intolerance to heat, increased hunger, increased thirst, increased urine, unexplained weight gain, unexplained weight loss, other Hematologic/Lymphatic: Denies: no symptoms, anemia, easy bleeding, easy bruising, other Allergies: Coded Allergies: No Known Allergies (Unverified , 01/02/19) Subjective 01/04: remains in the icu, no f/c, no night sweats, remains on abx 01/05: in icu, remains on trach/vent, no sig bleeding 01/07: no events noted, no f/c, on trach/vent, remains in the icu Objective Last 24 Hour Vital Signs Date Time Temp Pulse Resp B/P (MAP) Pulse Ox O2 Delivery O2 Flow Rate FiO2 01/07/19 16:00 30 01/07/19 16:00 97.5 104 17 118/88 (98) 100 01/07/19 16:00 102 01/07/19 15:18 106 24 30 01/07/19 15:00 107 22 123/94 (104) 100 01/07/19 14:00 107 19 115/79 (91) 100 01/07/19 13:00 108 18 118/77 (91) 100 01/07/19 12:54 107 16 30 01/07/19 12:00 107 01/07/19 12:00 Mechanical Ventilator 01/07/19 12:00 97.8 111 17 127/88 (101) 100 01/07/19 12:00 30 01/07/19 11:00 106 18 124/97 (106) 97 01/07/19 10:55 104 16 30 01/07/19 10:00 90 20 146/113 (124) 100 01/07/19 09:02 102 16 30 01/07/19 09:00 105 20 132/102 (112) 100 01/07/19 08:00 30 01/07/19 08:00 98.5 103 22 130/98 (109) 100 01/07/19 08:00 109 01/07/19 08:00 Mechanical Ventilator 01/07/19 07:01 108 20 30 01/07/19 07:00 99 21 127/94 (105) 100 01/07/19 06:00 103 16 130/96 (107) 100 01/07/19 05:00 108 21 122/89 (100) 100 01/07/19 04:52 105 18 30 01/07/19 04:00 99.4 109 18 109/78 (88) 100 01/07/19 04:00 Mechanical Ventilator 01/07/19 04:00 30 01/07/19 03:30 108 01/07/19 03:30 107 17 30 01/07/19 03:00 108 17 117/80 (92) 100 01/07/19 02:00 106 18 112/92 (99) 100 01/07/19 01:30 103 20 30 01/07/19 01:00 102 16 121/88 (99) 100 01/07/19 00:00 Mechanical Ventilator 01/07/19 00:00 30 01/07/19 00:00 98.5 111 24 124/89 (101) 99 01/06/19 23:59 109 01/06/19 23:07 118 21 30 01/06/19 23:00 109 18 113/75 (88) 100 01/06/19 22:00 109 18 119/80 (93) 99 01/06/19 21:30 101 20 30 01/06/19 21:00 104 18 97/63 (74) 100 01/06/19 20:03 108 01/06/19 20:00 Mechanical Ventilator 01/06/19 20:00 98.9 105 17 114/83 (93) 100 01/06/19 20:00 30 01/06/19 19:30 106 19 30 01/06/19 19:00 101 18 113/86 (95) 100 01/06/19 18:00 104 16 116/84 (95) 100 01/06/19 17:20 105 21 30 01/06/19 17:00 98.8 104 18 116/67 (83) 100 Intake and Output 01/06/19 01/07/19 19:00 07:00 Intake Total 2519.250 ml 2435 ml Output Total 2405 ml 3670 ml Balance 114.250 ml -1235 ml Intake Free Water 200 ml IV Total 1659.250 ml 1615 ml Tube Feeding 660 ml 660 ml Other 160 ml Output Urine Total 2205 ml 3620 ml Stool Total 200 ml 50 ml Laboratory Tests 01/06/19 22:00: Vancomycin Level Trough 12.9H Height (Feet): 5 Height (Inches): 5.00 Weight (Pounds): 110 Objective General Appearance: moderate distress, Chronically Ill Head: normocephalic, atraumatic Eyes: bilateral eye normal inspection, bilateral eye PERRL ENT: dry mucus membranes, other - constant motor movement of lips and mough Neck: supple, tracheotomy/vent Respiratory: respiratory distress, rales, rhonci ++ trach/vent Cardiovascular: no edema, no JVD, tachycardia, 2+ radial (R) GI: ++ peg : other - Uncircumcised Musculoskeletal: other - Atrophy Neurologic: other - Not responding to exter with fasciculations of lips Psychiatric: other - Stupor Alok Thompson MD January 07, 2019 16:21
--- NOTE | 2019-01-07 17:13 | NUR ---
NURSE NOTES: Rectal tube was leaking, adjusted rectal tube, draining brown liquid stool. patient kept clean and dry. Family members at bedside.
--- NOTE | 2019-01-07 17:15 | Progress Note ---
DATE: 01/06/2019 SUBJECTIVE: The patient is awake, more alert than yesterday of his upper eyelids. intermittent opening of his eye. PHYSICAL EXAMINATION: VITAL SIGNS: Blood pressure 142/72, his pulse is 68, respirations are 18, and temperature 98.5. HEENT: Eyes were normal. ENT, mucous membranes were moist and intact. NECK: Supple with no JVD without lymph nodes. Tracheostomy site is clean. LUNGS: Clear without rhonchi, rales, or wheezing. Secretions are small, thin, and forte. HEART: Normal sounds with regular beats. There are no S3, S4, or pericardial rub. ABDOMEN: Soft and nontender with normal bowel sounds. Gastrostomy site is clean. EXTREMITIES: Warm without cyanosis, clubbing, or edema. LABORATORY AND DIAGNOSTIC DATA: His current laboratory test CBC, BMP His hemoglobin is 10.6, hematocrit 31.3 with MCV of 59, WBC of 9.7, and platelet of 210,000. His BUN and creatinine are 3 and 0.5 respectively. Sodium was , potassium 4.2, chloride 100, and CO2 was 27. IMPRESSION: The patient continue to progress slowly and progressively improved. Repeat laboratory tests will be done in the a.m. Klever Leung M.D. DR: SANDRA JOB#: [id number] CC:
--- NOTE | 2019-01-07 19:13 | NUR ---
HAND-OFF: Report given to ILA Baltazar.
--- NOTE | 2019-01-07 19:19 | NUR ---
RESPIRATORY NOTE: Patient received mechanically ventilated on PB 840 with current ordered vent settings. Patient has trach size 8.0 Shiley cuffed that is secured with trach tie and guard. There is an ambu bag available at the bedside and the vent is connected to a red outlet. Vent alarms are functional and audible. Patient appears comfortable at this time. Will continue to monitor.
--- NOTE | 2019-01-07 19:50 | NUR ---
NURSE NOTES: PATIENT LETHARGIC, NON VERBAL, OPEN EYES STATUS, ON TRACH TO VENT AC 16/TV 450/FIO2 30%/PEEP 5, O2 SATURATION 99% NOTED, ABDOMEN SOFT, NON TENDER, RECTAL TUBE INTACT, BROWN LIQUID STOOL OUTED, G TUBE INTACT AND PATENT, ONGOING JEVITY 1.2 AT 55ML/HR VIA G TUBE, NO RESIDUE NOTED, F/C INTACT AND PATENT YELLOW URINE OUTED, PERIPHERAL LINE TO LEFT FA 22G AND RIGHT WRIST 24G, D5W NS W/ KCL 20MEQ AT 75ML/HR VIA PERIPHERAL LINE, KEPT SZ PRECAUTION, ON P200 BED, ON SCD'S TO BOTH LOWER LEGS, MADE LOWER BED POSITION, KEPT HOB 30 DEGREE, PROVIDED CALL LIGHT WITHIN REACH, WILL CONTINUE TO MONITOR.
--- NOTE | 2019-01-07 21:04 | NUR ---
NURSE NOTES: GIVEN TYLENOL 650MG VIA G TUBE PRN FOR PAIN OF 3/10, WILL CONTINUE TO MONITOR.
--- NOTE | 2019-01-07 22:17 | NUR ---
NURSE NOTES: PT'S FAMILY VISITED, STAYED AT BED SIDE, PATIENT ASLEEP STATUS.
[2019-01-07] MEDS: VANCOMYCIN IVPB SCH (23:24)
[2019-01-07] MEDS: SODIUM CHLORIDE IVPB SCH (23:24)
--- NOTE | 2019-01-07 23:31 | Neurology Progress Note ---
Interim History Interim History ROS Limited/Unobtainable: Yes Complaints: NMDA Encephalitis Events: No seizure activity- no improvement in MS Objective Physical Exam Last Vital Signs Date Time Temp Pulse Resp B/P (MAP) Pulse Ox O2 Delivery O2 Flow Rate FiO2 01/07/19 23:11 95 17 30 01/07/19 22:00 111/81 (91) 99 01/07/19 20:00 Mechanical Ventilator 01/07/19 20:00 99.1 01/02/19 18:45 55.0 Laboratory Tests Test 01/07/19 22:10 Vancomycin Level Trough 13.5 ug/mL (5.0-12.0) H General: well developed, well nourished, no acute distress Head: normocophalic, atraumatic Neck: other Neurologic Exam Mental Status: other Cranial Nerve VII: other - Patient has fewer lip fasciculations today but LOC is not improved. Still triple flexing in LEs bilaterally with decerebrate posturing to UE stim. Pupils are 3+ and briskly reactive. Patient has tracheostomy on vent at this time. Impression/Recommendations Problems: (1) Seizure disorder (2) Sepsis (3) Pneumonia (4) Anti-NMDA receptor encephalitis (5) Chronic respiratory failure (6) S/P percutaneous endoscopic gastrostomy (PEG) tube placement (7) Status post tracheostomy Status: stable Recommendations EEG ordered LP ordered REORDERED LP : Please Test for : Glucose Protein Culture/Sensitivity Oligoclonal Bands Coccoides Anti NMDA antibody HSV Maintain normothermia Commence Broad spectrum Abx Na 135-145 Maintain normoglycemia IV Keppra 1g BID Check Keppra serum level 1-2mg Ativan for seizure activity PRN Record/ report all seizure activity. Q hr Neuro checks . Advisable to commence Rituxan DREA for induction phase x 2 weeks . If this treatment is not available at [facility], please transfer patient to higher level of care for this treatment. Consider [facility] ? Nell Bragg N.P. January 07, 2019 23:31
--- NOTE | 2019-01-07 23:40 | NUR ---
NURSE NOTES: NO PAIN OR SZ SIGN NOTED AT THIS TIME.
[2019-01-08] VITALS (24 sets, daily range): BP systolic 98–129; BP diastolic 55–90
--- NOTE | 2019-01-08 00:05 | NUR ---
NURSE NOTES: SEEN THE PATIENT BY DR. PIMENTEL.
--- NOTE | 2019-01-08 01:50 | NUR ---
NURSE NOTES: FOUND BLOODY DISCHARGE VIA TRACH THAT CALLED RT REGARDING CHECK TRACH. TRACH SITE CLEANED WITHOUT DISCHARGE, PATIENT BITE HIS LOWER LIP STATUS. ORAL CARE WAS DONE, WILL CONTINUE TO MONITOR.
--- NOTE | 2019-01-08 03:08 | NUR ---
RESPIRATORY NOTE: Answered a call from rn to check pt trach. Trach was fine and noted to rn. However there was oral bleeding noted from the pt biting the lower lip. Giovanny Ortega is fully aware of pt status. Rn joined me at bedside for this assessment.
--- NOTE | 2019-01-08 03:40 | NUR ---
NURSE NOTES: MORNING CARE WAS DONE, RECTAL TUBE INTACT AND PATENT, BROWN SOLID STOOL OUTED.
[2019-01-08 05:00] LABS: HEMOGLOBIN 12.3 G/DL (14.2-18.0); MEAN CORPUSCULAR VOLUME 90 FL (80-99); PLATELET COUNT 372 K/UL (150-450); RED BLOOD COUNT 3.99 M/UL (4.70-6.10); RED CELL DISTRIBUTION WIDTH 13.5 % (11.6-14.8); WHITE BLOOD COUNT 21.5 K/UL (4.8-10.8)
[2019-01-08] MEDS: LORazepam Inj 2mg/ml 1ml IV PRN ×2 (05:19→08:47)
--- NOTE | 2019-01-08 05:19 | NUR ---
NURSE NOTES: PATIENT OCCASIONALLY TWITCHING FACE AND BITING LOWER LIP AT THIS TIME THAT GIVEN ATIVAN 2MG BY IVP SLOWLY PRN ORDER, WILL CONTINUE TO MONITOR.
--- NOTE | 2019-01-08 05:20 | NUR ---
NURSE NOTES: CHANGED BITE BLOCK AT THIS TIME.
[2019-01-08 05:24] LABS: ANION GAP 10 mmol/L (5-15); BLOOD UREA NITROGEN 4 mg/dL (7-18); CALCIUM 9.2 MG/DL (8.5-10.1); CARBON DIOXIDE 27 MMOL/L (21-32); CHLORIDE 94 MMOL/L (98-107); CREATININE 0.6 MG/DL (0.55-1.30); POTASSIUM 4.1 MMOL/L (3.5-5.1); SODIUM 131 MMOL/L (136-145)
[2019-01-08] MEDS: SODIUM CHLORIDE IVPB SCH (06:30)
[2019-01-08] MEDS: VANCOMYCIN IVPB SCH (06:30)
--- NOTE | 2019-01-08 07:30 | NUR ---
HAND-OFF: Report given to ILA LAI.
--- NOTE | 2019-01-08 07:46 | NUR ---
RESPIRATORY NOTE: received pt on current vent settings, trach with size shiley 8, midline and patent. no resp distress noted at this time. alarms are set and audible with vent plugged into red outlet and ambu bag at bedside. will cont to monitor.
--- NOTE | 2019-01-08 08:00 | NUR ---
NURSE NOTES: Report received from ILA St[place]. patient awake, restless on trach and vent AC 16, VT 450 FIO2 30% and PEEP 5.Noted with low grade fever on cooling blanket. Rectal tube in place draining well brownish watery stool.Peripheral line LFA running D5NS w/20Kcl at 75cc/hr.Abdomen soft and non distended.On GT feeding.GT placement intact,residual 10cc, flush as tolerated.HOB elevated to prevent aspiration.Turned and repositioned.On P200 mattress with SCDs ,side rails pads for seizure precaution.Mouth care done.Call light within easy reach.Kept clean dry and comfortable.Will continue to monitor.
--- NOTE | 2019-01-08 08:15 | Progress Note ---
DATE: 01/07/2019 NOTE: POOR AUDIO SUBJECTIVE: The patient's viability is not questioned today as the patient is having multiple movements in the face, upper extremities, and lower extremities. PHYSICAL EXAMINATION: VITAL SIGNS: Blood pressure 118/85, his pulse is 94, respirations are 18, and temperature 97.8. HEENT: Eyes were normal. ENT, mucous membranes were moist and intact. NECK: Supple with no JVD without lymph nodes. Tracheostomy site is clean. LUNGS: Clear without rhonchi, rales, or wheezing. HEART: Normal sounds with regular beat. ABDOMEN: Soft and nontender with normal bowel sounds. Gastrostomy site is clean. EXTREMITIES: Warm without cyanosis, clubbing, or edema. LABORATORY DATA: His hemoglobin is 10.6, hematocrit 31.3 with MCV of 89, WBC of 9.7, and platelets are 210,000. His BUN and creatinine are 3 and 0.5 respectively. His sodium is 135, potassium 4.2, chloride 100, and CO2 is 27. SGOT and SGPT are normal. Albumin is 2.5 and total protein is 7.2. His culture showed no growth after 24 hours. Blood culture is positive for Staph epidermidis. IMPRESSION AND PLAN: Four days ago, the patient had undergone EEG to ascertain the patient is viable or not clear cut. Today, the patient is viable without an EEG. In addition, the patient is planned to undergo spinal tap was not explained by the note. I doubt the patient can tolerate spinal tap in his current condition. the patient cannot lie down with the face down. Repeat laboratory tests will be done in a.m. Klever Leung M.D. DR: ISAAC JOB#: [id number] CC:
[2019-01-08] MEDS: Cefepime HCl 1 GM in D5W 55 ML IVPB SCH (08:45)
[2019-01-08] MEDS: Vancomycin oral 125mg/2.5ml ORAL SCH ×4 (08:46→21:36)
[2019-01-08] MEDS: Acetaminophen 650mg/20.3ml GT PRN (08:46)
[2019-01-08] MEDS: Phenytoin 1,000 MG in NS 275 ML IVPB SCH ×2 (08:47→21:36)
[2019-01-08] MEDS: Pantoprazole Inj IVP SCH (08:47)
[2019-01-08] MEDS: levETIRAcetam 500mg/5ml Liquid GT SCH ×2 (08:48→21:37)
[2019-01-08] MEDS: Heparin 5000 units/ml inj SUBQ SCH ×2 (08:52→21:38)
[2019-01-08] MEDS ORDERED: Tubing IV Secondary IV ONE ×2 (09:33→09:41)
[2019-01-08] MEDS ORDERED: NS 275ml ONE ×4 (09:33→13:27)
--- NOTE | 2019-01-08 10:04 | NUR ---
NURSE NOTES: Turned and repositioned.No episode seizure noted at this time.All AM meds given,will continue to monitor.
--- NOTE | 2019-01-08 10:29 | Pulmonolgy Critical Care Note ---
Critical Care - Asmt/Plan Problems: (1) Sepsis (2) Pneumonia (3) Anti-NMDA receptor encephalitis (4) Chronic respiratory failure (5) S/P percutaneous endoscopic gastrostomy (PEG) tube placement Respiratory: monitor respiratory rate, adjust FIO2, CXR Cardiac: continue pressors, continue to monitor HR/BP Renal: F/U I&O, keep IV fluid, check electrolytes Infectious Disease: check cultures Gastrointestinal: continue feedings/current rate, hold feedings Endocrine: monitor blood sugar, check TSH Hematologic: monitor H/H, transfuse if hgb<8.5 Neurologic: PRN Ativan, PRN Morphine, keep patient comfortable Prophylaxis: Protonix, Heparin Disposition: keep in ICU 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, 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 Discussed with: nurses, consultants, rehabilitation caseworkercompliance manager - Objective Last 24 Hour Vital Signs Date Time Temp Pulse Resp B/P (MAP) Pulse Ox O2 Delivery O2 Flow Rate FiO2 01/08/19 08:46 119 27 30 01/08/19 08:00 Mechanical Ventilator 01/08/19 08:00 99.1 123 22 123/77 (92) 99 01/08/19 08:00 30 01/08/19 07:43 115 27 30 01/08/19 07:00 115 24 126/90 (102) 95 01/08/19 06:00 114 22 113/89 (97) 99 01/08/19 05:10 113 20 30 01/08/19 05:00 112 23 125/88 (100) 100 01/08/19 04:00 Mechanical Ventilator 01/08/19 04:00 30 01/08/19 04:00 98.7 113 22 129/90 (103) 98 01/08/19 03:06 114 26 30 01/08/19 03:00 118 23 120/81 (94) 98 01/08/19 02:52 119 01/08/19 02:00 110 25 119/82 (94) 99 01/08/19 01:19 106 20 30 01/08/19 01:00 109 19 114/83 (93) 100 01/08/19 00:00 97.8 94 16 102/74 (83) 99 01/08/19 00:00 Mechanical Ventilator 01/08/19 00:00 30 01/07/19 23:15 97 01/07/19 23:11 95 17 30 01/07/19 23:00 94 18 118/85 (96) 98 01/07/19 22:00 97 18 111/81 (91) 99 01/07/19 21:00 112 19 139/89 (106) 100 01/07/19 20:46 126 26 30 01/07/19 20:00 Mechanical Ventilator 01/07/19 20:00 30 01/07/19 20:00 99.1 118 19 122/82 (95) 99 01/07/19 19:37 115 01/07/19 19:16 114 17 30 01/07/19 19:00 106 19 118/74 (89) 98 01/07/19 18:00 110 19 124/87 (99) 100 01/07/19 17:00 106 18 120/84 (96) 100 01/07/19 16:54 105 22 30 01/07/19 16:00 30 01/07/19 16:00 97.5 104 17 118/88 (98) 100 01/07/19 16:00 102 01/07/19 16:00 Mechanical Ventilator 01/07/19 15:18 106 24 30 01/07/19 15:00 107 22 123/94 (104) 100 01/07/19 14:00 107 19 115/79 (91) 100 01/07/19 13:00 108 18 118/77 (91) 100 01/07/19 12:54 107 16 30 01/07/19 12:00 107 01/07/19 12:00 Mechanical Ventilator 01/07/19 12:00 97.8 111 17 127/88 (101) 100 01/07/19 12:00 30 01/07/19 11:00 106 18 124/97 (106) 97 01/07/19 10:55 104 16 30 Status: awake Condition: critical HEENT: atraumatic Neck: full ROM Lungs: chest wall tender Heart: HR/BP stable Abdomen: soft, active bowel sounds Extremities: no C/C/E Micro: Microbiology Date/Time Source Procedure Growth Status 01/05/19 21:25 Blood Blood Culture - Preliminary NO GROWTH AFTER 48 HOURS Resulted 01/05/19 21:20 Blood Blood Culture - Preliminary NO GROWTH AFTER 48 HOURS Resulted 01/05/19 21:25 Sputum Gram Stain - Final Resulted 01/05/19 21:25 Sputum Culture - Preliminary Gram Negative Bacillus 1 Resulted Critical Care - Subjective ROS Limited/Unobtainable: Yes Condition: critical EKG Rhythm: Sinus Rhythm FI02: 30 Vent Support Breath Rate: 16 Vent Support Mode: AC Vent Tidal Volume: 450 Sputum Amount: Small PEEP: 5.0 PIP: 16 Tube Feeding Amount: 55 I&O: Intake and Output 01/07/19 01/08/19 19:00 07:00 Intake Total 2480 ml 3015 ml Output Total 2600 ml 3230 ml Balance -120 ml -215 ml Intake Free Water 250 ml IV Total 1570 ml 2235 ml Tube Feeding 660 ml 660 ml Other 120 ml Output Urine Total 2400 ml 3180 ml Stool Total 200 ml 50 ml Labs: Laboratory Tests Test 01/07/19 22:10 01/08/19 03:45 Vancomycin Level Trough 13.5 ug/mL (5.0-12.0) H White Blood Count 21.5 K/UL (4.8-10.8) H Red Blood Count 3.99 M/UL (4.70-6.10) L Hemoglobin 12.3 G/DL (14.2-18.0) L Hematocrit 36.0 % (42.0-52.0) L Mean Corpuscular Volume 90 FL (80-99) Mean Corpuscular Hemoglobin 30.8 PG (27.0-31.0) Mean Corpuscular Hemoglobin Concent 34.2 G/DL (32.0-36.0) Red Cell Distribution Width 13.5 % (11.6-14.8) Platelet Count 372 K/UL (150-450) Mean Platelet Volume 4.8 FL (6.5-10.1) L Neutrophils (%) (Auto) % (45.0-75.0) Lymphocytes (%) (Auto) % (20.0-45.0) Monocytes (%) (Auto) % (1.0-10.0) Eosinophils (%) (Auto) % (0.0-3.0) Basophils (%) (Auto) % (0.0-2.0) Differential Total Cells Counted 100 Neutrophils % (Manual) 78 % (45-75) H Lymphocytes % (Manual) 17 % (20-45) L Monocytes % (Manual) 5 % (1-10) Eosinophils % (Manual) 0 % (0-3) Basophils % (Manual) 0 % (0-2) Band Neutrophils 0 % (0-8) Platelet Estimate Adequate Platelet Morphology Normal Red Blood Cell Morphology Normal Sodium Level 131 MMOL/L (136-145) L Potassium Level 4.1 MMOL/L (3.5-5.1) Chloride Level 94 MMOL/L (98-107) L Carbon Dioxide Level 27 MMOL/L (21-32) Anion Gap 10 mmol/L (5-15) Blood Urea Nitrogen 4 mg/dL (7-18) L Creatinine 0.6 MG/DL (0.55-1.30) Estimat Glomerular Filtration Rate > 60 mL/min (>60) Glucose Level 273 MG/DL (74-106) H Calcium Level 9.2 MG/DL (8.5-10.1) Babita Hardy MD January 08, 2019 10:29
[2019-01-08] MEDS ORDERED: NS 500ML ONE ×2 (11:19→13:27)
[2019-01-08] MEDS ORDERED: Sterile Water Irrig 1000ml IRRIG ONE ×2 (11:19→13:27)
--- NOTE | 2019-01-08 11:31 | NUR ---
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 RESPIRATORY FAILURE VS: BP 108/78, P 119, T 98.8, RR 27, SpO2 100 on VENT AC 16, TV 450, PEEP 5.0, FiO2 30 WBC 21.5, RBC 3.99, Hgb 12.3, Hct 36.0, Na 131, BUN 4 IS:HEPARIN SUBQ KEPPRA 1,000mg PROTONIX 40mg IVP PHENYTOIN 295ml IVPB VANCOMYCIN 125mg CEFEPIME HCI 55ml IVPB D5/ELECTROLYTES x1L IV ICU STATUS
--- NOTE | 2019-01-08 12:32 | NUR ---
NURSE NOTES: Patient turned and repositioned.Patient suctioned and mouth care provided.Kept clean and dry.HOB elevated to prevent aspiration.Kept clean dry and comfortable
[2019-01-08] MEDS: Vancomycin 1.25gm Premix IVPB SCH ×2 (12:42→17:21)
--- NOTE | 2019-01-08 13:57 | Infectious Diseases Prog Note ---
Assessment/Plan Assessment/Plan The patient is a 23-year-old male with leukocytosis, increased -01/06 u/a neg -sp cx GNR; 01/05 CXR no acute disease blood culture, CoNS ? 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 Thrombocytopenia. Seizure disorder History of recent seizure x1 year. 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 PLAN: Cont oral Vanco d# 4 ( empirically as wbc increased ) Switch empiric cefepime #6 to Meropenem given increased in WBC Continue empiric IV Vancomycin d# 6/7 Repeat blood culture Sputum culture ( delayed , despite of being ordered on 01/03) Urine culture ( delayed , despite of being ordered on 01/03) Monitor CBC and BMP f/u 2DEcho cooling blanket CXR am Subjective Allergies: Coded Allergies: No Known Allergies (Unverified , 01/02/19) Subjective afebrile in 72hs wbc increased Objective Vital Signs Last 24 Hour Vital Signs Date Time Temp Pulse Resp B/P (MAP) Pulse Ox O2 Delivery O2 Flow Rate FiO2 01/08/19 12:47 105 17 30 01/08/19 12:00 98 01/08/19 12:00 104 24 108/76 (87) 100 01/08/19 12:00 30 01/08/19 12:00 Mechanical Ventilator 01/08/19 11:00 100 24 108/78 (88) 100 01/08/19 10:36 103 16 30 01/08/19 10:00 101 26 101/77 (85) 100 01/08/19 09:16 98.8 01/08/19 09:00 101 24 129/73 (91) 95 01/08/19 08:46 119 27 30 01/08/19 08:00 Mechanical Ventilator 01/08/19 08:00 99.1 123 22 123/77 (92) 99 01/08/19 08:00 30 01/08/19 08:00 122 01/08/19 07:43 115 27 30 01/08/19 07:00 115 24 126/90 (102) 95 01/08/19 06:00 114 22 113/89 (97) 99 01/08/19 05:10 113 20 30 01/08/19 05:00 112 23 125/88 (100) 100 01/08/19 04:00 Mechanical Ventilator 01/08/19 04:00 30 01/08/19 04:00 98.7 113 22 129/90 (103) 98 01/08/19 03:06 114 26 30 01/08/19 03:00 118 23 120/81 (94) 98 01/08/19 02:52 119 01/08/19 02:00 110 25 119/82 (94) 99 01/08/19 01:19 106 20 30 01/08/19 01:00 109 19 114/83 (93) 100 01/08/19 00:00 97.8 94 16 102/74 (83) 99 01/08/19 00:00 Mechanical Ventilator 01/08/19 00:00 30 01/07/19 23:15 97 01/07/19 23:11 95 17 30 01/07/19 23:00 94 18 118/85 (96) 98 01/07/19 22:00 97 18 111/81 (91) 99 01/07/19 21:00 112 19 139/89 (106) 100 01/07/19 20:46 126 26 30 01/07/19 20:00 Mechanical Ventilator 01/07/19 20:00 30 01/07/19 20:00 99.1 118 19 122/82 (95) 99 01/07/19 19:37 115 01/07/19 19:16 114 17 30 01/07/19 19:00 106 19 118/74 (89) 98 01/07/19 18:00 110 19 124/87 (99) 100 01/07/19 17:00 106 18 120/84 (96) 100 01/07/19 16:54 105 22 30 01/07/19 16:00 30 01/07/19 16:00 97.5 104 17 118/88 (98) 100 01/07/19 16:00 102 01/07/19 16:00 Mechanical Ventilator 01/07/19 15:18 106 24 30 01/07/19 15:00 107 22 123/94 (104) 100 01/07/19 14:00 107 19 115/79 (91) 100 Height (Feet): 5 Height (Inches): 5.00 Weight (Pounds): 111 Objective Status: awake Condition: critical HEENT: atraumatic Neck: full ROM Lungs: chest wall tender Heart: HR/BP stable Abdomen: soft, active bowel sounds Extremities: no C/C/E Microbiology Date/Time Source Procedure Growth Status 01/05/19 21:25 Blood Blood Culture - Preliminary NO GROWTH AFTER 48 HOURS Resulted 01/05/19 21:20 Blood Blood Culture - Preliminary NO GROWTH AFTER 48 HOURS Resulted 01/05/19 21:25 Sputum Gram Stain - Final Resulted 01/05/19 21:25 Sputum Culture - Preliminary Gram Negative Bacillus 1 Resulted Laboratory Tests Test 01/07/19 22:10 01/08/19 03:45 Vancomycin Level Trough 13.5 ug/mL (5.0-12.0) H White Blood Count 21.5 K/UL (4.8-10.8) H Red Blood Count 3.99 M/UL (4.70-6.10) L Hemoglobin 12.3 G/DL (14.2-18.0) L Hematocrit 36.0 % (42.0-52.0) L Mean Corpuscular Volume 90 FL (80-99) Mean Corpuscular Hemoglobin 30.8 PG (27.0-31.0) Mean Corpuscular Hemoglobin Concent 34.2 G/DL (32.0-36.0) Red Cell Distribution Width 13.5 % (11.6-14.8) Platelet Count 372 K/UL (150-450) Mean Platelet Volume 4.8 FL (6.5-10.1) L Neutrophils (%) (Auto) % (45.0-75.0) Lymphocytes (%) (Auto) % (20.0-45.0) Monocytes (%) (Auto) % (1.0-10.0) Eosinophils (%) (Auto) % (0.0-3.0) Basophils (%) (Auto) % (0.0-2.0) Differential Total Cells Counted 100 Neutrophils % (Manual) 78 % (45-75) H Lymphocytes % (Manual) 17 % (20-45) L Monocytes % (Manual) 5 % (1-10) Eosinophils % (Manual) 0 % (0-3) Basophils % (Manual) 0 % (0-2) Band Neutrophils 0 % (0-8) Platelet Estimate Adequate Platelet Morphology Normal Red Blood Cell Morphology Normal Sodium Level 131 MMOL/L (136-145) L Potassium Level 4.1 MMOL/L (3.5-5.1) Chloride Level 94 MMOL/L (98-107) L Carbon Dioxide Level 27 MMOL/L (21-32) Anion Gap 10 mmol/L (5-15) Blood Urea Nitrogen 4 mg/dL (7-18) L Creatinine 0.6 MG/DL (0.55-1.30) Estimat Glomerular Filtration Rate > 60 mL/min (>60) Glucose Level 273 MG/DL (74-106) H Calcium Level 9.2 MG/DL (8.5-10.1) Current Medications Medications (Trade) Dose Ordered Sig/Cassidy Route PRN Reason Start Time Stop Time Status Last Admin Dose Admin Acetaminophen (Tylenol) 650 mg Q4H PRN GT Mild Pain/Temp > 100.5 01/03/19 14:00 02/02/19 13:59 01/08/19 08:46 Cefepime HCl 1 gm/ Dextrose 55 ml @ 110 mls/hr EVERY 12 HOURS IVPB 01/03/19 23:00 01/10/19 22:59 01/08/19 08:45 Dextrose/ Electrolytes 1,000 ml @ 75 mls/hr [id number] IV 01/05/19 14:27 02/04/19 14:26 01/08/19 05:07 Heparin Sodium (Porcine) (Heparin 5000 units/ml) 5,000 units EVERY 12 HOURS SUBQ 01/02/19 21:00 02/01/19 20:59 01/08/19 08:52 Levetiracetam (Keppra) 1,000 mg Q12HR GT 01/03/19 21:00 02/02/19 08:59 01/08/19 08:48 Lorazepam (Ativan 2mg/ml 1ml) 2 mg Q1H PRN IV FOr seizure 01/04/19 22:30 01/11/19 22:29 01/08/19 08:47 Pantoprazole (Protonix) 40 mg DAILY IVP 01/03/19 09:00 02/02/19 08:59 01/08/19 08:47 Phenytoin 1000 mg/ Sodium Chloride 295 ml @ 295 mls/hr Q12HR IVPB 01/04/19 21:45 02/03/19 21:44 01/08/19 08:47 Vancomycin HCl (Firvanq) 125 mg FOUR TIMES A DAY ORAL 01/05/19 21:00 01/12/19 20:59 01/08/19 12:42 Vancomycin HCl (Vanco rx to dose) 1 ea DAILY PRN MISC Per rx protocol 01/03/19 20:30 02/02/19 20:29 Vancomycin HCl/ Dextrose 275 ml @ 183.333 mls/hr Q6HR IVPB 01/08/19 12:00 01/13/19 11:59 01/08/19 12:42 Nicky Gautam M.D. January 08, 2019 13:57
--- NOTE | 2019-01-08 14:02 | NUR ---
NURSE NOTES: ASLEEP,NO EPISODE SEIZURE.TURNED AND REPOSITIONED.KEPT CLEAN DRY AND COMFORTABLE
--- NOTE | 2019-01-08 16:08 | NUR ---
NURSE NOTES: FAMILY VISITED AND UPDATE GIVEN.MOUTH CARE DONE.TURNED AND REPOSITIONED.HOB ELEVATED TO PREVENT ASPIRATION.WILL CONTINUE TO MONITOR
--- NOTE | 2019-01-08 17:00 | NUR ---
Social Service Note SW met with patient's mother and assisted with completion of forms to request extended time off form her employer under FMLA. Will continue to follow up.
[2019-01-08] MEDS: Meropenem 1 GM in NS 55 ML IVPB SCH ×2 (17:21→22:37)
--- NOTE | 2019-01-08 17:31 | General Progress Note ---
Assessment/Plan Status: stable Assessment/Plan: Assessment and Recs: # Anemia of chronic disease due to underlying chronic medical issues, multifactorial --> Anemia workup has been reviewed, no dory noted --> No evidence of hemolysis is noted, peripheral smear has been reviewed. --> Hgb goal >7. Transfuse prn. --> Epogen or iron at this time is not particularly indicated --> Medications have been reviewed --> evaluate with Gi team prn --> transfuse if hgb is < 7 (will trend CBC daily) --> ferritin is 378, tibc is 201 => hgb trend 10.4-->10.3-->10.6-->22k # Thrombocytopenia - potential causes multifactorial, evaluate liver and viral etiologies to begin, also could be related to underlying medications patient has received. --> Hep panel and HIV is negative --> US abd shows borderline splenomegaly --> Peripheral smear ordered to evaluate for blasts /schistocytes and none noted --> abx and other meds have been reviewed --> ok for ppx if plt >50k w/ either heparin or lovenox --> Trend 130k-->121k-->372k # Leukocytosis with cxr showing left infitrate, cmp is unremarkable, initial lactate elevated --> peripheral smear reviewed --> wbc trend 12-->9 # Sepsis r/o undelrying infection --> on abx, as per id # Pneumonia on abx # Anti-NMDA rec # h/o seizures. --> Valproic acid level undetected. No tonic/clonic seizure activity and Keppra had been given --> per neuro # Respiratory with vent/trach --> as per Antony santos # Dysphagia s/p peg The timing of this note does not necessarily reflect the time of the patient was seen. Greatly appreciate consultation! Subjective Constitutional: Denies: no symptoms, chills, diaphoresis, fever, malaise, weakness, other HEENT: Denies: no symptoms, eye pain, blurred vision, tearing, double vision, ear pain, ear discharge, nose pain, nose congestion, throat pain, throat swelling, mouth pain, mouth swelling, other Cardiovascular: Denies: no symptoms, chest pain, edema, irregular heart rate, lightheadedness, palpitations, syncope, other Respiratory: Denies: no symptoms, cough, orthopnea, shortness of breath, SOB with excertion, SOB at rest, sputum, stridor, wheezing, other Gastrointestinal/Abdominal: Denies: no symptoms, abdomen distended, abdominal pain, black stools, tarry stools, blood in stool, constipated, diarrhea, difficulty swallowing, nausea, poor appetite, poor fluid intake, rectal bleeding , vomiting, other Genitourinary: Denies: no symptoms, burning, discharge, frequency, flank pain, hematuria, incontinence, pain, urgency, other Neurologic/Psychiatric: Denies: no symptoms, anxiety, depressed, emotional problems, headache, numbness, paresthesia, pre-existing deficit, seizure, tingling, tremors, weakness, other Allergies: Coded Allergies: No Known Allergies (Unverified , 01/02/19) Subjective 5/2: remains in the icu, no f/c, no night sweats, remains on abx 5/3: in icu, remains on trach/vent, no sig bleeding 5: no events noted, no f/c, on trach/vent, remains in the icu 5: no events to reported, turned, on vent Objective Last 24 Hour Vital Signs Date Time Temp Pulse Resp B/P (MAP) Pulse Ox O2 Delivery O2 Flow Rate FiO2 01/08/19 17:11 103 20 30 01/08/19 17:00 103 17 107/75 (86) 100 01/08/19 16:00 98.0 105 20 98/60 (73) 100 01/08/19 16:00 97 01/08/19 16:00 Mechanical Ventilator 01/08/19 16:00 30 01/08/19 15:00 99 17 105/69 (81) 100 01/08/19 14:46 101 19 30 01/08/19 14:00 100 16 109/71 (84) 100 01/08/19 13:00 103 17 105/66 (79) 100 01/08/19 12:47 105 17 30 01/08/19 12:00 98 01/08/19 12:00 98.1 104 24 108/76 (87) 100 01/08/19 12:00 30 01/08/19 12:00 Mechanical Ventilator 01/08/19 11:00 100 24 108/78 (88) 100 01/08/19 10:36 103 16 30 01/08/19 10:00 101 26 101/77 (85) 100 01/08/19 09:16 98.8 01/08/19 09:00 101 24 129/73 (91) 95 01/08/19 08:46 119 27 30 01/08/19 08:00 Mechanical Ventilator 01/08/19 08:00 99.1 123 22 123/77 (92) 99 01/08/19 08:00 30 01/08/19 08:00 122 01/08/19 07:43 115 27 30 01/08/19 07:00 115 24 126/90 (102) 95 01/08/19 06:00 114 22 113/89 (97) 99 01/08/19 05:10 113 20 30 01/08/19 05:00 112 23 125/88 (100) 100 01/08/19 04:00 Mechanical Ventilator 01/08/19 04:00 30 01/08/19 04:00 98.7 113 22 129/90 (103) 98 01/08/19 03:06 114 26 30 01/08/19 03:00 118 23 120/81 (94) 98 01/08/19 02:52 119 01/08/19 02:00 110 25 119/82 (94) 99 01/08/19 01:19 106 20 30 01/08/19 01:00 109 19 114/83 (93) 100 01/08/19 00:00 97.8 94 16 102/74 (83) 99 01/08/19 00:00 Mechanical Ventilator 01/08/19 00:00 30 01/07/19 23:15 97 01/07/19 23:11 95 17 30 01/07/19 23:00 94 18 118/85 (96) 98 01/07/19 22:00 97 18 111/81 (91) 99 01/07/19 21:00 112 19 139/89 (106) 100 01/07/19 20:46 126 26 30 01/07/19 20:00 Mechanical Ventilator 01/07/19 20:00 30 01/07/19 20:00 99.1 118 19 122/82 (95) 99 01/07/19 19:37 115 01/07/19 19:16 114 17 30 01/07/19 19:00 106 19 118/74 (89) 98 01/07/19 18:00 110 19 124/87 (99) 100 Intake and Output 01/07/19 01/08/19 19:00 07:00 Intake Total 2480 ml 3015 ml Output Total 2600 ml 3230 ml Balance -120 ml -215 ml Intake Free Water 250 ml IV Total 1570 ml 2235 ml Tube Feeding 660 ml 660 ml Other 120 ml Output Urine Total 2400 ml 3180 ml Stool Total 200 ml 50 ml Laboratory Tests 01/07/19 22:10: Vancomycin Level Trough 13.5H 01/08/19 03:45: White Blood Count 21.5H, Red Blood Count 3.99L, Hemoglobin 12.3L, Hematocrit 36.0L, Mean Corpuscular Volume 90, Mean Corpuscular Hemoglobin 30.8, Mean Corpuscular Hemoglobin Concent 34.2, Red Cell Distribution Width 13.5, Platelet Count 372, Mean Platelet Volume 4.8L, Neutrophils (%) (Auto) , Lymphocytes (%) ( Auto) , Monocytes (%) (Auto) , Eosinophils (%) (Auto) , Basophils (%) (Auto) , Differential Total Cells Counted 100, Neutrophils % (Manual) 78H, Lymphocytes % (Manual) 17L, Monocytes % (Manual) 5, Eosinophils % (Manual) 0, Basophils % ( Manual) 0, Band Neutrophils 0, Platelet Estimate Adequate, Platelet Morphology Normal, Red Blood Cell Morphology Normal, Sodium Level 131L, Potassium Level 4.1 , Chloride Level 94L, Carbon Dioxide Level 27, Anion Gap 10, Blood Urea Nitrogen 4L, Creatinine 0.6, Estimat Glomerular Filtration Rate > 60, Glucose Level 273H, Calcium Level 9.2 Height (Feet): 5 Height (Inches): 5.00 Weight (Pounds): 111 Objective General Appearance: moderate distress, Chronically Ill Head: normocephalic, atraumatic Eyes: bilateral eye normal inspection, bilateral eye PERRL ENT: dry mucus membranes, other - constant motor movement of lips and mough Neck: supple, tracheotomy/vent Respiratory: respiratory distress, rales, rhonci ++ trach/vent Cardiovascular: no edema, no JVD, tachycardia, 2+ radial (R) GI: ++ peg : other - Uncircumcised Musculoskeletal: other - Atrophy Neurologic: other - Not responding to exter with fasciculations of lips Psychiatric: other - Stupor Alok Thompson MD January 08, 2019 17:31
--- NOTE | 2019-01-08 18:01 | NUR ---
NURSE NOTES: ADLs done,mouth care provided.patient suctioned as tolerated.HOB elevated at 35 degree to prevent aspiration.Call light within easy reach.Will continue to monitor.Ongoing EEG.
--- NOTE | 2019-01-08 19:08 | NUR ---
HAND-OFF: Report given to ILA David.
--- NOTE | 2019-01-08 20:00 | NUR ---
NURSE NOTES: pt nan verbal orally intubated -vent with o2 sat 100 o/o moving upper extremities withintermitent tremors open eyes to touch but does not follows command iv site good and infusing well reposition and suction eeg done and tolerated well
--- NOTE | 2019-01-08 21:53 | Neurology Progress Note ---
Interim History Interim History ROS Limited/Unobtainable: Yes Complaints: NMDA Encephalitis Events: Fewer Facial Movements today Review of Systems All Systems: reviewed and negative except above Objective Physical Exam Last Vital Signs Date Time Temp Pulse Resp B/P (MAP) Pulse Ox O2 Delivery O2 Flow Rate FiO2 01/08/19 21:04 102 20 30 30 01/08/19 19:00 105/55 (72) 100 01/08/19 16:00 98.0 01/08/19 16:00 Mechanical Ventilator 01/02/19 18:45 55.0 Laboratory Tests Test 01/07/19 22:10 01/08/19 03:45 Vancomycin Level Trough 13.5 ug/mL (5.0-12.0) H White Blood Count 21.5 K/UL (4.8-10.8) H Red Blood Count 3.99 M/UL (4.70-6.10) L Hemoglobin 12.3 G/DL (14.2-18.0) L Hematocrit 36.0 % (42.0-52.0) L Mean Corpuscular Volume 90 FL (80-99) Mean Corpuscular Hemoglobin 30.8 PG (27.0-31.0) Mean Corpuscular Hemoglobin Concent 34.2 G/DL (32.0-36.0) Red Cell Distribution Width 13.5 % (11.6-14.8) Platelet Count 372 K/UL (150-450) Mean Platelet Volume 4.8 FL (6.5-10.1) L Neutrophils (%) (Auto) % (45.0-75.0) Lymphocytes (%) (Auto) % (20.0-45.0) Monocytes (%) (Auto) % (1.0-10.0) Eosinophils (%) (Auto) % (0.0-3.0) Basophils (%) (Auto) % (0.0-2.0) Differential Total Cells Counted 100 Neutrophils % (Manual) 78 % (45-75) H Lymphocytes % (Manual) 17 % (20-45) L Monocytes % (Manual) 5 % (1-10) Eosinophils % (Manual) 0 % (0-3) Basophils % (Manual) 0 % (0-2) Band Neutrophils 0 % (0-8) Platelet Estimate Adequate Platelet Morphology Normal Red Blood Cell Morphology Normal Sodium Level 131 MMOL/L (136-145) L Potassium Level 4.1 MMOL/L (3.5-5.1) Chloride Level 94 MMOL/L (98-107) L Carbon Dioxide Level 27 MMOL/L (21-32) Anion Gap 10 mmol/L (5-15) Blood Urea Nitrogen 4 mg/dL (7-18) L Creatinine 0.6 MG/DL (0.55-1.30) Estimat Glomerular Filtration Rate > 60 mL/min (>60) Glucose Level 273 MG/DL (74-106) H Calcium Level 9.2 MG/DL (8.5-10.1) General: other Head: other Neck: other Neurologic Exam Mental Status: other Speech: other Language: other Cranial Nerve II: other Cranial Nerves III, IV, : other Cranial Nerve V: other Cranial Nerve VII: other Cranial Nerve VIII: other Cranial Nerve IX: other Cranial Nerve XI: other Cranial Nerve XII: other Motor System: other Sensory: other Coordination: other - Eyes opening intermittently without tracking to noxious stimuli. Decerebrate posturing in UEs to noxious stim. Triple flexing in LEs to stim. Pupils briskly reactive. Gag intact to trach suction. Impression/Recommendations Problems: (1) Seizure disorder (2) Sepsis (3) Anti-NMDA receptor encephalitis (4) Chronic respiratory failure (5) Status post tracheostomy (6) S/P percutaneous endoscopic gastrostomy (PEG) tube placement Status: stable Recommendations EEG ordered LP ordered Test for : Glucose Protein Culture/Sensitivity Oligoclonal Bands Coccoides Anti NMDA antibody HSV Maintain normothermia Commence Broad spectrum Abx Na 135-145 Maintain normoglycemia 1g Phenytoin now and then BID to continue 1-2mg Ativan Q1-2 hrs PRN for seizure activity. IV Keppra 1g BID Check Keppra serum level Record/ report all seizure activity. Q hr Neuro checks . Advisable to commence Rituxan DREA for induction phase x 2 weeks . Nell Bragg N.P. January 08, 2019 21:53
--- NOTE | 2019-01-08 22:00 | NUR ---
NURSE NOTES: : reposition and suction mother at bedside visiting
[2019-01-09] VITALS (25 sets, daily range): BP systolic 91–128; BP diastolic 55–95
--- NOTE | 2019-01-09 | NUR ---
NURSE NOTES: family at bedside no acute distress noted
--- NOTE | 2019-01-09 | NUR ---
dr gomez seen pt with order made reposetion and suction
[2019-01-09] MEDS: Vancomycin 1.25gm Premix IVPB SCH ×4 (00:35→18:31)
--- NOTE | 2019-01-09 02:00 | NUR ---
NURSE NOTES: reposition and suction tolerating tube feeding
--- NOTE | 2019-01-09 02:00 | NUR ---
NURSE NOTES: complete bed bath wound care done oral care done
--- NOTE | 2019-01-09 04:00 | NUR ---
NURSE NOTES: sleeping at interval temp 99.8 cooling blanket on reposition and suction
[2019-01-09 05:30] LABS: HEMATOCRIT 34.2 % (42.0-52.0); HEMOGLOBIN 11.6 G/DL (14.2-18.0); MEAN CORPUSCULAR VOLUME 89 FL (80-99); PLATELET COUNT 343 K/UL (150-450); RED BLOOD COUNT 3.84 M/UL (4.70-6.10); RED CELL DISTRIBUTION WIDTH 13.7 % (11.6-14.8); WHITE BLOOD COUNT 21.5 K/UL (4.8-10.8)
[2019-01-09 05:48] LABS: PHOSPHORUS 3.2 MG/DL (2.5-4.9)
[2019-01-09 05:59] LABS: ALANINE AMINOTRANSFERASE 25 U/L (12-78); ALBUMIN 2.8 G/DL (3.4-5.0); ALBUMIN/GLOBULIN RATIO 0.6 (1.0-2.7); ALKALINE PHOSPHATASE 94 U/L (46-116); ANION GAP 8 mmol/L (5-15); ASPARTATE AMINO TRANSFERASE 16 U/L (15-37); BILIRUBIN,TOTAL 0.4 MG/DL (0.2-1.0); BLOOD UREA NITROGEN 4 mg/dL (7-18); CALCIUM 8.6 MG/DL (8.5-10.1); CARBON DIOXIDE 29 MMOL/L (21-32); CHLORIDE 93 MMOL/L (98-107); CREATININE 0.6 MG/DL (0.55-1.30); POTASSIUM 3.9 MMOL/L (3.5-5.1); SODIUM 130 MMOL/L (136-145)
--- NOTE | 2019-01-09 05:59 | NUR ---
Pt. vent dependent on AC16/ vt450/ peep 5/fio2.35 with a size 8.0 shiley secured and patent. Trach care performed drain sponge, inner canula, trach ties changed. Vent settings and alarms have been checked will continue to monitor closely.
--- NOTE | 2019-01-09 07:00 | NUR ---
Received Patient on ACVC RR 16, VT 450, FIO2 30%, PEEP +5. Patient has a Shiley 8 tracheostomy tube, secured with trache ties. Breath sounds reveal bilateral rhonchi. Suction minimal white, clear secretions as needed. Vent plugged into red outlet. Alarms on and audible. Will continue to monitor thought the day.
--- NOTE | 2019-01-09 07:00 | NUR ---
HAND-OFF: Report given to ani rn. using sbar
[2019-01-09] MEDS: Meropenem 1 GM in NS 55 ML IVPB SCH (07:06)
--- NOTE | 2019-01-09 08:00 | NUR ---
NURSE NOTES: Patient opens eyes, involuntary marcin-like repetative movements. awake overnight monitor showing ST HR 101. Trach to vent dependent. Shiley 8 AC 16 VT 450 FiO2 30% Peep of 5. Patient has G tube, Jevity 1.2 at 55 cc/hr. No residual noted. P200 mattress intact no skin issues noted. L arm 20 R hand 20 NS with 20 KCL at 75 CC/hr. Hypoactive bowel sounds present. Lung sounds diminished bilaterally. Side rails padded for seizure precaution, bed alarm on for safety, bed on lowest position, hob elevated for aspiration precaution. No new orders at this time. Will continue to monitor patient.
--- NOTE | 2019-01-09 08:08 | NUR ---
QUALITY CONTROL ASSISTANTWEB SITE SPECIALIST SI: SEPSIS . RESPIRATORY FAILURE VS: BP 129/73, P 123, T 98.8, RR 27, SpO2 100 on VENT AC 16, TV 450, PEEP 5.0, FiO2 30 WBC 21.5, RBC 3.84, Hgb 11.6, Hct 34.2, Na 130, BUN 4 IS: HEPARIN SUBQ KEPPRA 1,000mg PROTONIX 40mg IVP PHENYTOIN 295ml IVPB VANCOMYCIN 125mg CEFEPIME HCI 55ml IVPB D5/ELECTROLYTES x1L IV MEROPENEM 55ml IVPB AMIKACIN SULFATE 113.28ml IV MAGNESIUM SULFATE 100ml IVPB ICU STATUS
--- NOTE | 2019-01-09 09:00 | NUR ---
NURSE NOTES: Patient turned and repositioned. No new orders at this time. Will continue to monitor patient. VSS
[2019-01-09] MEDS: Vancomycin oral 125mg/2.5ml ORAL SCH ×4 (09:03→21:00)
[2019-01-09] MEDS: Pantoprazole Inj IVP SCH (09:03)
[2019-01-09] MEDS: levETIRAcetam 500mg/5ml Liquid GT SCH ×2 (09:03→21:41)
[2019-01-09] MEDS: Heparin 5000 units/ml inj SUBQ SCH ×2 (09:04→21:52)
[2019-01-09] MEDS: Phenytoin 1,000 MG in NS 275 ML IVPB SCH ×2 (09:26→21:42)
--- NOTE | 2019-01-09 10:00 | NUR ---
NURSE NOTES: Patient BP in low 80s. Dr. Hardy aware. Bolus of 500 cc given per MD order. PICC line order obtained.
--- NOTE | 2019-01-09 10:09 | NUR ---
RADIOLOGY DEPT. CHEST X-RAY DONE.-P.DYE
[2019-01-09] MEDS ORDERED: Lidocaine 1% Plain 30 ml INJ PRN (10:45)
[2019-01-09] MEDS ORDERED: Heparin1,000 units/500ml Premix(Conc:2 units/ml) IV PRN (10:45)
--- NOTE | 2019-01-09 10:57 | Pulmonolgy Critical Care Note ---
Critical Care - Asmt/Plan Problems: (1) Sepsis (2) Pneumonia (3) Anti-NMDA receptor encephalitis (4) Chronic respiratory failure (5) S/P percutaneous endoscopic gastrostomy (PEG) tube placement Respiratory: monitor respiratory rate, adjust FIO2, CXR Cardiac: continue pressors, continue to monitor HR/BP Renal: F/U I&O Infectious Disease: check cultures, continue antibiotics Gastrointestinal: continue feedings/current rate Endocrine: monitor blood sugar Hematologic: monitor H/H, transfuse if hgb<8.5 Neurologic: PRN Ativan, keep patient comfortable Affect: PRN ativan Prophylaxis: Protonix Disposition: keep in ICU Time Spent (Minutes): 40 Notes Reviewed: cardio, renal Discussed with: nurses, consultants, 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 car - Objective Last 24 Hour Vital Signs Date Time Temp Pulse Resp B/P (MAP) Pulse Ox O2 Delivery O2 Flow Rate FiO2 01/09/19 10:36 86 16 30 01/09/19 09:00 88 19 105/75 (85) 100 01/09/19 08:58 95 16 30 01/09/19 08:00 90 19 108/73 (85) 99 01/09/19 08:00 101 01/09/19 08:00 30 01/09/19 08:00 Mechanical Ventilator 01/09/19 07:21 89 21 30 01/09/19 07:00 92 19 110/65 (80) 98 01/09/19 06:00 96.7 93 20 109/83 (92) 100 01/09/19 05:14 98 21 30 30 01/09/19 05:05 104 01/09/19 05:00 101 19 115/61 (79) 97 01/09/19 04:07 101 19 110/76 (87) 97 01/09/19 04:00 Mechanical Ventilator 01/09/19 04:00 30 01/09/19 04:00 99.8 102 18 106/68 (81) 100 01/09/19 03:08 99 16 30 30 01/09/19 03:00 99 18 104/60 (75) 100 01/09/19 02:00 97 17 106/68 (81) 96 01/09/19 01:06 93 19 30 30 01/09/19 01:00 96 17 106/68 (81) 100 01/09/19 00:00 98.4 96 20 108/68 (81) 100 01/09/19 00:00 Mechanical Ventilator 01/08/19 23:00 102 16 106/68 (81) 100 01/08/19 22:53 100 16 30 30 01/08/19 22:00 104 20 101/67 (78) 97 01/08/19 21:04 102 20 30 30 01/08/19 21:00 105 18 113/73 (86) 99 01/08/19 20:00 103 01/08/19 20:00 30 01/08/19 20:00 98.5 106 21 116/76 (89) 98 01/08/19 20:00 Mechanical Ventilator 01/08/19 19:00 103 20 105/55 (72) 100 01/08/19 19:00 101 22 105/55 (72) 97 01/08/19 18:43 107 20 30 30 01/08/19 18:00 107 17 107/78 (88) 100 01/08/19 17:11 103 20 30 01/08/19 17:00 103 17 107/75 (86) 100 01/08/19 16:00 98.0 105 20 98/60 (73) 100 01/08/19 16:00 97 01/08/19 16:00 Mechanical Ventilator 01/08/19 16:00 30 01/08/19 15:00 99 17 105/69 (81) 100 01/08/19 14:46 101 19 30 01/08/19 14:00 100 16 109/71 (84) 100 01/08/19 13:00 103 17 105/66 (79) 100 01/08/19 12:47 105 17 30 01/08/19 12:00 98 01/08/19 12:00 98.1 104 24 108/76 (87) 100 01/08/19 12:00 30 01/08/19 12:00 Mechanical Ventilator 01/08/19 11:00 100 24 108/78 (88) 100 Status: obtunded Condition: critical HEENT: atraumatic, normocephalic Neck: full ROM Lungs: clear Heart: HR/BP stable Abdomen: soft, non-tender Extremities: no C/C/E Critical Care - Subjective ROS Limited/Unobtainable: Yes Condition: critical EKG Rhythm: Sinus Rhythm FI02: 30 Vent Support Breath Rate: 16 Vent Support Mode: AC Vent Tidal Volume: 450 Sputum Amount: Small PEEP: 5.0 PIP: 18 Tube Feeding Amount: 55 I&O: Intake and Output 01/08/19 01/09/19 19:00 07:00 Intake Total 3357.999 ml 4545 ml Output Total 2370 ml 2020 ml Balance 987.999 ml 2525 ml Intake Free Water 200 ml 340 ml IV Total 2497.999 ml 3600 ml Tube Feeding 660 ml 605 ml Output Urine Total 2310 ml 2020 ml Stool Total 60 ml Labs: Laboratory Tests Test 01/09/19 04:30 01/09/19 07:49 White Blood Count 21.5 K/UL (4.8-10.8) H Red Blood Count 3.84 M/UL (4.70-6.10) L Hemoglobin 11.6 G/DL (14.2-18.0) L Hematocrit 34.2 % (42.0-52.0) L Mean Corpuscular Volume 89 FL (80-99) Mean Corpuscular Hemoglobin 30.4 PG (27.0-31.0) Mean Corpuscular Hemoglobin Concent 34.1 G/DL (32.0-36.0) Red Cell Distribution Width 13.7 % (11.6-14.8) Platelet Count 343 K/UL (150-450) Mean Platelet Volume 4.9 FL (6.5-10.1) L Neutrophils (%) (Auto) % (45.0-75.0) Lymphocytes (%) (Auto) % (20.0-45.0) Monocytes (%) (Auto) % (1.0-10.0) Eosinophils (%) (Auto) % (0.0-3.0) Basophils (%) (Auto) % (0.0-2.0) Differential Total Cells Counted 100 Neutrophils % (Manual) 76 % (45-75) H Lymphocytes % (Manual) 18 % (20-45) L Monocytes % (Manual) 5 % (1-10) Eosinophils % (Manual) 0 % (0-3) Basophils % (Manual) 1 % (0-2) Band Neutrophils 0 % (0-8) Platelet Estimate Adequate Platelet Morphology Normal Anisocytosis 1+ Sodium Level 130 MMOL/L (136-145) L Potassium Level 3.9 MMOL/L (3.5-5.1) Chloride Level 93 MMOL/L (98-107) L Carbon Dioxide Level 29 MMOL/L (21-32) Anion Gap 8 mmol/L (5-15) Blood Urea Nitrogen 4 mg/dL (7-18) L Creatinine 0.6 MG/DL (0.55-1.30) Estimat Glomerular Filtration Rate > 60 mL/min (>60) Glucose Level 225 MG/DL (74-106) H Calcium Level 8.6 MG/DL (8.5-10.1) Phosphorus Level 3.2 MG/DL (2.5-4.9) Magnesium Level 1.5 MG/DL (1.8-2.4) L Total Bilirubin 0.4 MG/DL (0.2-1.0) Aspartate Amino Transf (AST/SGOT) 16 U/L (15-37) Alanine Aminotransferase (ALT/SGPT) 25 U/L (12-78) Alkaline Phosphatase 94 U/L (46-116) Total Protein 7.8 G/DL (6.4-8.2) Albumin 2.8 G/DL (3.4-5.0) L Globulin 5.0 g/dL Albumin/Globulin Ratio 0.6 (1.0-2.7) L Vancomycin Level Trough 25.5 ug/mL (5.0-12.0) H Arterial Blood pH 7.451 (7.350-7.450) Arterial Blood Partial Pressure CO2 43.8 mmHg (35.0-45.0) Arterial Blood Partial Pressure O2 105.5 mmHg (75.0-100.0) H Arterial Blood HCO3 29.8 mmol/L (22.0-26.0) H Arterial Blood Oxygen Saturation 97.8 % (95-100) Arterial Blood Base Excess 5.2 (-2-2) H Jurgen Test N/a Babita Hardy MD January 09, 2019 10:57
--- NOTE | 2019-01-09 11:26 | Infectious Diseases Prog Note ---
Assessment/Plan Assessment/Plan The patient is a 23-year-old male with leukocytosis, increased -/ u/a neg -sp cx MDR PsA (R Imipenem, Ceftazidime; I levaquin; S Cefepime, Zosyn, Amikacin); 01/05 CXR no acute disease blood culture, CoNS ? contaminant, will teat as true bacteremia -repeat Bcx 01/05 NTD -2d Echo: limited study- no obvious vegetations Fever, (on cooling blanket ) due to sepsis vs relapse of anti-NMDA encephalitis probable Ventilator associated pneumonia Diarrhea C Diff neg ( will treat for C Diff in-view of sever watery diarrhea HIV Hep panel : neg Anemia. Thrombocytopenia. Seizure disorder History of recent seizure x1 year. 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 PLAN: Cont oral Vanco d# 5 ( empirically as wbc increased ) Switch Meropenem #2 back to Cefepime and add Amikacin in view of sp cx results Continue empiric IV Vancomycin d# /-10 -/ SP Cefepime #6 f/u Repeat blood culture Sputum culture ( delayed , despite of being ordered on 01/03) Urine culture ( delayed , despite of being ordered on 01/03) Monitor CBC and BMP cooling blanket f/u CXR am Plan for LP once more stable Neuro f/u Subjective Allergies: Coded Allergies: No Known Allergies (Unverified , 01/02/19) Subjective afebrile wbc remains on 21.5 no further seizures; EEG done, pending results Bcx NTD Objective Vital Signs Last 24 Hour Vital Signs Date Time Temp Pulse Resp B/P (MAP) Pulse Ox O2 Delivery O2 Flow Rate FiO2 01/09/19 10:36 86 16 30 01/09/19 09:00 88 19 105/75 (85) 100 01/09/19 08:58 95 16 30 01/09/19 08:00 90 19 108/73 (85) 99 01/09/19 08:00 101 01/09/19 08:00 30 01/09/19 08:00 Mechanical Ventilator 01/09/19 07:21 89 21 30 01/09/19 07:00 92 19 110/65 (80) 98 01/09/19 06:00 96.7 93 20 109/83 (92) 100 01/09/19 05:14 98 21 30 30 01/09/19 05:05 104 01/09/19 05:00 101 19 115/61 (79) 97 01/09/19 04:07 101 19 110/76 (87) 97 01/09/19 04:00 Mechanical Ventilator 01/09/19 04:00 30 01/09/19 04:00 99.8 102 18 106/68 (81) 100 01/09/19 03:08 99 16 30 30 01/09/19 03:00 99 18 104/60 (75) 100 01/09/19 02:00 97 17 106/68 (81) 96 01/09/19 01:06 93 19 30 30 01/09/19 01:00 96 17 106/68 (81) 100 01/09/19 00:00 98.4 96 20 108/68 (81) 100 01/09/19 00:00 Mechanical Ventilator 01/08/19 23:00 102 16 106/68 (81) 100 01/08/19 22:53 100 16 30 30 01/08/19 22:00 104 20 101/67 (78) 97 01/08/19 21:04 102 20 30 30 01/08/19 21:00 105 18 113/73 (86) 99 01/08/19 20:00 103 01/08/19 20:00 30 01/08/19 20:00 98.5 106 21 116/76 (89) 98 01/08/19 20:00 Mechanical Ventilator 01/08/19 19:00 103 20 105/55 (72) 100 01/08/19 19:00 101 22 105/55 (72) 97 01/08/19 18:43 107 20 30 30 01/08/19 18:00 107 17 107/78 (88) 100 01/08/19 17:11 103 20 30 01/08/19 17:00 103 17 107/75 (86) 100 01/08/19 16:00 98.0 105 20 98/60 (73) 100 01/08/19 16:00 97 01/08/19 16:00 Mechanical Ventilator 01/08/19 16:00 30 01/08/19 15:00 99 17 105/69 (81) 100 01/08/19 14:46 101 19 30 01/08/19 14:00 100 16 109/71 (84) 100 01/08/19 13:00 103 17 105/66 (79) 100 01/08/19 12:47 105 17 30 01/08/19 12:00 98 01/08/19 12:00 98.1 104 24 108/76 (87) 100 01/08/19 12:00 30 01/08/19 12:00 Mechanical Ventilator Height (Feet): 5 Height (Inches): 5.00 Weight (Pounds): 120 Objective Status: awake Condition: critical HEENT: atraumatic Neck: full ROM Lungs: chest wall tender Heart: HR/BP stable Abdomen: soft, active bowel sounds Extremities: no C/C/E Laboratory Tests Test 01/09/19 04:30 01/09/19 07:49 White Blood Count 21.5 K/UL (4.8-10.8) H Red Blood Count 3.84 M/UL (4.70-6.10) L Hemoglobin 11.6 G/DL (14.2-18.0) L Hematocrit 34.2 % (42.0-52.0) L Mean Corpuscular Volume 89 FL (80-99) Mean Corpuscular Hemoglobin 30.4 PG (27.0-31.0) Mean Corpuscular Hemoglobin Concent 34.1 G/DL (32.0-36.0) Red Cell Distribution Width 13.7 % (11.6-14.8) Platelet Count 343 K/UL (150-450) Mean Platelet Volume 4.9 FL (6.5-10.1) L Neutrophils (%) (Auto) % (45.0-75.0) Lymphocytes (%) (Auto) % (20.0-45.0) Monocytes (%) (Auto) % (1.0-10.0) Eosinophils (%) (Auto) % (0.0-3.0) Basophils (%) (Auto) % (0.0-2.0) Differential Total Cells Counted 100 Neutrophils % (Manual) 76 % (45-75) H Lymphocytes % (Manual) 18 % (20-45) L Monocytes % (Manual) 5 % (1-10) Eosinophils % (Manual) 0 % (0-3) Basophils % (Manual) 1 % (0-2) Band Neutrophils 0 % (0-8) Platelet Estimate Adequate Platelet Morphology Normal Anisocytosis 1+ Sodium Level 130 MMOL/L (136-145) L Potassium Level 3.9 MMOL/L (3.5-5.1) Chloride Level 93 MMOL/L (98-107) L Carbon Dioxide Level 29 MMOL/L (21-32) Anion Gap 8 mmol/L (5-15) Blood Urea Nitrogen 4 mg/dL (7-18) L Creatinine 0.6 MG/DL (0.55-1.30) Estimat Glomerular Filtration Rate > 60 mL/min (>60) Glucose Level 225 MG/DL (74-106) H Calcium Level 8.6 MG/DL (8.5-10.1) Phosphorus Level 3.2 MG/DL (2.5-4.9) Magnesium Level 1.5 MG/DL (1.8-2.4) L Total Bilirubin 0.4 MG/DL (0.2-1.0) Aspartate Amino Transf (AST/SGOT) 16 U/L (15-37) Alanine Aminotransferase (ALT/SGPT) 25 U/L (12-78) Alkaline Phosphatase 94 U/L (46-116) Total Protein 7.8 G/DL (6.4-8.2) Albumin 2.8 G/DL (3.4-5.0) L Globulin 5.0 g/dL Albumin/Globulin Ratio 0.6 (1.0-2.7) L Vancomycin Level Trough 25.5 ug/mL (5.0-12.0) H Arterial Blood pH 7.451 (7.350-7.450) Arterial Blood Partial Pressure CO2 43.8 mmHg (35.0-45.0) Arterial Blood Partial Pressure O2 105.5 mmHg (75.0-100.0) H Arterial Blood HCO3 29.8 mmol/L (22.0-26.0) H Arterial Blood Oxygen Saturation 97.8 % (95-100) Arterial Blood Base Excess 5.2 (-2-2) H Jurgen Test N/a Current Medications Medications (Trade) Dose Ordered Sig/Cassidy Route PRN Reason Start Time Stop Time Status Last Admin Dose Admin Acetaminophen (Tylenol) 650 mg Q4H PRN GT Mild Pain/Temp > 100.5 5//19 14:00 02/02/19 13:59 01/08/19 08:46 Chlorhexidine Gluconate (Becca-Hex 2%) 1 applic DAILY@2000 TOPIC 01/09/19 20:00 02/08/19 19:59 Dextrose/ Electrolytes 1,000 ml @ 75 mls/hr [id number] IV 01/05/19 14:27 02/04/19 14:26 01/08/19 21:36 Heparin Sodium (Porcine) (Heparin 5000 units/ml) 5,000 units EVERY 12 HOURS SUBQ 01/02/19 21:00 02/01/19 20:59 01/09/19 09:04 Heparin Sodium/ Sodium Chloride (Heparin 1000 units/500ml Premix) 1,000 unit ONCE PRN IV PICC 01/09/19 10:45 01/09/19 23:59 Levetiracetam (Keppra) 1,000 mg Q12HR GT 01/03/19 21:00 02/02/19 08:59 01/09/19 09:03 Lidocaine HCl (Xylocaine 1% 30ml) 30 ml ONCE PRN INJ PICC 01/09/19 10:45 01/09/19 23:59 Lorazepam (Ativan 2mg/ml 1ml) 2 mg Q1H PRN IV FOr seizure 01/04/19 22:30 01/11/19 22:29 01/08/19 08:47 Magnesium Sulfate 100 ml @ 100 mls/hr Q1H IVPB 01/09/19 12:45 01/09/19 14:44 Meropenem 1 gm/ Sodium Chloride 55 ml @ 110 mls/hr Q8H IVPB 01/08/19 15:00 01/13/19 14:59 01/09/19 07:06 Pantoprazole (Protonix) 40 mg DAILY IVP 01/03/19 09:00 02/02/19 08:59 01/09/19 09:03 Phenytoin 1000 mg/ Sodium Chloride 295 ml @ 295 mls/hr Q12HR IVPB 01/04/19 21:45 02/03/19 21:44 01/09/19 09:26 Vancomycin HCl (Firvanq) 125 mg FOUR TIMES A DAY ORAL 01/05/19 21:00 01/12/19 20:59 01/09/19 09:03 Vancomycin HCl (Vanco rx to dose) 1 ea DAILY PRN MISC Per rx protocol 01/03/19 20:30 02/02/19 20:29 Vancomycin HCl/ Dextrose 275 ml @ 183.333 mls/hr Q6HR IVPB 01/08/19 12:00 01/13/19 11:59 01/09/19 06:24 Nicky Gautam M.D. January 09, 2019 11:26
[2019-01-09] MEDS ORDERED: Amikacin Rx to dose MISC PRN (11:30)
--- NOTE | 2019-01-09 12:00 | NUR ---
NURSE NOTES: VSS. BP stable. No distress noted. Patient remains unresponsive, facial grimacing and extremeity repeated movement noted.
--- NOTE | 2019-01-09 12:15 | Diagnostic Imaging Report ---
Indication: Dyspnea Comparison: 01/05/2019 A single view chest radiograph was obtained. Findings: Lung volumes are low currently. There is suggestion of mild atelectasis at the lung bases. Tracheostomy is noted. Heart size is normal. Gastrostomy noted. IMPRESSION: No acute findings
[2019-01-09] MEDS ORDERED: Cefepime HCl 2 GM in D5W 55 ML IVPB SCH (12:30)
--- NOTE | 2019-01-09 13:15 | Progress Note ---
DATE: 01/08/2019 NOTE: POOR AUDIO SUBJECTIVE: The patient is more with multiple movements legs and different facial expression. He is persistently tachycardic, afebrile, and hemodynamically stable. PHYSICAL EXAMINATION: VITAL SIGNS: Blood pressure 106/68, his pulse is 102, respirations of 16, and temperature 98.5. HEENT: Eyes were normal. ENT, mucous membranes were moist and intact. NECK: Supple with no JVD without lymph nodes. Tracheostomy site is clean. LUNGS: Clear without rhonchi, rales, or wheezing. Secretions are small, thin, and auguste. HEART: Normal sounds with regular beats. There is no S3, S4, or pericardial rub. There is tachycardia at rest. ABDOMEN: Soft and nontender with normal bowel sounds. Gastrostomy site is clean. EXTREMITIES: Warm without cyanosis, clubbing, or edema. LABORATORY AND DIAGNOSTIC DATA: Hemoglobin is 12.3, hematocrit 36.0 with MCV of 90, WBC of 21, and platelets 372. His BUN and creatinine are 4 and 0.6 respectively. Sodium is 131, potassium 4.1, chloride 94, CO2 is 27, and his glucose is 273. His calcium is 9.2. the patient was found to have anti-NMDA receptor antibodies current condition clinical status as of today at [facility] has been initiated. Repeat laboratory tests will be done in the a.m. Klever Leung M.D. DR: SANTINO JOB#: [id number] CC:
--- NOTE | 2019-01-09 14:00 | NUR ---
NURSE NOTES: VSS. No distress noted. Will continue plan of care.
--- NOTE | 2019-01-09 14:18 | Cardiology Report ---
APPROVED REPORT EXAM: Two-dimensional and M-mode echocardiogram with Doppler and color Doppler. INDICATION Endocarditis M-Mode DIMENSIONS IVSd1.2 (0.7-1.1cm)Left Atrium (MM)2.9 (1.6-4.0cm) LVDd5.2 (3.5-5.6cm)Aortic Root2.8 (2.0-3.7cm) PWd1.3 (0.7-1.1cm)Aortic Cusp Exc.1.7 (1.5-2.0cm) IVSs1.3 cm LVDs3.5 (2.5-4.0cm) PWs1.2 cm Technically difficult study due pt's position . Normal left ventricular chamber size with global LV hypokinesis . Left ventricular ejection fraction estimated to be 40-45%. No evidence of left ventricular hypertrophy . No evidence of pericardial effusion. All other cardiac chamber sizes are within normal limits. Aortic valve calcification with normal cusp excursion . Mildly thickened mitral valve leaflets with normal excursion. Mild mitral annulus and aortic root calcification. Pulmonic valve not well visualized. IVC at size 1.6 without physiologic collapse . A color flow and spectral Doppler study was performed and revealed: No aortic insufficiency . Mitral inflow indicates normal left ventricular diastolic function. Mild moderate mitral regurgitation. Mild tricuspid regurgitation. Tricuspid systolic velocities suggests peak right ventricular systolic pressure of 31 mmHg.
--- NOTE | 2019-01-09 14:46 | Diagnostic Imaging Report ---
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 The right upper extremity was prepped with alcohol. All elements of maximal sterile barrier technique were followed including usage of a cap, mask, sterile gown, sterile gloves, hand hygiene and a large sterile sheet. Sonographic evaluation of the upper extremity was performed demonstrating a patent and compressible basilic vein. Access was obtained under real-time ultrasound guidance (with utilization of sterile gel and sterile probe cover) and digital image was saved and archived. An .018 wire was introduced. Needle exchanged for a 5 Canadian peel-away sheath. Measurements were obtained. A 5 [place] dual-lumen Power PICC line catheter was cut to 38 cm and introduced over the wire. Peel-away sheath and wire were removed.Catheter was secured to the skin using 2-0 Prolene suture. Both ports aspirate and flush easily. Post procedure chest x-ray demonstrates good position of the PICC line catheter within the SVC. However the catheter is long and curled back. Will reposition. Impression: Successful placement of an upper extremity PICC line catheter. The catheter will be repositioned.
[2019-01-09] MEDS: NS IV SCH (15:10)
[2019-01-09] MEDS: AMIKACIN IV SCH (15:10)
--- NOTE | 2019-01-09 15:45 | General Progress Note ---
Assessment/Plan Status: stable Assessment/Plan: Assessment and Recs: # Anemia of chronic disease due to underlying chronic medical issues, multifactorial --> Anemia workup has been reviewed, no dory noted --> No evidence of hemolysis is noted, peripheral smear has been reviewed. --> Hgb goal >7. Transfuse prn. --> Epogen or iron at this time is not particularly indicated --> Medications have been reviewed --> evaluate with Gi team prn --> transfuse if hgb is < 7 (will trend CBC daily) --> ferritin is 378, tibc is 201 => hgb trend 10.4-->10.3-->10.6-->22k-->22k # Thrombocytopenia - potential causes multifactorial, evaluate liver and viral etiologies to begin, also could be related to underlying medications patient has received. --> Hep panel and HIV is negative --> US abd shows borderline splenomegaly --> Peripheral smear ordered to evaluate for blasts /schistocytes and none noted --> abx and other meds have been reviewed --> ok for ppx if plt >50k w/ either heparin or lovenox --> Trend 130k-->121k-->372k # Leukocytosis with cxr showing left infitrate, cmp is unremarkable, initial lactate elevated --> peripheral smear reviewed --> wbc trend 12-->9 # Sepsis r/o undelrying infection --> on abx, as per id # Pneumonia on abx # Anti-NMDA rec --> to be transferred to [facility] prbn # h/o seizures. --> Valproic acid level undetected. No tonic/clonic seizure activity and Keppra had been given --> per neuro # Respiratory with vent/trach --> as per Antony santos # Dysphagia s/p peg The timing of this note does not necessarily reflect the time of the patient was seen. Greatly appreciate consultation! Subjective Constitutional: Denies: no symptoms, chills, diaphoresis, fever, malaise, weakness, other HEENT: Denies: no symptoms, eye pain, blurred vision, tearing, double vision, ear pain, ear discharge, nose pain, nose congestion, throat pain, throat swelling, mouth pain, mouth swelling, other Cardiovascular: Denies: no symptoms, chest pain, edema, irregular heart rate, lightheadedness, palpitations, syncope, other Respiratory: Denies: no symptoms, cough, orthopnea, shortness of breath, SOB with excertion, SOB at rest, sputum, stridor, wheezing, other Gastrointestinal/Abdominal: Denies: no symptoms, abdomen distended, abdominal pain, black stools, tarry stools, blood in stool, constipated, diarrhea, difficulty swallowing, nausea, poor appetite, poor fluid intake, rectal bleeding , vomiting, other Genitourinary: Denies: no symptoms, burning, discharge, frequency, flank pain, hematuria, incontinence, pain, urgency, other Neurologic/Psychiatric: Denies: no symptoms, anxiety, depressed, emotional problems, headache, numbness, paresthesia, pre-existing deficit, seizure, tingling, tremors, weakness, other Endocrine: Denies: no symptoms, excessive sweating, flushing, intolerance to cold, intolerance to heat, increased hunger, increased thirst, increased urine, unexplained weight gain, unexplained weight loss, other Allergies: Coded Allergies: No Known Allergies (Unverified , 01/02/19) Subjective 5/2: remains in the icu, no f/c, no night sweats, remains on abx 5/3: in icu, remains on trach/vent, no sig bleeding 5: no events noted, no f/c, on trach/vent, remains in the icu 5/6: no events to reported, turned, on vent 5: labs reviewed, pending transfer to [facility] Objective Last 24 Hour Vital Signs Date Time Temp Pulse Resp B/P (MAP) Pulse Ox O2 Delivery O2 Flow Rate FiO2 01/09/19 15:20 91 17 30 01/09/19 14:00 84 19 114/75 (88) 100 01/09/19 13:00 85 19 110/74 (86) 100 01/09/19 12:58 88 16 30 01/09/19 12:00 88 19 105/75 (85) 100 01/09/19 12:00 Mechanical Ventilator 01/09/19 12:00 88 01/09/19 12:00 30 01/09/19 11:00 97.7 80 19 103/55 (71) 100 01/09/19 10:36 86 16 30 01/09/19 10:00 84 19 108/78 (88) 100 01/09/19 09:00 88 19 105/75 (85) 100 01/09/19 08:58 95 16 30 01/09/19 08:00 90 19 108/73 (85) 99 01/09/19 08:00 101 01/09/19 08:00 30 01/09/19 08:00 Mechanical Ventilator 01/09/19 07:21 89 21 30 01/09/19 07:00 92 19 110/65 (80) 98 01/09/19 06:00 96.7 93 20 109/83 (92) 100 01/09/19 05:14 98 21 30 30 01/09/19 05:05 104 01/09/19 05:00 101 19 115/61 (79) 97 01/09/19 04:07 101 19 110/76 (87) 97 01/09/19 04:00 Mechanical Ventilator 01/09/19 04:00 30 01/09/19 04:00 99.8 102 18 106/68 (81) 100 01/09/19 03:08 99 16 30 30 01/09/19 03:00 99 18 104/60 (75) 100 01/09/19 02:00 97 17 106/68 (81) 96 01/09/19 01:06 93 19 30 30 01/09/19 01:00 96 17 106/68 (81) 100 01/09/19 00:00 98.4 96 20 108/68 (81) 100 01/09/19 00:00 Mechanical Ventilator 01/08/19 23:00 102 16 106/68 (81) 100 01/08/19 22:53 100 16 30 30 01/08/19 22:00 104 20 101/67 (78) 97 01/08/19 21:04 102 20 30 30 01/08/19 21:00 105 18 113/73 (86) 99 01/08/19 20:00 103 01/08/19 20:00 30 01/08/19 20:00 98.5 106 21 116/76 (89) 98 01/08/19 20:00 Mechanical Ventilator 01/08/19 19:00 103 20 105/55 (72) 100 01/08/19 19:00 101 22 105/55 (72) 97 01/08/19 18:43 107 20 30 30 01/08/19 18:00 107 17 107/78 (88) 100 5/6/19 17:11 103 20 30 01/08/19 17:00 103 17 107/75 (86) 100 01/08/19 16:00 98.0 105 20 98/60 (73) 100 01/08/19 16:00 97 01/08/19 16:00 Mechanical Ventilator 01/08/19 16:00 30 Intake and Output 01/08/19 01/09/19 19:00 07:00 Intake Total 3357.999 ml 4545 ml Output Total 2370 ml 2020 ml Balance 987.999 ml 2525 ml Intake Free Water 200 ml 340 ml IV Total 2497.999 ml 3600 ml Tube Feeding 660 ml 605 ml Output Urine Total 2310 ml 2020 ml Stool Total 60 ml Laboratory Tests 01/09/19 04:30: White Blood Count 21.5H, Red Blood Count 3.84L, Hemoglobin 11.6L, Hematocrit 34.2L, Mean Corpuscular Volume 89, Mean Corpuscular Hemoglobin 30.4, Mean Corpuscular Hemoglobin Concent 34.1, Red Cell Distribution Width 13.7, Platelet Count 343, Mean Platelet Volume 4.9L, Neutrophils (%) (Auto) , Lymphocytes (%) ( Auto) , Monocytes (%) (Auto) , Eosinophils (%) (Auto) , Basophils (%) (Auto) , Differential Total Cells Counted 100, Neutrophils % (Manual) 76H, Lymphocytes % (Manual) 18L, Monocytes % (Manual) 5, Eosinophils % (Manual) 0, Basophils % ( Manual) 1, Band Neutrophils 0, Platelet Estimate Adequate, Platelet Morphology Normal, Anisocytosis 1+, Sodium Level 130L, Potassium Level 3.9, Chloride Level 93L, Carbon Dioxide Level 29, Anion Gap 8, Blood Urea Nitrogen 4L, Creatinine 0.6, Estimat Glomerular Filtration Rate > 60, Glucose Level 225H, Calcium Level 8.6, Phosphorus Level 3.2, Magnesium Level 1.5L, Total Bilirubin 0.4, Aspartate Amino Transf (AST/SGOT) 16, Alanine Aminotransferase (ALT/SGPT) 25, Alkaline Phosphatase 94, Total Protein 7.8, Albumin 2.8L, Globulin 5.0, Albumin/Globulin Ratio 0.6L, Vancomycin Level Trough 25.5H 01/09/19 07:49: Arterial Blood pH 7.451H, Arterial Blood Partial Pressure CO2 43.8, Arterial Blood Partial Pressure O2 105.5H, Arterial Blood HCO3 29.8H, Arterial Blood Oxygen Saturation 97.8, Arterial Blood Base Excess 5.2H, Jurgen Test N/a 01/09/19 12:00: Vancomycin Level Trough 18.4H Height (Feet): 5 Height (Inches): 5.00 Weight (Pounds): 120 Objective General Appearance: moderate distress, Chronically Ill Head: normocephalic, atraumatic Eyes: bilateral eye normal inspection, bilateral eye PERRL ENT: dry mucus membranes, other - constant motor movement of lips and mough Neck: supple, tracheotomy/vent Respiratory: respiratory distress, rales, rhonci ++ trach/vent Cardiovascular: no edema, no JVD, tachycardia, 2+ radial (R) GI: ++ peg : other - Uncircumcised Musculoskeletal: other - Atrophy Neurologic: other - Not responding to exter with fasciculations of lips Psychiatric: other - Stupor Alok Thompson MD January 09, 2019 15:45
--- NOTE | 2019-01-09 16:00 | NUR ---
NURSE NOTES: No changes in patient condition at this time. Mother at bedside. Will continue plan of care.
[2019-01-09] MEDS: Cefepime HCl 2 GM in D5W 55 ML IVPB SCH (17:04)
--- NOTE | 2019-01-09 18:00 | NUR ---
NURSE NOTES: VSs. No distress noted. Turned and repositioned. Will continue to monitor patient. PICC line placed but X-RAY reading shows that it needs to be pulled back 1 cm. Radiology department aware. Will continue to use peripheral lines until x-ray confirmation of placement.
--- NOTE | 2019-01-09 18:53 | NUR ---
RESPIRATORY NOTE: Received pt on AC 16, 450VT, 30%, PEEP +5. Pt trach-dependent w/ a cuffed, Shiley 8 tube. Pt obtunded, responds to pain. B/S janett. rhonchi/diminished, sxn small amounts of thick, pale-yellow to courtney-yellow secretions. Vent plugged into red outlet, ambubag a Addendum: 01/10/19 at 0108 by FELICITY EDWARDS RT ambubag & spare trach kit at bedside. Pt in no apparent distress at this time. Will continue plan of care.
--- NOTE | 2019-01-09 19:03 | NUR ---
HAND-OFF: Report given to Joann RN using SBR. VSS. No distress noted.
[2019-01-09] MEDS: Dyna-Hex 2% Top Sol 2oz TOPIC SCH (20:00)
--- NOTE | 2019-01-09 20:00 | NUR ---
NURSE NOTES: pt nan verbal obtunded moving all extremities open eyes to touch does not follows command iv sitegood and infusing well ltrach - vent o2 sat 1000 o/o reposition and suction
--- NOTE | 2019-01-09 21:45 | Electroencephalogram ---
DATE OF PROCEDURE: 01/08/2019 REQUESTING PHYSICIAN: Carmelo Aden M.D. READING PHYSICIAN: Talon Hairston M.D. PROCEDURE PERFORMED: Electroencephalogram. HISTORY: This EEG was performed on a 23-year-old gentleman with a history of encephalitis and seizures. The purpose of this EEG was to evaluate the patient for ongoing ictal or interictal phenomena. TECHNICAL NOTE: This EEG was performed on a [employer] Digital Acquisition Unit with electrodes placed on the scalp according to the International 10-20 system. [id number] and dfedn-nv-frm montages were used. The EEG was technically satisfactory and was performed while the patient was in a poorly responsive state. OBSERVATIONS: In the poorly responsive state, the background activity consisted of 1-1.5 Hz delta activity with a moderate amount of superimposed beta frequencies. When the patient was stimulated, reactivity was seen with some intermixed theta frequencies. No definite focal abnormalities or epileptiform discharges were seen. IMPRESSION: This is an abnormal EEG characterized by: 1. Slowing of the background to 1-1.5 Hz delta range. 2. The presence of reactivity to external stimulation. COMMENT: This study is consistent with an encephalopathy of a severe degree. Clinical correlation is recommended. Talon Hairston M.D., M.S.P.H. DR: RIAZ/YK JOB#: [id number] MTDD
--- NOTE | 2019-01-09 21:45 | Electroencephalogram ---
DATE OF PROCEDURE: 01/04/2019 REQUESTING PHYSICIAN: Klever Leung M.D. READING PHYSICIAN: Talon Hairston M.D. PROCEDURE PERFORMED: Electroencephalogram. HISTORY: This EEG was performed on a 23-year-old gentleman who was hospitalized for an alteration in his mental state and apparently had seizures in the past. The purpose of this EEG was to evaluate the patient for ongoing ictal or interictal phenomena. TECHNICAL NOTE: This EEG was performed on a [employer] Acquisition Unit with electrodes placed on the scalp according to the International 10-20 system. [id number]-in-[id number] and cdxpz-hd-zkj montages were used. The EEG was of technically mediocre quality due to the fact that it was abbreviated, and in addition, no activating techniques were utilized. OBSERVATION: In the poorly responsive state, the background activity consisted of 5-7 Hz theta and 2-2.5 Hz delta activity. Large parts of the tracing were marred by the EMG artifact. No definite focal abnormalities or epileptiform discharges were seen. IMPRESSION: This is an abnormal EEG characterized by slowing of the background in the theta and delta range. COMMENT: This study is consistent with an encephalopathy of a moderate degree. Please note that no interictal discharges were seen on this EEG. Talon Hairston M.D., M.S.P.H. DR: RIAZ/ZAFAR JOB#: [id number] MTDRan
[2019-01-09] MEDS: NovoLOG Insulin Flexpen SUBQ SCH (21:50)
[2019-01-10] VITALS (35 sets, daily range): BP systolic 80–136; BP diastolic 35–91
[2019-01-10] MEDS: Vancomycin 1.25gm Premix IVPB SCH ×4 (00:23→18:13)
--- NOTE | 2019-01-10 01:48 | Neurology Progress Note ---
Interim History Interim History ROS Limited/Unobtainable: Yes Complaints: NMDA Encephalitis Events: Exam remains stable, afebrile Interim History This visit was conducted on Jan 09 [address] Carmelo Aden Review of Systems All Systems: reviewed and negative except above Objective Physical Exam Last Vital Signs Date Time Temp Pulse Resp B/P (MAP) Pulse Ox O2 Delivery O2 Flow Rate FiO2 01/10/19 01:03 90 17 30 01/09/19 23:00 104/67 (79) 98 01/09/19 20:00 Mechanical Ventilator 01/09/19 15:00 99.0 01/02/19 18:45 55.0 Laboratory Tests Test 01/09/19 04:30 01/09/19 07:49 01/09/19 12:00 White Blood Count 21.5 K/UL (4.8-10.8) H Red Blood Count 3.84 M/UL (4.70-6.10) L Hemoglobin 11.6 G/DL (14.2-18.0) L Hematocrit 34.2 % (42.0-52.0) L Mean Corpuscular Volume 89 FL (80-99) Mean Corpuscular Hemoglobin 30.4 PG (27.0-31.0) Mean Corpuscular Hemoglobin Concent 34.1 G/DL (32.0-36.0) Red Cell Distribution Width 13.7 % (11.6-14.8) Platelet Count 343 K/UL (150-450) Mean Platelet Volume 4.9 FL (6.5-10.1) L Neutrophils (%) (Auto) % (45.0-75.0) Lymphocytes (%) (Auto) % (20.0-45.0) Monocytes (%) (Auto) % (1.0-10.0) Eosinophils (%) (Auto) % (0.0-3.0) Basophils (%) (Auto) % (0.0-2.0) Differential Total Cells Counted 100 Neutrophils % (Manual) 76 % (45-75) H Lymphocytes % (Manual) 18 % (20-45) L Monocytes % (Manual) 5 % (1-10) Eosinophils % (Manual) 0 % (0-3) Basophils % (Manual) 1 % (0-2) Band Neutrophils 0 % (0-8) Platelet Estimate Adequate Platelet Morphology Normal Anisocytosis 1+ Sodium Level 130 MMOL/L (136-145) L Potassium Level 3.9 MMOL/L (3.5-5.1) Chloride Level 93 MMOL/L (98-107) L Carbon Dioxide Level 29 MMOL/L (21-32) Anion Gap 8 mmol/L (5-15) Blood Urea Nitrogen 4 mg/dL (7-18) L Creatinine 0.6 MG/DL (0.55-1.30) Estimat Glomerular Filtration Rate > 60 mL/min (>60) Glucose Level 225 MG/DL (74-106) H Calcium Level 8.6 MG/DL (8.5-10.1) Phosphorus Level 3.2 MG/DL (2.5-4.9) Magnesium Level 1.5 MG/DL (1.8-2.4) L Total Bilirubin 0.4 MG/DL (0.2-1.0) Aspartate Amino Transf (AST/SGOT) 16 U/L (15-37) Alanine Aminotransferase (ALT/SGPT) 25 U/L (12-78) Alkaline Phosphatase 94 U/L (46-116) Total Protein 7.8 G/DL (6.4-8.2) Albumin 2.8 G/DL (3.4-5.0) L Globulin 5.0 g/dL Albumin/Globulin Ratio 0.6 (1.0-2.7) L Vancomycin Level Trough 25.5 ug/mL (5.0-12.0) H 18.4 ug/mL (5.0-12.0) H Arterial Blood pH 7.451 (7.350-7.450) Arterial Blood Partial Pressure CO2 43.8 mmHg (35.0-45.0) Arterial Blood Partial Pressure O2 105.5 mmHg (75.0-100.0) H Arterial Blood HCO3 29.8 mmol/L (22.0-26.0) H Arterial Blood Oxygen Saturation 97.8 % (95-100) Arterial Blood Base Excess 5.2 (-2-2) H Jurgen Test N/a General: other Head: other Neck: other Neurologic Exam Mental Status: other Speech: other Language: other Cranial Nerve II: other Cranial Nerves III, IV, : other Cranial Nerve V: other Cranial Nerve VII: other Cranial Nerve VIII: other Cranial Nerve IX: other Cranial Nerve XI: other Cranial Nerve XII: other Motor System: other Sensory: other Coordination: other - Eyes opening intermittently without tracking to noxious stimuli. Decerebrate posturing in UEs to noxious stim. Triple flexing in LEs to stim. Pupils briskly reactive. Gag intact to trach suction. Impression/Recommendations Problems: (1) Seizure disorder (2) Sepsis (3) Anti-NMDA receptor encephalitis (4) Chronic respiratory failure (5) Status post tracheostomy (6) S/P percutaneous endoscopic gastrostomy (PEG) tube placement Status: stable Recommendations EEG ordered- LP ordered - unable to be performed at [facility] Test for : Glucose Protein Culture/Sensitivity Oligoclonal Bands Coccoides Anti NMDA antibody HSV Maintain normothermia Commence Broad spectrum Abx Na 135-145 Maintain normoglycemia 1g Phenytoin now and then BID to continue 1-2mg Ativan Q1-2 hrs PRN for seizure activity. IV Keppra 1g BID Check Keppra serum level Record/ report all seizure activity. Q hr Neuro checks . Advisable to commence Rituxan DREA for induction phase x 2 weeks . Requested HIGHER LEVEL OF CARE FOR retesting of CSF and necessary treatment Query [facility]- primary team made aware and Case Management also involved Nell Bragg N.P. January 10, 2019 01:48
--- NOTE | 2019-01-10 02:00 | NUR ---
condition unchange reposition and suction
--- NOTE | 2019-01-10 03:30 | Progress Note ---
DATE: 01/09/2019 NOTE: POOR AUDIO SUBJECTIVE: in regard to the management of patient's condition in addition I will literature in regard to autoimmune encephalitis and one of several options in regard to the suppression of the immunity. In addition, several months ago, I have treated autoimmune encephalitis in the subacute unit of [facility] with remarkable success with Rituxan substantial amount of money to the insurance through the hospital treatment. Discussed my finding and my suggestion with the complex case manager of [facility] with authorization while the patient is in subacute and we will see if we took him as an outpatient treatment Hodgkin lymphoma other autoimmune disease. Over the last several days, the patient's cognitive condition has progressively improved, and he will attempt to open his eyes, but he is unable and there was normal movement of upper and lower extremities bilateral activation of both sides and hyperstimulation of both sides of the brain. OBJECTIVE: VITAL SIGNS: He was febrile yesterday and he is afebrile today, blood pressure is 121/68, pulse 85, respirations of 19, and temperature 99. HEENT: Eyes were normal. ENT, mucous membranes were moist and intact. NECK: Supple with no JVD without lymph nodes. Tracheostomy site is clean. LUNGS: Clear without rhonchi, rales, or wheezing. Secretions are small, thin, and forte. HEART: Normal sounds with regular heartbeats. There is no S3, S4, or pericardial rub. ABDOMEN: Soft and nontender with normal bowel sounds. Gastrostomy site is clean. EXTREMITIES: Warm without cyanosis, clubbing, or edema. LABORATORY AND DIAGNOSTIC DATA: Hemoglobin 11.6, hematocrit 34.2, MCV of 89, WBC of 21.5, and platelets 100. His BUN and creatinine are 4 and 0.6 respectively. His sodium is 130, potassium 3.9, chloride 96, CO2 was 29, phosphorus is 3.2, and magnesium was 1.5. IMPRESSION: The patient has hyponatremia. We will check urine sodium and urine creatinine. The patient has hypomagnesemia. He is to receive 2 g of magnesium sulfate. The patient was found to have elevated blood sugar. The patient is now intensity q.6 h. HbA1c was done in a.m. Discussion regarding patient management of immunosuppression will be done with the Neurology and the case management. Klever Leung M.D. DR: ROSSANA JOB#: [id number] CC:
[2019-01-10] MEDS: Cefepime HCl 2 GM in D5W 55 ML IVPB SCH (04:00)
--- NOTE | 2019-01-10 04:00 | NUR ---
NURSE NOTES:am care and wound care done
[2019-01-10 05:32] LABS: BASOPHILS % (AUTO) 0.5 % (0.0-2.0); EOSINOPHILS % (AUTO) 0.7 % (0.0-3.0); HEMATOCRIT 29.4 % (42.0-52.0); HEMOGLOBIN 9.9 G/DL (14.2-18.0); LYMPHOCYTES % (AUTO) 19.7 % (20.0-45.0); MEAN CORPUSCULAR VOLUME 90 FL (80-99); MONOCYTES % (AUTO) 6.6 % (1.0-10.0); NEUTROPHILS % (AUTO) 72.5 % (45.0-75.0); PLATELET COUNT 334 K/UL (150-450); RED BLOOD COUNT 3.26 M/UL (4.70-6.10); WHITE BLOOD COUNT 17.9 K/UL (4.8-10.8)
[2019-01-10 05:40] LABS: ALANINE AMINOTRANSFERASE 20 U/L (12-78); ALBUMIN 2.4 G/DL (3.4-5.0); ALBUMIN/GLOBULIN RATIO 0.5 (1.0-2.7); ALKALINE PHOSPHATASE 79 U/L (46-116); ANION GAP 8 mmol/L (5-15); ASPARTATE AMINO TRANSFERASE 12 U/L (15-37); BILIRUBIN,TOTAL 0.3 MG/DL (0.2-1.0); BLOOD UREA NITROGEN 8 mg/dL (7-18); CALCIUM 8.2 MG/DL (8.5-10.1); CARBON DIOXIDE 27 MMOL/L (21-32); CHLORIDE 93 MMOL/L (98-107); CREATININE 0.6 MG/DL (0.55-1.30); POTASSIUM 4.5 MMOL/L (3.5-5.1); SODIUM 128 MMOL/L (136-145)
[2019-01-10] MEDS: NovoLOG Insulin Flexpen SUBQ SCH ×4 (05:49→21:22)
--- NOTE | 2019-01-10 06:00 | NUR ---
NURSE NOTES: iv infiltrated was restared left fa
--- NOTE | 2019-01-10 08:00 | NUR ---
NURSE NOTES: Patient opens eyes, involuntary marcin-like repetative movements. vehicle monitor technician showing ST HR 101. Trach to vent dependent. Shiley 8 AC 16 VT 450 FiO2 30% Peep of 5. Patient has G tube, Jevity 1.2 at 55 cc/hr. No residual noted. P200 mattress intact no skin issues noted. L AC kamini 20 running NS with 20 KCL at 75 CC/hr. PICC placement to be confirmed. Hypoactive bowel sounds present. Lung sounds diminished bilaterally. Side rails padded for seizure precaution, bed alarm on for safety, bed on lowest position, hob elevated for aspiration precaution. No new orders at this time. Will continue to monitor patient.
--- NOTE | 2019-01-10 08:17 | NUR ---
HAND-OFF: Report given to .kelechi lópez
--- NOTE | 2019-01-10 08:27 | NUR ---
DONOR RELATIONS COORDINATORCLINICAL ENGINEERING DIRECTOR SI:SEPSIS . RESPIRATORY FAILURE VS: BP 131/83, P 102, RR 19, SpO2 100 on VENT AC 16, TV 450, PEEP 5.0, FiO2 30 WBC 17.9, RBC 3.26, Hgb 9.9, Hct 29.4, Na 128 IS:HEPARIN SUBQ KEPPRA 1,000mg PROTONIX 40mg IVP PHENYTOIN 295ml IVPB VANCOMYCIN 125mg CEFEPIME HCI 55ml IVPB D5/ELECTROLYTES x1L IV MEROPENEM 55ml IVPB AMIKACIN SULFATE 113.28ml IV VANCOMYCIN 275mL IVPB PICC LINE INSERTION 01/09 ICU STATUS
--- NOTE | 2019-01-10 09:01 | NUR ---
RD ASSESSMENT & RECOMMENDATIONS SEE CARE ACTIVITY FOR COMPLETE ASSESSMENT DAILY ESTIMATED NEEDS: Needs based on Critical care, underweight, wound/ 41kg 28-35 kcals/kg 7548-0968 total kcals 1.25-2 g protein/kg 51-82 g total protein 25-30 mL/kg 6361-3981 total fluid mLs NUTRITION DIAGNOSIS: * Swallowing difficulty R/T respiratory status, dx of uncontrolled seizures as evidenced by trach/vent dep, PEG dep. * Increased kcal/prot needs R/T wound healing and underweight status as evidenced by admitted w/ sacrum non-blanchable erythema, low BMI per guidelines, pt @ 73% IBW. CURRENT TF:Jevity 1.2 @ 55ml/hr x 24hrs ENTERAL NUTRITION RECOMMENDATIONS: Glucerna 1.2 @ 50ml/hr x 24 hrs to provide 1200ml, 1440kcal, 72g prot, 966ml free water * Rec TF change to Glucerna 1.2 for improved BG control * Initiate Glucerna 1.2 @ 20ml/hr x 6 hrs, advance 10ml q 4-6 hrs as tolerated to goal rate * HOB over 30 degrees/ water flush per MD ADDITIONAL RECOMMENDATIONS: 1) Per SNF: HT=63", WT=90lbs (obtained 01/02/19) 2) Calibrated bedscale wt: conflicting wts, pt on P200 mattress 3) DISCONTINUE D5 IVF: Na trending down (128), TF @ goal, elev BGs 4) TF CHANGE ABOVE 5) Monitor BGs closely, need for long acting insulin- BGs in 200's 300's 6) Wound healing: continue Jasbir 1pkt BID, add Vit C 250mg QD 7) Consider probiotics BID -> +diarrhea
--- NOTE | 2019-01-10 09:20 | NUR ---
RADIOLOGY DEPT., CHEST X-RAY DONE.-P.DYE
[2019-01-10] MEDS: Phenytoin 1,000 MG in NS 275 ML IVPB SCH ×2 (09:51→21:10)
[2019-01-10] MEDS: levETIRAcetam 500mg/5ml Liquid GT SCH ×2 (09:51→21:08)
[2019-01-10] MEDS: Vancomycin oral 125mg/2.5ml ORAL SCH ×4 (09:51→21:09)
[2019-01-10] MEDS: Pantoprazole Inj IVP SCH (09:51)
[2019-01-10] MEDS: Heparin 5000 units/ml inj SUBQ SCH ×2 (09:53→21:22)
--- NOTE | 2019-01-10 10:00 | NUR ---
NURSE NOTES: turned and repositioned pt, oral care provided.
--- NOTE | 2019-01-10 10:24 | Pulmonolgy Critical Care Note ---
Critical Care - Asmt/Plan Problems: (1) Sepsis (2) Pneumonia (3) Anti-NMDA receptor encephalitis (4) Chronic respiratory failure (5) S/P percutaneous endoscopic gastrostomy (PEG) tube placement Respiratory: monitor respiratory rate, adjust FIO2, CXR Cardiac: continue pressors, continue to monitor HR/BP Renal: F/U I&O, keep IV fluid Infectious Disease: check cultures Gastrointestinal: continue feedings/current rate Endocrine: monitor blood sugar, check TSH Hematologic: transfuse if hgb<8.5 Neurologic: PRN Morphine, keep patient comfortable Affect: PRN ativan Disposition: keep in ICU Time Spent (Minutes): 40 Notes Reviewed: cardio Discussed with: nurses, consultants, immigration case manageremergency medical service manager - Objective Last 24 Hour Vital Signs Date Time Temp Pulse Resp B/P (MAP) Pulse Ox O2 Delivery O2 Flow Rate FiO2 01/10/19 10:00 98 18 110/58 (75) 99 01/10/19 09:17 100 19 30 01/10/19 09:00 100 18 129/83 (98) 99 01/10/19 08:00 Mechanical Ventilator 01/10/19 08:00 30 01/10/19 08:00 101 01/10/19 08:00 99.0 99 18 122/60 (80) 99 01/10/19 07:11 83 19 30 01/10/19 07:00 90 18 125/79 (94) 99 01/10/19 06:04 30 01/10/19 06:00 85 18 131/83 (99) 99 01/10/19 05:25 85 17 30 01/10/19 05:00 86 18 118/91 (100) 100 01/10/19 04:00 Mechanical Ventilator 01/10/19 04:00 30 01/10/19 04:00 94 01/10/19 04:00 102 17 120/74 (89) 98 01/10/19 03:26 100 16 30 01/10/19 03:00 94 16 109/70 (83) 100 01/10/19 02:00 87 19 112/70 (84) 100 01/10/19 01:20 98 17 97/62 (74) 99 01/10/19 01:03 90 17 30 01/10/19 01:00 93 18 99/54 (69) 100 01/10/19 00:40 88 20 136/84 (101) 99 01/10/19 00:20 89 17 117/71 (86) 99 01/10/19 00:00 Mechanical Ventilator 01/10/19 00:00 30 01/10/19 00:00 91 20 122/73 (89) 99 01/10/19 00:00 94 01/09/19 23:17 87 22 30 01/09/19 23:00 88 21 104/67 (79) 98 01/09/19 22:00 86 19 122/82 (95) 100 01/09/19 21:00 89 20 91/73 (79) 100 01/09/19 20:50 89 20 30 01/09/19 20:00 87 18 128/82 (97) 98 01/09/19 20:00 Mechanical Ventilator 01/09/19 20:00 30 01/09/19 20:00 94 01/09/19 19:00 89 19 123/95 (104) 100 01/09/19 18:51 89 17 30 01/09/19 18:00 80 19 122/80 (94) 100 01/09/19 17:18 86 18 30 01/09/19 17:00 78 19 113/77 (89) 100 01/09/19 16:00 85 19 121/68 (85) 100 01/09/19 16:00 30 01/09/19 16:00 77 19 107/72 (84) 100 01/09/19 16:00 84 01/09/19 16:00 Mechanical Ventilator 01/09/19 15:20 91 17 30 01/09/19 15:00 99.0 85 19 112/74 (87) 100 01/09/19 15:00 98.8 88 19 115/74 (88) 100 01/09/19 14:00 84 19 114/75 (88) 100 01/09/19 13:00 85 19 110/74 (86) 100 01/09/19 12:58 88 16 30 01/09/19 12:00 88 19 105/75 (85) 100 01/09/19 12:00 Mechanical Ventilator 01/09/19 12:00 88 01/09/19 12:00 30 01/09/19 11:00 97.7 80 19 103/55 (71) 100 01/09/19 10:36 86 16 30 Status: obtunded Condition: critical HEENT: atraumatic Lungs: clear, chest wall tender Heart: HR/BP stable Abdomen: soft, non-tender, feeding tube Extremities: no C/C/E Decubiti: location Accucheck: 361 Critical Care - Subjective ROS Limited/Unobtainable: Yes Condition: critical EKG Rhythm: Sinus Rhythm FI02: 30 Vent Support Breath Rate: 16 Vent Support Mode: AC Vent Tidal Volume: 450 Sputum Amount: Small PEEP: 5.0 PIP: 17 Tube Feeding Amount: 55 I&O: Intake and Output 01/09/19 01/10/19 18:59 06:59 Intake Total 1678.28 ml 2233.333 ml Output Total 1650 ml 1330 ml Balance 28.28 ml 903.333 ml Intake Free Water 160 ml IV Total 1018.28 ml 1358.333 ml Tube Feeding 660 ml 715 ml Output Urine Total 1650 ml 1330 ml # Bowel Movements 50 CXR: ET in good position Labs: Laboratory Tests Test 01/09/19 12:00 01/10/19 01:50 01/10/19 04:35 01/10/19 07:30 Vancomycin Level Trough 18.4 ug/mL (5.0-12.0) H Random Amikacin Level < 2.5 ug/mL White Blood Count 17.9 K/UL (4.8-10.8) H Red Blood Count 3.26 M/UL (4.70-6.10) L Hemoglobin 9.9 G/DL (14.2-18.0) L Hematocrit 29.4 % (42.0-52.0) L Mean Corpuscular Volume 90 FL (80-99) Mean Corpuscular Hemoglobin 30.5 PG (27.0-31.0) Mean Corpuscular Hemoglobin Concent 33.8 G/DL (32.0-36.0) Red Cell Distribution Width 14.0 % (11.6-14.8) Platelet Count 334 K/UL (150-450) Mean Platelet Volume 4.6 FL (6.5-10.1) L Neutrophils (%) (Auto) 72.5 % (45.0-75.0) Lymphocytes (%) (Auto) 19.7 % (20.0-45.0) L Monocytes (%) (Auto) 6.6 % (1.0-10.0) Eosinophils (%) (Auto) 0.7 % (0.0-3.0) Basophils (%) (Auto) 0.5 % (0.0-2.0) Sodium Level 128 MMOL/L (136-145) L Potassium Level 4.5 MMOL/L (3.5-5.1) Chloride Level 93 MMOL/L (98-107) L Carbon Dioxide Level 27 MMOL/L (21-32) Anion Gap 8 mmol/L (5-15) Blood Urea Nitrogen 8 mg/dL (7-18) Creatinine 0.6 MG/DL (0.55-1.30) Estimat Glomerular Filtration Rate > 60 mL/min (>60) Glucose Level 345 MG/DL (74-106) #H Hemoglobin A1c 5.9 % (4.3-6.0) Calcium Level 8.2 MG/DL (8.5-10.1) L Phosphorus Level 3.0 MG/DL (2.5-4.9) Magnesium Level 1.8 MG/DL (1.8-2.4) Total Bilirubin 0.3 MG/DL (0.2-1.0) Aspartate Amino Transf (AST/SGOT) 12 U/L (15-37) L Alanine Aminotransferase (ALT/SGPT) 20 U/L (12-78) Alkaline Phosphatase 79 U/L (46-116) Total Protein 6.8 G/DL (6.4-8.2) Albumin 2.4 G/DL (3.4-5.0) L Globulin 4.4 g/dL Albumin/Globulin Ratio 0.5 (1.0-2.7) L Arterial Blood pH 7.415 (7.350-7.450) Arterial Blood Partial Pressure CO2 39.6 mmHg (35.0-45.0) Arterial Blood Partial Pressure O2 96.4 mmHg (75.0-100.0) Arterial Blood HCO3 24.8 mmol/L (22.0-26.0) Arterial Blood Oxygen Saturation 97.2 % (95-100) Arterial Blood Base Excess 0.3 (-2-2) Jurgen Test Positive Babita Hardy MD January 10, 2019 10:24
[2019-01-10] MEDS ORDERED: Tubing IV Secondary IV ONE (10:41)
[2019-01-10] MEDS ORDERED: NS 275ml ONE (10:41)
[2019-01-10] MEDS: LORazepam Inj 2mg/ml 1ml IV PRN (11:13)
--- NOTE | 2019-01-10 11:13 | NUR ---
NURSE NOTES: PRN Ativan 2mg IV given for intermittent seizure activity. Will closely monitor pt.
--- NOTE | 2019-01-10 12:08 | Diagnostic Imaging Report ---
Indication: Dyspnea Technique: XRAY Chest 1v Comparison: 01/09/2019 Findings: Heart size is stable. Interval placement of a right arm PICC line with the catheter tip in the region of the lower SVC. Tracheostomy tube is noted. There is worsening aeration with increasing hazy opacities in the left lung. No pneumothorax. No pleural effusion. Elevation of the left hemidiaphragm is again noted. Prominent colonic gas is noted. Gastrostomy tube noted. Osseous structures demonstrate no abnormality. Impression: Interval worsening of aeration with increased haziness of the pulmonary vascularity, more pronounced on the left with a more confluent perihilar opacities. Findings may be related to fluid overload/CHF. Clinical correlation and follow-up is recommended.
[2019-01-10] MEDS ORDERED: Midodrine 10mg tab ORAL PRN (13:00)
[2019-01-10] MEDS: NS IV SCH (13:08)
[2019-01-10] MEDS: AMIKACIN IV SCH (13:08)
--- NOTE | 2019-01-10 14:00 | NUR ---
NURSE NOTES: Pt hypotensive. Dopamine started at 20 mcg, BP 80/60. Will continue plan of care.
--- NOTE | 2019-01-10 15:09 | General Progress Note ---
Assessment/Plan Status: stable Assessment/Plan: Assessment and Recs: # Anemia of chronic disease due to underlying chronic medical issues, multifactorial --> Anemia workup has been reviewed, no dory noted --> No evidence of hemolysis is noted, peripheral smear has been reviewed. --> Hgb goal >7. Transfuse prn. --> Epogen or iron at this time is not particularly indicated --> Medications have been reviewed --> evaluate with Gi team prn --> transfuse if hgb is < 7 (will trend CBC daily) --> ferritin is 378, tibc is 201 => hgb trend 10.4-->10.3-->10.6---> 9.9 # Thrombocytopenia - potential causes multifactorial, evaluate liver and viral etiologies to begin, also could be related to underlying medications patient has received. --> Hep panel and HIV is negative --> US abd shows borderline splenomegaly --> Peripheral smear ordered to evaluate for blasts /schistocytes and none noted --> abx and other meds have been reviewed --> ok for ppx if plt >50k w/ either heparin or lovenox --> Trend 130k-->121k-->372k # Leukocytosis with cxr showing left infitrate, cmp is unremarkable, initial lactate elevated --> peripheral smear reviewed --> wbc trend 12-->9-->22-->18k # Sepsis r/o undelrying infection --> on abx, as per id # Pneumonia on abx # Anti-NMDA rec --> to be transferred to [facility] # h/o seizures. --> Valproic acid level undetected. No tonic/clonic seizure activity and Keppra had been given --> per neuro # Respiratory with vent/trach --> as per Antony santos # Dysphagia s/p peg The timing of this note does not necessarily reflect the time of the patient was seen. Greatly appreciate consultation! Subjective Allergies: Coded Allergies: No Known Allergies (Unverified , 01/02/19) Subjective 5/2: remains in the icu, no f/c, no night sweats, remains on abx 5/3: in icu, remains on trach/vent, no sig bleeding 01/07: no events noted, no f/c, on trach/vent, remains in the icu 5/6: no events to reported, turned, on vent 01/09: labs reviewed, pending transfer to [facility] 01/10: remains in the icu, given atian prn Objective Last 24 Hour Vital Signs Date Time Temp Pulse Resp B/P (MAP) Pulse Ox O2 Delivery O2 Flow Rate FiO2 01/10/19 12:48 70 16 30 01/10/19 11:24 89 16 30 01/10/19 10:00 98 18 110/58 (75) 99 01/10/19 09:17 100 19 30 01/10/19 09:00 100 18 129/83 (98) 99 01/10/19 08:00 Mechanical Ventilator 01/10/19 08:00 30 01/10/19 08:00 101 01/10/19 08:00 99.0 99 18 122/60 (80) 99 01/10/19 07:11 83 19 30 01/10/19 07:00 90 18 125/79 (94) 99 01/10/19 06:04 30 01/10/19 06:00 85 18 131/83 (99) 99 01/10/19 05:25 85 17 30 01/10/19 05:00 86 18 118/91 (100) 100 01/10/19 04:00 Mechanical Ventilator 01/10/19 04:00 30 01/10/19 04:00 94 01/10/19 04:00 102 17 120/74 (89) 98 01/10/19 03:26 100 16 30 01/10/19 03:00 94 16 109/70 (83) 100 01/10/19 02:00 87 19 112/70 (84) 100 01/10/19 01:20 98 17 97/62 (74) 99 01/10/19 01:03 90 17 30 01/10/19 01:00 93 18 99/54 (69) 100 01/10/19 00:40 88 20 136/84 (101) 99 01/10/19 00:20 89 17 117/71 (86) 99 01/10/19 00:00 Mechanical Ventilator 01/10/19 00:00 30 01/10/19 00:00 91 20 122/73 (89) 99 01/10/19 00:00 94 01/09/19 23:17 87 22 30 01/09/19 23:00 88 21 104/67 (79) 98 01/09/19 22:00 86 19 122/82 (95) 100 01/09/19 21:00 89 20 91/73 (79) 100 01/09/19 20:50 89 20 30 01/09/19 20:00 87 18 128/82 (97) 98 01/09/19 20:00 Mechanical Ventilator 01/09/19 20:00 30 01/09/19 20:00 94 01/09/19 19:00 89 19 123/95 (104) 100 01/09/19 18:51 89 17 30 01/09/19 18:00 80 19 122/80 (94) 100 01/09/19 17:18 86 18 30 01/09/19 17:00 78 19 113/77 (89) 100 01/09/19 16:00 85 19 121/68 (85) 100 01/09/19 16:00 30 01/09/19 16:00 77 19 107/72 (84) 100 01/09/19 16:00 84 01/09/19 16:00 Mechanical Ventilator 01/09/19 15:20 91 17 30 01/09/19 15:00 99.0 85 19 112/74 (87) 100 01/09/19 15:00 98.8 88 19 115/74 (88) 100 Intake and Output 01/09/19 01/10/19 19:00 07:00 Intake Total 1678.28 ml 2233.333 ml Output Total 1600 ml 1320 ml Balance 78.28 ml 913.333 ml Intake Free Water 160 ml IV Total 1018.28 ml 1358.333 ml Tube Feeding 660 ml 715 ml Output Urine Total 1600 ml 1320 ml # Bowel Movements 50 Laboratory Tests 01/10/19 01:50: Random Amikacin Level < 2.5 01/10/19 04:35: White Blood Count 17.9H, Red Blood Count 3.26L, Hemoglobin 9.9L, Hematocrit 29.4L, Mean Corpuscular Volume 90, Mean Corpuscular Hemoglobin 30.5, Mean Corpuscular Hemoglobin Concent 33.8, Red Cell Distribution Width 14.0, Platelet Count 334, Mean Platelet Volume 4.6L, Neutrophils (%) (Auto) 72.5, Lymphocytes ( %) (Auto) 19.7L, Monocytes (%) (Auto) 6.6, Eosinophils (%) (Auto) 0.7, Basophils (%) (Auto) 0.5, Sodium Level 128L, Potassium Level 4.5, Chloride Level 93L, Carbon Dioxide Level 27, Anion Gap 8, Blood Urea Nitrogen 8, Creatinine 0.6, Estimat Glomerular Filtration Rate > 60, Glucose Level 345#H, Hemoglobin A1c 5.9, Calcium Level 8.2L, Phosphorus Level 3.0, Magnesium Level 1.8, Total Bilirubin 0.3, Aspartate Amino Transf (AST/SGOT) 12L, Alanine Aminotransferase (ALT/SGPT) 20, Alkaline Phosphatase 79, Total Protein 6.8, Albumin 2.4L, Globulin 4.4, Albumin/Globulin Ratio 0.5L 01/10/19 07:30: Arterial Blood pH 7.415, Arterial Blood Partial Pressure CO2 39.6, Arterial Blood Partial Pressure O2 96.4, Arterial Blood HCO3 24.8, Arterial Blood Oxygen Saturation 97.2, Arterial Blood Base Excess 0.3, Jurgen Test Positive Height (Feet): 5 Height (Inches): 5.00 Weight (Pounds): 130 Objective General Appearance: moderate distress, Chronically Ill Head: normocephalic, atraumatic Eyes: bilateral eye normal inspection, bilateral eye PERRL ENT: dry mucus membranes, other - constant motor movement of lips and mough Neck: supple, tracheotomy/vent Respiratory: respiratory distress, rales, rhonci ++ trach/vent Cardiovascular: no edema, no JVD, tachycardia, 2+ radial (R) GI: ++ peg : other - Uncircumcised Musculoskeletal: other - Atrophy Neurologic: other - Not responding to exter with fasciculations of lips Psychiatric: other - Stupor Alok Thompson MD January 10, 2019 15:08
[2019-01-10] MEDS ORDERED: DOPamine 400mg/250ml 250 ML IV SCH (15:15)
[2019-01-10] MEDS: Cefepime HCl 2 GM in NS 55 ML IVPB SCH (16:00)
--- NOTE | 2019-01-10 16:00 | NUR ---
NURSE NOTES: Pt still hypotensive. Got stand by order for Levo
--- NOTE | 2019-01-10 17:28 | NUR ---
HVAC LEAD NOTES SPOKE WITH THE TRANSFER CENTER @ [facility], INQUIRY FAXED. DR PIMENTEL MADE AWARE. Addendum: 01/10/19 at 1800 by MARIA DEL CARMEN RYDER RN RN Received call from Natty from the [facility]SFER [facility], REQUESTING ADDITIONAL INFORMATION. INFORMATION FAXED.
[2019-01-10 17:59] LABS: APPEARANCE,URINE SLIGHTLY CLOUDY; BILIRUBIN, URINE NEGATIVE (NEGATIVE); COLOR,URINE PALE YELLOW; GLUCOSE, URINE (UA) 4+ (NEGATIVE); KETONES,URINE NEGATIVE (NEGATIVE); LEUKOCYTE ESTERASE ,URINE NEGATIVE (NEGATIVE); NITRITE,URINE NEGATIVE (NEGATIVE); PH,URINE 5 (4.5-8.0); PROTEIN,URINE 1+ (NEGATIVE); UROBILINOGEN,URINE NORMAL MG/DL (0.0-1.0)
--- NOTE | 2019-01-10 18:00 | NUR ---
NURSE NOTES: Levo started at 6 mcg/hr. BP 98/50. will continue to monitor
--- NOTE | 2019-01-10 18:30 | Infectious Diseases Prog Note ---
Assessment/Plan Assessment/Plan The patient is a 23-year-old male with Shock- r/o fungemia leukocytosis, increased, now improving -01/06 u/a neg; 01/10 u/a wbc p, nit neg, leuk neg Probable pNA -01/10 CXR: Interval worsening of aeration with increased haziness of the pulmonary vascularity, more pronounced on the left with a more confluent perihilar opacities. Findings may be related to fluid overload/CHF. Clinical correlation and follow-up is recommended. -sp cx MDR PsA (R Imipenem, Ceftazidime; I levaquin; S Cefepime, Zosyn, Amikacin); 01/05 CXR no acute disease blood culture, CoNS ? contaminant, will treat as true bacteremia -repeat Bcx 01/05 NTD -2d Echo: limited study- no obvious vegetations Fever, (on cooling blanket ) due to sepsis vs relapse of anti-NMDA encephalitis - SP probable Ventilator associated pneumonia Diarrhea C Diff neg ( will treat for C Diff in-view of sever watery diarrhea HIV Hep panel : neg Anemia. Thrombocytopenia. Seizure disorder History of recent seizure x1 year. 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 sp PICC line 01/09/19 PLAN: Cont oral Vanco d# 6 ( empirically as wbc increased ) Cont Cefepime #2 (abx d #8) and add Amikacin #2 in view of sp cx results D/c empiric IV Vancomycin d# 8/7-10 Start empiric Micafungin pending repeat Bcx to cover for fungemia in the setting of shock -01/09 SP Meropenem #2 -/ SP Cefepime #6 f/u Repeat blood culture Monitor CBC and BMP cooling blanket Plan for LP once more stable Neuro f/u HIV PCR, lipase am Subjective Allergies: Coded Allergies: No Known Allergies (Unverified , 01/02/19) Subjective afebrile wbc improving Bcx NTD started on dopamine and levophed Objective Vital Signs Last 24 Hour Vital Signs Date Time Temp Pulse Resp B/P (MAP) Pulse Ox O2 Delivery O2 Flow Rate FiO2 01/10/19 17:52 87/46 01/10/19 17:10 90 17 30 01/10/19 17:00 91 18 87/46 (60) 92 01/10/19 16:45 92 20 85/35 (52) 91 01/10/19 16:30 93 20 93/43 (60) 90 01/10/19 16:15 74 19 83/40 (54) 90 01/10/19 16:00 30 01/10/19 16:00 Mechanical Ventilator 01/10/19 16:00 98.0 99 18 90/43 (59) 99 01/10/19 16:00 92 01/10/19 15:43 80/58 01/10/19 15:21 69 16 30 01/10/19 15:00 88 18 80/69 (73) 99 01/10/19 14:00 92 18 85/50 (62) 99 01/10/19 13:00 90 18 89/66 (74) 99 01/10/19 12:48 70 16 30 01/10/19 12:00 Mechanical Ventilator 01/10/19 12:00 98.1 99 18 100/60 (73) 99 01/10/19 12:00 89 01/10/19 12:00 30 01/10/19 11:24 89 16 30 01/10/19 11:00 89 18 98/58 (71) 99 01/10/19 10:00 98 18 110/58 (75) 99 01/10/19 09:17 100 19 30 01/10/19 09:00 100 18 129/83 (98) 99 01/10/19 08:00 Mechanical Ventilator 01/10/19 08:00 30 01/10/19 08:00 101 01/10/19 08:00 99.0 99 18 122/60 (80) 99 01/10/19 07:11 83 19 30 01/10/19 07:00 90 18 125/79 (94) 99 01/10/19 06:04 30 01/10/19 06:00 85 18 131/83 (99) 99 01/10/19 05:25 85 17 30 01/10/19 05:00 86 18 118/91 (100) 100 01/10/19 04:00 Mechanical Ventilator 01/10/19 04:00 30 01/10/19 04:00 94 01/10/19 04:00 102 17 120/74 (89) 98 01/10/19 03:26 100 16 30 01/10/19 03:00 94 16 109/70 (83) 100 01/10/19 02:00 87 19 112/70 (84) 100 01/10/19 01:20 98 17 97/62 (74) 99 01/10/19 01:03 90 17 30 01/10/19 01:00 93 18 99/54 (69) 100 01/10/19 00:40 88 20 136/84 (101) 99 01/10/19 00:20 89 17 117/71 (86) 99 01/10/19 00:00 Mechanical Ventilator 01/10/19 00:00 30 01/10/19 00:00 91 20 122/73 (89) 99 01/10/19 00:00 94 01/09/19 23:17 87 22 30 01/09/19 23:00 88 21 104/67 (79) 98 01/09/19 22:00 86 19 122/82 (95) 100 01/09/19 21:00 89 20 91/73 (79) 100 01/09/19 20:50 89 20 30 01/09/19 20:00 87 18 128/82 (97) 98 01/09/19 20:00 Mechanical Ventilator 01/09/19 20:00 30 01/09/19 20:00 94 01/09/19 19:00 89 19 123/95 (104) 100 01/09/19 18:51 89 17 30 Height (Feet): 5 Height (Inches): 5.00 Weight (Pounds): 130 Objective Status: awake Condition: critical HEENT: atraumatic Neck: full ROM Lungs: chest wall tender Heart: HR/BP stable Abdomen: soft, active bowel sounds Extremities: no C/C/E Laboratory Tests Test 01/10/19 01:50 01/10/19 04:35 01/10/19 07:30 01/10/19 17:21 Random Amikacin Level < 2.5 ug/mL White Blood Count 17.9 K/UL (4.8-10.8) H Red Blood Count 3.26 M/UL (4.70-6.10) L Hemoglobin 9.9 G/DL (14.2-18.0) L Hematocrit 29.4 % (42.0-52.0) L Mean Corpuscular Volume 90 FL (80-99) Mean Corpuscular Hemoglobin 30.5 PG (27.0-31.0) Mean Corpuscular Hemoglobin Concent 33.8 G/DL (32.0-36.0) Red Cell Distribution Width 14.0 % (11.6-14.8) Platelet Count 334 K/UL (150-450) Mean Platelet Volume 4.6 FL (6.5-10.1) L Neutrophils (%) (Auto) 72.5 % (45.0-75.0) Lymphocytes (%) (Auto) 19.7 % (20.0-45.0) L Monocytes (%) (Auto) 6.6 % (1.0-10.0) Eosinophils (%) (Auto) 0.7 % (0.0-3.0) Basophils (%) (Auto) 0.5 % (0.0-2.0) Sodium Level 128 MMOL/L (136-145) L Potassium Level 4.5 MMOL/L (3.5-5.1) Chloride Level 93 MMOL/L (98-107) L Carbon Dioxide Level 27 MMOL/L (21-32) Anion Gap 8 mmol/L (5-15) Blood Urea Nitrogen 8 mg/dL (7-18) Creatinine 0.6 MG/DL (0.55-1.30) Estimat Glomerular Filtration Rate > 60 mL/min (>60) Glucose Level 345 MG/DL (74-106) #H Hemoglobin A1c 5.9 % (4.3-6.0) Calcium Level 8.2 MG/DL (8.5-10.1) L Phosphorus Level 3.0 MG/DL (2.5-4.9) Magnesium Level 1.8 MG/DL (1.8-2.4) Total Bilirubin 0.3 MG/DL (0.2-1.0) Aspartate Amino Transf (AST/SGOT) 12 U/L (15-37) L Alanine Aminotransferase (ALT/SGPT) 20 U/L (12-78) Alkaline Phosphatase 79 U/L (46-116) Total Protein 6.8 G/DL (6.4-8.2) Albumin 2.4 G/DL (3.4-5.0) L Globulin 4.4 g/dL Albumin/Globulin Ratio 0.5 (1.0-2.7) L Arterial Blood pH 7.415 (7.350-7.450) Arterial Blood Partial Pressure CO2 39.6 mmHg (35.0-45.0) Arterial Blood Partial Pressure O2 96.4 mmHg (75.0-100.0) Arterial Blood HCO3 24.8 mmol/L (22.0-26.0) Arterial Blood Oxygen Saturation 97.2 % (95-100) Arterial Blood Base Excess 0.3 (-2-2) Jurgen Test Positive Urine Color Pale yellow Urine Appearance Slightly cloudy Urine pH 5 (4.5-8.0) Urine Specific [place] 1.015 (1.005-1.035) Urine Protein 1+ (NEGATIVE) H Urine Glucose (UA) 4+ (NEGATIVE) H Urine Ketones Negative (NEGATIVE) Urine Blood 2+ (NEGATIVE) H Urine Nitrite Negative (NEGATIVE) Urine Bilirubin Negative (NEGATIVE) Urine Urobilinogen Normal MG/DL (0.0-1.0) Urine Leukocyte Esterase Negative (NEGATIVE) Urine RBC Pending Urine WBC Pending Urine Squamous Epithelial Cells Pending Urine Bacteria Pending Urine Random Sodium 47 mmol/L (20-110) Urine Creatinine 32.3 MG/DL (30.0-125.0) Current Medications Medications (Trade) Dose Ordered Sig/Cassidy Route PRN Reason Start Time Stop Time Status Last Admin Dose Admin Acetaminophen (Tylenol) 650 mg Q4H PRN GT Mild Pain/Temp > 100.5 01/03/19 14:00 02/02/19 13:59 01/08/19 08:46 Amikacin Protocol (Amikacin pharmacy to dose) 1 ea DAILY PRN MISC Per rx protocol 01/09/19 11:30 02/08/19 11:29 Amikacin Sulfate 820 mg/Sodium Chloride 113.28 ml @ 113.28 mls/hr Q24H IV 01/09/19 13:00 01/16/19 12:59 01/10/19 13:08 Cefepime HCl 2 gm/ Sodium Chloride 55 ml @ 110 mls/hr Q12HR@0400,1600 IVPB 01/10/19 16:00 01/17/19 15:59 01/10/19 16:00 Chlorhexidine Gluconate (Becca-Hex 2%) 1 applic DAILY@2000 TOPIC 01/09/19 20:00 02/08/19 19:59 01/09/19 20:00 Dextrose (Dextrose 50%) 25 ml Q30M PRN IV Hypoglycemia 01/09/19 19:15 02/08/19 19:14 Dextrose (Dextrose 50%) 50 ml Q30M PRN IV Hypoglycemia 01/09/19 19:15 02/08/19 19:14 Dopamine HCl/ Dextrose 250 ml @ 0 mls/hr Q24H IV 01/10/19 15:15 02/09/19 15:14 01/10/19 15:43 Heparin Sodium (Porcine) (Heparin 5000 units/ml) 5,000 units EVERY 12 HOURS SUBQ 01/02/19 21:00 02/01/19 20:59 01/10/19 09:53 Insulin Aspart (NovoLOG) BEFORE MEALS AND HS SUBQ 01/09/19 21:00 02/08/19 20:59 01/10/19 16:30 Levetiracetam (Keppra) 1,000 mg Q12HR GT 01/03/19 21:00 02/02/19 08:59 01/10/19 09:51 Lorazepam (Ativan 2mg/ml 1ml) 2 mg Q1H PRN IV For seizure 01/10/19 10:30 01/17/19 10:29 01/10/19 11:13 Midodrine (Pro-Amatine) 10 mg Q6H PRN ORAL for BP <90 01/10/19 13:00 02/09/19 12:59 01/10/19 13:09 Norepinephrine Bitartrate 4 mg/ Dextrose 250 ml @ 0 mls/hr Q24H IV 01/10/19 17:45 02/09/19 17:44 01/10/19 17:52 Pantoprazole (Protonix) 40 mg DAILY IVP 01/03/19 09:00 02/02/19 08:59 01/10/19 09:51 Phenytoin 1000 mg/ Sodium Chloride 295 ml @ 295 mls/hr Q12HR IVPB 01/04/19 21:45 02/03/19 21:44 01/10/19 09:51 Vancomycin HCl (Firvanq) 125 mg FOUR TIMES A DAY ORAL 01/05/19 21:00 01/12/19 20:59 01/10/19 18:13 Vancomycin HCl (Vanco rx to dose) 1 ea DAILY PRN MISC Per rx protocol 01/03/19 20:30 02/02/19 20:29 Vancomycin HCl/ Dextrose 275 ml @ 183.333 mls/hr Q6HR IVPB 01/08/19 12:00 01/13/19 11:59 01/10/19 18:13 Nicky Gautam M.D. January 10, 2019 18:30
--- NOTE | 2019-01-10 19:17 | NUR ---
HAND-OFF: Report given to ILA Johnson.
--- NOTE | 2019-01-10 19:30 | NUR ---
NURSE NOTES: Recvd.on a vent.TRACHE-see settings.lungs few scatt Rh.P.Ox-92-95%.HOB elev.Suctioned.NS Lavaged.See Neuro assessment.Noted with some facial grimace on suctioning and some involuntary upper ext.movement.Flaccid,stiff lower ext.No SZ.activity.Pos. chg.GT-Feeding in progress.See V/S.LEVO.and DOPA.drip inf.TiT.To BPS>90.Family at .
[2019-01-10] MEDS ORDERED: Micafungin 100 MG in NS 110 ML IVPB SCH (20:00)
[2019-01-10] MEDS: Dyna-Hex 2% Top Sol 2oz TOPIC SCH (20:06)
[2019-01-10] MEDS ORDERED: DOPamine 400mg/250ml 250 ML IV ONE (21:39)
--- NOTE | 2019-01-10 22:00 | NUR ---
NURSE NOTES: HS care provided.Pos.chg.Kept comfortable.Suctioned.Due meds Admin.FSBS-[id number],covered.Neuro status same.Cont.Plan of care.
[2019-01-11] VITALS (14 sets, daily range): BP systolic 54–98; BP diastolic 27–64
--- NOTE | 2019-01-11 00:03 | Neurology Progress Note ---
Interim History Interim History ROS Limited/Unobtainable: Yes Complaints: NMDA Encephalitis Events: This visit was conducted on January 10, 2019 under supervision ofDR. Aden Interim History No seizure activity noted- abnormal mouth movements and facial expressions persist Review of Systems All Systems: reviewed and negative except above Objective Physical Exam Last Vital Signs Date Time Temp Pulse Resp B/P (MAP) Pulse Ox O2 Delivery O2 Flow Rate FiO2 01/10/19 23:14 93 22 50 01/10/19 21:00 103/62 (76) 94 01/10/19 20:00 Mechanical Ventilator 01/10/19 20:00 99.2 01/02/19 18:45 55.0 Laboratory Tests Test 01/10/19 01:50 01/10/19 04:35 01/10/19 07:30 01/10/19 17:21 Random Amikacin Level < 2.5 ug/mL White Blood Count 17.9 K/UL (4.8-10.8) H Red Blood Count 3.26 M/UL (4.70-6.10) L Hemoglobin 9.9 G/DL (14.2-18.0) L Hematocrit 29.4 % (42.0-52.0) L Mean Corpuscular Volume 90 FL (80-99) Mean Corpuscular Hemoglobin 30.5 PG (27.0-31.0) Mean Corpuscular Hemoglobin Concent 33.8 G/DL (32.0-36.0) Red Cell Distribution Width 14.0 % (11.6-14.8) Platelet Count 334 K/UL (150-450) Mean Platelet Volume 4.6 FL (6.5-10.1) L Neutrophils (%) (Auto) 72.5 % (45.0-75.0) Lymphocytes (%) (Auto) 19.7 % (20.0-45.0) L Monocytes (%) (Auto) 6.6 % (1.0-10.0) Eosinophils (%) (Auto) 0.7 % (0.0-3.0) Basophils (%) (Auto) 0.5 % (0.0-2.0) Sodium Level 128 MMOL/L (136-145) L Potassium Level 4.5 MMOL/L (3.5-5.1) Chloride Level 93 MMOL/L (98-107) L Carbon Dioxide Level 27 MMOL/L (21-32) Anion Gap 8 mmol/L (5-15) Blood Urea Nitrogen 8 mg/dL (7-18) Creatinine 0.6 MG/DL (0.55-1.30) Estimat Glomerular Filtration Rate > 60 mL/min (>60) Glucose Level 345 MG/DL (74-106) #H Hemoglobin A1c 5.9 % (4.3-6.0) Calcium Level 8.2 MG/DL (8.5-10.1) L Phosphorus Level 3.0 MG/DL (2.5-4.9) Magnesium Level 1.8 MG/DL (1.8-2.4) Total Bilirubin 0.3 MG/DL (0.2-1.0) Aspartate Amino Transf (AST/SGOT) 12 U/L (15-37) L Alanine Aminotransferase (ALT/SGPT) 20 U/L (12-78) Alkaline Phosphatase 79 U/L (46-116) Total Protein 6.8 G/DL (6.4-8.2) Albumin 2.4 G/DL (3.4-5.0) L Globulin 4.4 g/dL Albumin/Globulin Ratio 0.5 (1.0-2.7) L Arterial Blood pH 7.415 (7.350-7.450) Arterial Blood Partial Pressure CO2 39.6 mmHg (35.0-45.0) Arterial Blood Partial Pressure O2 96.4 mmHg (75.0-100.0) Arterial Blood HCO3 24.8 mmol/L (22.0-26.0) Arterial Blood Oxygen Saturation 97.2 % (95-100) Arterial Blood Base Excess 0.3 (-2-2) Jurgen Test Positive Urine Color Pale yellow Urine Appearance Slightly cloudy Urine pH 5 (4.5-8.0) Urine Specific [place] 1.015 (1.005-1.035) Urine Protein 1+ (NEGATIVE) H Urine Glucose (UA) 4+ (NEGATIVE) H Urine Ketones Negative (NEGATIVE) Urine Blood 2+ (NEGATIVE) H Urine Nitrite Negative (NEGATIVE) Urine Bilirubin Negative (NEGATIVE) Urine Urobilinogen Normal MG/DL (0.0-1.0) Urine Leukocyte Esterase Negative (NEGATIVE) Urine RBC 2-4 /HPF (0 - 0) H Urine WBC 0-2 /HPF (0 - 0) Urine Squamous Epithelial Cells Occasional /LPF Urine Amorphous Sediment Moderate /LPF (NONE) H Urine Bacteria Moderate /HPF (NONE) H Urine Random Sodium 47 mmol/L (20-110) Urine Creatinine 32.3 MG/DL (30.0-125.0) General: other Head: other Neck: other Neurologic Exam Mental Status: other Speech: other Language: other Cranial Nerve II: other Cranial Nerves III, IV, : other Cranial Nerve V: other Cranial Nerve VII: other Cranial Nerve VIII: other Cranial Nerve IX: other Cranial Nerve XI: other Cranial Nerve XII: other Motor System: other Sensory: other Coordination: other - Eyes opening intermittently without tracking to noxious stimuli. Decerebrate posturing in UEs to noxious stim. Triple flexing in LEs to stim. Pupils briskly reactive. Gag intact to trach suction. Impression/Recommendations Problems: (1) Seizure disorder (2) Sepsis (3) Anti-NMDA receptor encephalitis (4) Chronic respiratory failure (5) Status post tracheostomy (6) S/P percutaneous endoscopic gastrostomy (PEG) tube placement Status: stable Recommendations EEG ordered - no new seizures recorded as of January 09, 2019 with no significant changes in exam or recorded encephalopathy. LP ordered Test for : Glucose Protein Culture/Sensitivity Oligoclonal Bands Coccoides Anti NMDA antibody HSV Maintain normothermia Commence Broad spectrum Abx Na 135-145 Maintain normoglycemia 1g Phenytoin BID to continue 1-2mg Ativan Q1-2 hrs PRN for seizure activity. IV Keppra 1g BID Check Keppra serum level Record/ report all seizure activity. Q hr Neuro checks . Advisable to commence Rituxan DREA for induction phase x 2 weeks . Higher level of Care requested- awaiting Case Management and coordination of benefits for access to - will query [facility] Nell Bragg N.P. January 11, 2019 00:03
--- NOTE | 2019-01-11 00:10 | NUR ---
NURSE NOTES: Repositioned,suctioned.Neuro status same.GT-Feeding Maki.F/Cath Patent diuresis well.See V/S.Scope rhythm same.Pressors at same rate.Cont Plan of care.
--- NOTE | 2019-01-11 01:00 | Progress Note ---
DATE: 01/10/2019 NOTE: POOR AUDIO SUBJECTIVE: The patient remained responds to tactile but not to auditory or visual stimuli. He has intermittent seizures respond to Ativan. He has autoimmune encephalopathy but immunosuppression done in [facility] . PHYSICAL EXAMINATION: VITAL SIGNS: Blood pressure is 110/58, pulse 98, respiratory rate 18, and temperature is 99. HEENT: Eyes were normal. ENT, mucous membranes were moist and intact. NECK: Supple with no JVD without lymph nodes. LUNGS: Clear. HEART: Normal sounds with regular heartbeats. ABDOMEN: Soft and nontender with normal bowel sounds. Gastrostomy site is clean. EXTREMITIES: Warm without cyanosis, clubbing, or edema. LABORATORY AND DIAGNOSTIC DATA: Hemoglobin 9.9, hematocrit 29.4, MCV of 90, WBC of 17.9, and platelets 334. His BUN and creatinine are 8 and 0.6 respectively. Sodium is 138, potassium 4.5, chloride 93. CO2 is 27. His hemoglobin . SGOT, SGPT, alkaline phosphatase are normal. His albumin is 2.4 and total protein 6.8. IMPRESSION: The patient has autoimmune encephalopathy. We are waiting for approval for the patient to be transferred to [facility] for treatment with rituximab and the patient treated . Repeat laboratory tests will be done in the a.m. Klever Leung M.D. DR: King JOB#: [id number] CC:
[2019-01-11] MEDS: LORazepam Inj 2mg/ml 1ml IV PRN (03:07)
--- NOTE | 2019-01-11 03:08 | NUR ---
NURSE NOTES: Noted patient to have tonic clonic seizure about 10 secs x3 times. PRN ativan given. FiO2 increased to 100% during the seizure
[2019-01-11] MEDS: Cefepime HCl 2 GM in NS 55 ML IVPB SCH (04:00)
--- NOTE | 2019-01-11 04:24 | NUR ---
CODE BLUE: See Code sheet which remains on paper.pls see resuscitation record
--- NOTE | 2019-01-11 04:24 | NUR ---
RESPIRATORY NOTE: Pt began to seizure for 10 secs x3. Increased FiO2 to 100%. At 0424, pt went bradycardic and coded. No pulse was noted. Assisted in ACLS protocol including chest compressions and bagging pt on 15 L 100% FiO2. After about 10 minutes of compressions, a pulse was discovered. Pt was put back on the vent. Will continue to monitor closely.
--- NOTE | 2019-01-11 04:30 | NUR ---
NURSE NOTES: family member, tiana ashley called and notified him of patient's condition
--- NOTE | 2019-01-11 04:30 | NUR ---
NURSE NOTES: Harish down on equipment monitor phototypesetting,checked no palpable pulse,CODED.See Code Blue sheet.
--- NOTE | 2019-01-11 04:40 | NUR ---
NURSE NOTES: dr. vishnu gomez called to notify of the code blue,no answer
[2019-01-11 04:55] LABS: HEMATOCRIT 28.3 % (42.0-52.0); HEMOGLOBIN 9.8 G/DL (14.2-18.0); MEAN CORPUSCULAR VOLUME 88 FL (80-99); PLATELET COUNT 325 K/UL (150-450); RED BLOOD COUNT 3.19 M/UL (4.70-6.10); RED CELL DISTRIBUTION WIDTH 13.5 % (11.6-14.8)
--- NOTE | 2019-01-11 05:00 | NUR ---
NURSE NOTES: See V/S.DOPA.and LEVO drip at max.rate. made aware.Stated to call Dodie GerberFamily called.made aware.
--- NOTE | 2019-01-11 05:11 | Emergency Room Report ---
History of Present Illness General Chief Complaint: Seizure Source: Family Member, Medical Record, EMS Present Illness Allergies: Coded Allergies: No Known Allergies (Unverified , 01/02/19) Nursing Documentation-H Hx Cardiac Problems: No Hx Cancer: No Hx Seizures: Yes Physical Exam Vital Signs Date Time Temp Pulse Resp B/P (MAP) Pulse Ox O2 Delivery O2 Flow Rate FiO2 01/07/19 07:00 99 21 127/94 (105) 100 01/07/19 07:01 30 01/07/19 08:00 Mechanical Ventilator 01/07/19 08:00 98.5 Procedures CPR/Code Blue CPR/Code Blue Narrative I was contacted for patient after CODE BLUE. Patient was noted to have initial bradycardia cardiac rhythm. Patient was noted to have ROSC. Patient was noted to have some seizure activity and was given IV Ativan. Patient was noted to have some improvement. He was given a fluid bolus. Medical Decision Making Diagnostic Impression: Primary Impression: Sepsis Additional Impressions: Anti-NMDA receptor encephalitis Pneumonia Last Vital Signs Date Time Temp Pulse Resp B/P (MAP) Pulse Ox O2 Delivery O2 Flow Rate FiO2 01/11/19 04:42 84 25 100 01/11/19 02:00 96/59 (71) 96 01/11/19 00:00 98.3 01/11/19 00:00 Mechanical Ventilator Disposition: ADMITTED INPATIENT Condition: Critical Referrals: Klever Leung MD (PCP) Luis Carlos Coello MD January 11, 2019 05:11
--- NOTE | 2019-01-11 05:15 | NUR ---
NURSE NOTES: dr. vishnu gomez called again for the second time, responded and ordered to call dr shay
[2019-01-11 05:26] LABS: ALANINE AMINOTRANSFERASE 122 U/L (12-78); ALBUMIN/GLOBULIN RATIO 0.5 (1.0-2.7); ALKALINE PHOSPHATASE 82 U/L (46-116); ANION GAP 16 mmol/L (5-15); ASPARTATE AMINO TRANSFERASE 133 U/L (15-37); BILIRUBIN,TOTAL 0.4 MG/DL (0.2-1.0); BLOOD UREA NITROGEN 20 mg/dL (7-18); CALCIUM 7.9 MG/DL (8.5-10.1); CARBON DIOXIDE 18 MMOL/L (21-32); CHLORIDE 92 MMOL/L (98-107); CREATININE 1.7 MG/DL (0.55-1.30); PHOSPHORUS 5.5 MG/DL (2.5-4.9); POTASSIUM 5.4 MMOL/L (3.5-5.1); SODIUM 126 MMOL/L (136-145)
[2019-01-11] MEDS ORDERED: Levophed 4mg/4mL Inj IV ONE ×2 (05:39→07:43)
--- NOTE | 2019-01-11 06:40 | NUR ---
NURSE NOTES: Family at bedside.Made aware of Code. to see pt.
--- NOTE | 2019-01-11 07:25 | NUR ---
NURSE NOTES: During HANDS OFF to AI,RN Observe on monitor HR slowly goes down.checked,no palpable pulse CODED.
[2019-01-11] MEDS ORDERED: DOPAMINE IV ONE (07:43)
[2019-01-11] MEDS ORDERED: Tubing IV Secondary IV ONE (07:43)
[2019-01-11] MEDS ORDERED: NS 500ML ONE (07:43)
--- NOTE | 2019-01-11 07:45 | NUR ---
RESPIRATORY NOTE: Code Blue: Pt coded at 0720. No pulse was noted. Assisted in ACLS protocol including chest compressions and bagged pt on 15 L 100% FiO2.Pt was not successfully resuscitated. No pulse noted. Asystolic both monitor. Pt was pronounced at 0744 per MD.
--- NOTE | 2019-01-11 08:05 | Emergency Room Report ---
History of Present Illness General Chief Complaint: Seizure Source: Medical Record Present Illness HPI This patient was in ICU patient. CODE IVA was called overhead. I am not previously familiar with this patient. Per the patient SENIOR DATA WAREHOUSE ARCHITECT, the patient has a history of intractable seizures and is currently being treated for sepsis. Per her report, the patient is maxed out on cardiac pressors and has been hypotensive. The patient coded on the previous shift earlier today. Per the RN report, the patient heart rate became bradycardic and then asystolic. The patient lost pulse and CPR was started. There is also a possible history of an immune disease. On my arrival, CPR is in progress. Allergies: Coded Allergies: No Known Allergies (Unverified , 01/02/19) Patient History Past Medical History: see triage record, seizures Past Surgical History: other - Trach, PEG Reviewed Nursing Documentation: PMH: Agreed; PSxH: Agreed Nursing Documentation-PMH Hx Cardiac Problems: No Hx Cancer: No Hx Seizures: Yes Review of Systems All Other Systems: limited Physical Exam Vital Signs Date Time Temp Pulse Resp B/P (MAP) Pulse Ox O2 Delivery O2 Flow Rate FiO2 01/07/19 07:00 99 21 127/94 (105) 100 01/07/19 07:01 30 01/07/19 08:00 Mechanical Ventilator 01/07/19 08:00 98.5 Sp02 EP Interpretation: other - Trach/bag/valve in progress General Appearance: thin, other - GCS 3, Chronically Ill Head: normocephalic Eyes: bilateral eye other - Fixed and dilated pupils bilaterally Neck: other - Trach in place Cardiovascular #1: other - CPR in progress, asystole Neuologic: other - GCS 3, pupils fixed and dilated., Unresponsive Skin: other - See RN skin exam Medical Decision Making Diagnostic Impression: Primary Impression: Cardiopulmonary arrest Additional Impressions: Sepsis Qualified Codes: A41.9 - Sepsis, unspecified organism Anti-NMDA receptor encephalitis Pneumonia Qualified Codes: J18.1 - Lobar pneumonia, unspecified organism ER Course This patient underwent multiple rounds of CPR and ACLS protocol. Please see the official recording sheet. The patient remained in asystole despite multiple rounds of epinephrine, atropine and a dose of amiodarone. Return of spontaneous circulation was not achieved. The patient's pupils are fixed and dilated. Given the length of cardiopulmonary arrest, I felt that further resuscitation was futile. Time of was 744. This patient is critically ill. This patient required complex medical decision- making, aggressive intervention, resuscitation and CPR. Critical care time: 40 minutes. Last Vital Signs Date Time Temp Pulse Resp B/P (MAP) Pulse Ox O2 Delivery O2 Flow Rate FiO2 01/11/19 07:00 73 27 79/53 (62) 95 01/11/19 05:00 100 01/11/19 04:00 97.8 01/11/19 04:00 Mechanical Ventilator Disposition: Condition: Referrals: Klever Leung MD (PCP) Kira Andrews DO January 11, 2019 08:05
--- NOTE | 2019-01-11 09:33 | NUR ---
Social Service Note SW met with family and provided support. CLOVER also obtained additional history from patient's brother Flynn Roth [phone] who was at bedside. arrangements not in place. CLOVER spoke with [facility] ([place]) [phone]. Case has been cleared. Clearance number [id number].
--- NOTE | 2019-01-11 14:43 | NUR ---
PRONOUNCEMENT: No Code. Called to pronounce patient. Absence of spontaneous respirations, no cardiac or breath sounds on auscultation. Pupils fixed and dilated. No carotid pulse or chest movement. Patient at 0744. DR SIMPSON/ DARRELL PIMENTEL notified PER . Family was notified at .0744
--- NOTE | 2019-01-11 15:50 | Neurology Progress Note ---
Interim History Interim History ROS Limited/Unobtainable: Yes Complaints: NMDA Encephalitis Events: This visit was conducted on January 11, 2019 under supervision ofDR. Aden Interim History No changes in neurological exam with abnormal facial movements persisting but no indication of seizure. Review of Systems All Systems: reviewed and negative except above Objective Physical Exam Last Vital Signs Date Time Temp Pulse Resp B/P (MAP) Pulse Ox O2 Delivery O2 Flow Rate FiO2 01/11/19 07:00 73 27 79/53 (62) 95 01/11/19 05:00 100 01/11/19 04:00 97.8 01/11/19 04:00 Mechanical Ventilator 01/02/19 18:45 55.0 Laboratory Tests Test 01/10/19 17:21 01/11/19 03:50 Urine Color Pale yellow Urine Appearance Slightly cloudy Urine pH 5 (4.5-8.0) Urine Specific [place] 1.015 (1.005-1.035) Urine Protein 1+ (NEGATIVE) H Urine Glucose (UA) 4+ (NEGATIVE) H Urine Ketones Negative (NEGATIVE) Urine Blood 2+ (NEGATIVE) H Urine Nitrite Negative (NEGATIVE) Urine Bilirubin Negative (NEGATIVE) Urine Urobilinogen Normal MG/DL (0.0-1.0) Urine Leukocyte Esterase Negative (NEGATIVE) Urine RBC 2-4 /HPF (0 - 0) H Urine WBC 0-2 /HPF (0 - 0) Urine Squamous Epithelial Cells Occasional /LPF Urine Amorphous Sediment Moderate /LPF (NONE) H Urine Bacteria Moderate /HPF (NONE) H Urine Random Sodium 47 mmol/L (20-110) Urine Creatinine 32.3 MG/DL (30.0-125.0) White Blood Count 28.0 K/UL (4.8-10.8) #*H Red Blood Count 3.19 M/UL (4.70-6.10) L Hemoglobin 9.8 G/DL (14.2-18.0) L Hematocrit 28.3 % (42.0-52.0) L Mean Corpuscular Volume 88 FL (80-99) Mean Corpuscular Hemoglobin 30.6 PG (27.0-31.0) Mean Corpuscular Hemoglobin Concent 34.6 G/DL (32.0-36.0) Red Cell Distribution Width 13.5 % (11.6-14.8) Platelet Count 325 K/UL (150-450) Mean Platelet Volume 5.5 FL (6.5-10.1) L Neutrophils (%) (Auto) % (45.0-75.0) Lymphocytes (%) (Auto) % (20.0-45.0) Monocytes (%) (Auto) % (1.0-10.0) Eosinophils (%) (Auto) % (0.0-3.0) Basophils (%) (Auto) % (0.0-2.0) Differential Total Cells Counted 100 Neutrophils % (Manual) 82 % (45-75) H Lymphocytes % (Manual) 9 % (20-45) L Monocytes % (Manual) 8 % (1-10) Eosinophils % (Manual) 0 % (0-3) Basophils % (Manual) 1 % (0-2) Band Neutrophils 0 % (0-8) Platelet Estimate Adequate Platelet Morphology Normal Hypochromasia 1+ Erythrocyte Sedimentation Rate 94 MM/HR (0-15) H Sodium Level 126 MMOL/L (136-145) L Potassium Level 5.4 MMOL/L (3.5-5.1) H Chloride Level 92 MMOL/L (98-107) L Carbon Dioxide Level 18 MMOL/L (21-32) L Anion Gap 16 mmol/L (5-15) H Blood Urea Nitrogen 20 mg/dL (7-18) H Creatinine 1.7 MG/DL (0.55-1.30) #H Estimat Glomerular Filtration Rate 50.2 mL/min (>60) Glucose Level 286 MG/DL (74-106) H Calcium Level 7.9 MG/DL (8.5-10.1) L Phosphorus Level 5.5 MG/DL (2.5-4.9) H Magnesium Level 1.5 MG/DL (1.8-2.4) L Total Bilirubin 0.4 MG/DL (0.2-1.0) Aspartate Amino Transf (AST/SGOT) 133 U/L (15-37) H Alanine Aminotransferase (ALT/SGPT) 122 U/L (12-78) H Alkaline Phosphatase 82 U/L (46-116) C-Reactive Protein, Quantitative 19.4 mg/dL (0.00-0.90) H Total Protein 5.7 G/DL (6.4-8.2) L Albumin 2.0 G/DL (3.4-5.0) L Globulin 3.7 g/dL Albumin/Globulin Ratio 0.5 (1.0-2.7) L Lipase 73 U/L (73-393) HIV-1 RNA (PCR) log10 Value Pending HIV-1 RNA Ultraquantitative (PCR) Pending General: other Head: other Neck: other Neurologic Exam Mental Status: other Speech: other Language: other Cranial Nerve II: other Cranial Nerves III, IV, : other Cranial Nerve V: other Cranial Nerve VII: other Cranial Nerve VIII: other Cranial Nerve IX: other Cranial Nerve XI: other Cranial Nerve XII: other Motor System: other Sensory: other Coordination: other - Eyes opening intermittently without tracking to noxious stimuli. Decerebrate posturing in UEs to noxious stim. Triple flexing in LEs to stim. Pupils briskly reactive. Gag intact to trach suction. Impression/Recommendations Problems: (1) Seizure disorder (2) Sepsis (3) Anti-NMDA receptor encephalitis (4) Chronic respiratory failure (5) Status post tracheostomy (6) S/P percutaneous endoscopic gastrostomy (PEG) tube placement Status: stable Recommendations EEG ordered - no new seizures recorded as of January 09, 2019 with no significant changes in exam or recorded encephalopathy. LP ordered Test for : Glucose Protein Culture/Sensitivity Oligoclonal Bands Coccoides Anti NMDA antibody HSV Maintain normothermia Commence Broad spectrum Abx Na 135-145 Maintain normoglycemia 1g Phenytoin BID to continue 1-2mg Ativan Q1-2 hrs PRN for seizure activity. IV Keppra 1g BID Check Keppra serum level Record/ report all seizure activity. Q hr Neuro checks . Advisable to commence Rituxan DREA for induction phase x 2 weeks . Higher level of Care requested- awaiting Case Management and coordination of benefits for access to - [facility] Still pending - Patient is considered NEUROLOGICALLY stable for transfer to higher level of care at this time- However leukocytosis appears to be increasing- normothermia being maintained at this time. Visit was performed after midnight - prior to patient's cardiac arrest this morning - Nell Bragg N.P. January 11, 2019 15:50
--- NOTE | 2019-01-12 18:36 | Discharge Summary ---
Discharge Summary Discharge Summary _ DATE OF ADMISSION: 01/02/2019 DATE OF DISCHARGE: 01/11/2019 BRIEF SUMMARY: Patient is an unfortunate 23-year-old male, who was just discharged from [facility]. Patient was transferred to [facility]. Shortly after his arrival, he developed high fever, temperature was 101.8 and heart rate was 140. He was transferred to [facility]. Review of records from [facility] revealed patient had anti-NMDA encephalitis. He was started on PLEX received a total of 5-day course with no clinical improvement. He was started on IVIG. He was subsequently diagnosed with bilateral pneumonia. He had uncontrolled seizures that led to respiratory failure that finally led to a tracheostomy and gastrostomy tube placement. On evaluation at the ED, patient was febrile. Blood pressure dropped and patient was tachycardic. He was given IV bolus. Blood work showed WBC of 11, hemoglobin 11, hematocrit 34, platelet 141. Electrolytes were stable. Lactic acid was 2.1. Valproic acid was less than 3 mcg. Urinalyses showed 1+ protein , 5+ blood, negative leukocyte esterase, 10-15 RBC, 2-4 WBC. Chest x-ray done showed left infiltrates per ED physician. He was admitted to ICU for fever, tachycardia and sepsis. ID was consulted. Zosyn was changed to cefepime. He was given IV vancomycin. Neurologist was consulted. He was placed on seizure precaution. He was given IV Keppra twice daily. He was given frequent neuro checks. He was noted to have anemia, due to underlying chronic medical conditions. Thrombocytopenia, which was multifactorial. Hepatitis panel and HIV were negative. Patient had continued seizures. He was given Ativan as needed. EEG was performed and showed moderate encephalopathy. Neurology suggested spinal tap however unable to be done as patient was not able to lay flat face down. He also recommended to start Rituxan. Blood culture showed growth of coagulase-negative staph. Leukocytosis worsened. Oral vancomycin was given empirically as WBC increased. C. difficile was negative. Fever was improving. He was given cooling blanket. Repeat blood culture was ordered. Echocardiogram showed EF 40 to 45%. Repeat blood culture did not isolate any growth. Sputum culture with gram- negative rods. Cefepime was changed to meropenem. He was continued on IV and oral vancomycin. Electrolyte abnormalities were corrected. Sputum culture showed growth of MDR Pseudomonas. IV vancomycin was discontinued. He was started empirically on micafungin. Patient needed higher level of care. Patient was referred to [facility] transfer center. In the assistant director of financial aid of 01/11/2019, patient was noted that heart rate went down. CODE BLUE was called. There was return of spontaneous circulation. He was started on IV pressors. A few hours later, another CODE BLUE was called. The patient was maxed on pressors and was hypotensive. Heart rate became bradycardic and went asystolic. Resuscitative efforts failed and patient eventually . FINAL DIAGNOSES: Cardiopulmonary arrest Sepsis Anti-NMDA receptor encephalitis Seizure disorder Chronic respiratory failure status post trach G-tube status Rule out pneumonia Probable ventilator associated pneumonia Anemia of chronic disease Thrombocytopenia DISPOSITION: Patient . I have been assigned to complete a discharge summary on this account, I was not involved with the patient's management. Pina Savage NP January 12, 2019 18:36
== END 2019-01-11 07:44 | disposition expired | DRG 720 ==
LOC: EDBD 14:24 → EMR 14:43 → ICU 14:53 → EDBEDREQ 15:51
PROC: 5A1955Z Respiratory Ventilation, Greater than 96 Consecutive Hours (ICD-10-PCS; principal; 2019-01-02)
DX: A41.9 Sepsis, unspecified organism (principal); J95.851 Ventilator associated pneumonia; Z99.11 Dependence on respirator [ventilator] status; G04.81 Other encephalitis and encephalomyelitis; D89.89 Other specified disorders involving the immune mechanism, not elsewhere classified; J96.10 Chronic respiratory failure, unspecified whether with hypoxia or hypercapnia; Z93.0 Tracheostomy status; Z93.1 Gastrostomy status; G40.909 Epilepsy, unspecified, not intractable, without status epilepticus; D64.9 Anemia, unspecified; D69.6 Thrombocytopenia, unspecified; R19.7 Diarrhea, unspecified; E87.6 Hypokalemia; R13.10 Dysphagia, unspecified
CPT/HCPCS: 36415; 36569; 36600; 70450; 71045; 76700; 76870; 76937; 80048; 80053; 80150; 80164; 80202; 80299; 81001; 81003; 82306; 82550; 82570; 82607; 82728; 82803; 82962; 83036; 83540; 83550; 83605; 83615; 83690; 83735; 83880; 84100; 84300; 84443; 84484; 85007; 85025; 85044; 85060; 85384; 85610; 85651; 85660; 85730; 86140; 86703; 86705; 86709; 86803; 87040; 87070; 87081; 87086; 87181; 87205; 87324; 87340; 87536; 92950; 93005; 93306; 93970; 94002; 94003; 94664; 95819; 96361; 96365; 96367; 96368; 96375; 99291; J0171; J1165; J1815